=== PATIENT | male | born 1940 | race Caucasian/White ===

== ENCOUNTER → 2023-10-06 13:10 | Outpatient (REF) | payer MEDICARE, BC, SELFPAY | LOC: RAD 13:10 | PROVIDERS: ATTENDING PHYSICIAN Radiology Radiation Oncology; FAMILY PHYSICIAN Internal Medicine | DX: C34.90 Malignant neoplasm of unspecified part of unspecified bronchus or lung (principal) | CPT/HCPCS: 71250 ==

== ENCOUNTER → 2024-01-19 10:40 | Outpatient (REF) | payer MEDICARE, BC, SELFPAY | LOC: RAD 10:40 | PROVIDERS: ATTENDING PHYSICIAN Surgery Vascular Surgery; FAMILY PHYSICIAN Internal Medicine; REFERRING PHYSICIAN Radiology Radiation Oncology | DX: I71.43 Infrarenal abdominal aortic aneurysm, without rupture (principal); I71.40 Abdominal aortic aneurysm, without rupture, unspecified; C34.90 Malignant neoplasm of unspecified part of unspecified bronchus or lung | CPT/HCPCS: 71250; 74174; Q9967 ==

== ENCOUNTER → 2024-02-06 09:44 | Outpatient (REF) | payer MEDICARE, BC, SELFPAY | LOC: RAD 09:44 | PROVIDERS: ATTENDING PHYSICIAN Surgery Vascular Surgery; FAMILY PHYSICIAN Internal Medicine | DX: I71.40 Abdominal aortic aneurysm, without rupture, unspecified (principal) | CPT/HCPCS: 76770 ==

== ENCOUNTER → 2024-03-01 13:51 | Outpatient (REF) | payer MEDICARE, BC, SELFPAY | LOC: RCS 13:51 | PROVIDERS: ATTENDING PHYSICIAN Internal Medicine Critical Care Medicine; FAMILY PHYSICIAN Internal Medicine | DX: I27.20 Pulmonary hypertension, unspecified (principal) | CPT/HCPCS: 93306; Q9950 ==

== ENCOUNTER → 2024-03-30 07:17 | Outpatient (REF) | payer MEDICARE, BC, SELFPAY | LOC: DHCBC/DCA 07:17 | PROVIDERS: ATTENDING PHYSICIAN Student in an Organized Health Care Education/Training Program | DX: Z94.1 Heart transplant status (principal) | CPT/HCPCS: 78452; 93017; A9500; J2785 ==

== ENCOUNTER 2024-04-12 17:02 | Inpatient (IN) | payer MEDICARE, BC, SELFPAY ==
[2024-04-12] VITALS (8 sets, daily range): BP systolic 112–147; BP diastolic 83–99; BMI 22.0; BMI 21.8
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
[2024-04-12 13:35] LABS: % Basophils 0.5 % (0-2); % Eosinophils 0.7 % (0-6); % Immature Granulocytes 0.5 % (0-0.5); % Lymphocytes 14.8 % (20.5-51.1); % Monocytes 12.2 % (1.7-9.3); % Neutrophils 71.3 % (42.2-75.2); Absolute Eosinophils 0.1 10^3/uL (0-0.7); Absolute Lymphocytes 1.2 10^3/uL (1.2-3.4); Absolute Neutrophils 5.9 10^3/uL (1.4-6.5); Hematocrit 57.2 % (39.0-52.0); Hemoglobin 18.3 g/dL (13.0-18.0); Mean Corpuscular Hgb 27.6 pg (27.0-31.0); Mean Corpuscular Volume 86.3 fL (80.0-94.0); Nucleated Red Blood Cells % 0 % (-); Platelet Count 129 10^3/uL (130-400); Red Blood Cell Count 6.63 10^6/uL (4.70-6.10); Red Cell Dist. Width 16.2 % (11.5-14.5); White Blood Cell Count 8.3 10^3/uL (4.8-10.8)
[2024-04-12 13:38] LABS: ALT (SGPT) 11 U/L (0-50); AST (SGOT) 22 U/L (17-59); Albumin 4.5 g/dl (3.5-5.0); Alkaline Phosphatase 89 U/L (38-126); Blood Urea Nitrogen 71 mg/dl (9-20); Calcium 9.5 mg/dl (8.4-10.2); Carbon Dioxide 25 mmol/L (22-30); Chloride 103 mmol/L (98-107); Estimated Creatinine Clearance 32 ml/min; Glucose 227 mg/dl (70-99); Potassium 4.8 mmol/L (3.5-5.1); Sodium 144 mmol/L (135-145); Total Bilirubin 0.9 mg/dl (0.2-1.3); Total Protein 7.5 g/dl (6.3-8.2); eGFR 39.75
[2024-04-12] MEDS: TYLENOL 650 MG PO (13:53)
[2024-04-12 14:04] LABS: Troponin I < 0.012 ng/ml
[2024-04-12 14:06] LABS: Magnesium 2.2 mg/dl (1.6-2.3)
[2024-04-12 14:17] LABS: NT-proBNP 599 pg/ml
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
[2024-04-12 17:52] LABS: Glucose - Point of Care 98 mg/dl (70-99)
[2024-04-12] MEDS: SOLU-MEDROL PF 40 MG IV (18:38)
[2024-04-12 19:53] LABS: Glucose - Point of Care 179 mg/dl (70-99)
[2024-04-12] MEDS: ELIQUIS 5 MG PO (20:03)
[2024-04-12] MEDS: LOPID 600 MG PO (20:03)
[2024-04-12] MEDS: CELLCEPT 750 MG PO (20:05)
[2024-04-12] MEDS: LANTUS 0.36 UNITS SC (20:06)
[2024-04-12] MEDS: NEURONTIN 600 MG PO (21:52)
[2024-04-12] MEDS: TYLENOL 1000 MG PO (21:52)
[2024-04-12] MEDS: CRESTOR 20 MG PO (21:52)
[2024-04-12] MEDS: LOPRESSOR 100 MG PO (21:53)
[2024-04-12] MEDS: VASOTEC 20 MG PO (22:13)
[2024-04-12] MEDS: PROGRAF 1 MG PO (22:14)
--- NOTE | 2024-04-13 01:23 | PTCARENOTE ---
Received in bed upon change of shift. [address] at 6 liters. No signs of distress. Vitals stable. Call moura with in reach. AAox3.
[2024-04-13 04:13] VITALS: BP 156/96
[2024-04-13] MEDS: SYNTHROID 175 MCG PO (05:44)
[2024-04-13 06:00] VITALS: BMI 21.6
--- NOTE | 2024-04-13 06:34 | PTCARENOTE ---
Patient refused to have any chair or bed alarms. Pt AOx3. Educated patient on hospital protocol and fall risk education. Pt continues to insist that alarm should be removed despite education.
[2024-04-13 07:21] VITALS: BP 149/95
[2024-04-13 07:30] LABS: Glucose - Point of Care 183 mg/dl (70-99)
[2024-04-13 07:32] LABS: Hematocrit 62.1 % (39.0-52.0); Hemoglobin 19.8 g/dL (13.0-18.0); Mean Corp Hgb Conc. 31.9 g/dL (33.0-37.0); Mean Corpuscular Hgb 28.2 pg (27.0-31.0); Mean Corpuscular Volume 88.6 fL (80.0-94.0); Mean Platelet Volume 12.3 fL (7.4-10.4); Platelet Count 122 10^3/uL (130-400); Red Blood Cell Count 7.01 10^6/uL (4.70-6.10); Red Cell Dist. Width 16.3 % (11.5-14.5); White Blood Cell Count 7.3 10^3/uL (4.8-10.8)
[2024-04-13] MEDS: PROGRAF 1.5 MG PO (07:53)
[2024-04-13] MEDS: NEURONTIN 600 MG PO (07:54)
[2024-04-13] MEDS: FARXIGA 10 MG PO (07:54)
[2024-04-13] MEDS: VASOTEC 20 MG PO ×2 (07:54→20:19)
[2024-04-13] MEDS: TYLENOL 1000 MG PO ×3 (07:55→21:20)
[2024-04-13] MEDS: OSCAL CAL 500 500 MG PO (07:56)
[2024-04-13] MEDS: LOPRESSOR 100 MG PO ×2 (07:56→20:19)
[2024-04-13] MEDS: MAG-TAB SR 84 MG PO (07:56)
[2024-04-13] MEDS: THERAGRAN 1 TABLET PO (07:57)
[2024-04-13] MEDS: LOPID 600 MG PO ×2 (07:57→20:19)
[2024-04-13] MEDS: ELIQUIS 5 MG PO ×2 (07:57→20:20)
[2024-04-13] MEDS: LANTUS 0.36 UNITS SC ×2 (07:57→20:20)
[2024-04-13] MEDS: SOLU-MEDROL PF 40 MG IV (07:58)
[2024-04-13] MEDS: NOVOLOG FLEXPEN-LOW RESISTANCE 1 UNITS SC (08:00)
[2024-04-13 08:06] LABS: Blood Urea Nitrogen 75 mg/dl (9-20); Calcium 9.9 mg/dl (8.4-10.2); Carbon Dioxide 22 mmol/L (22-30); Chloride 103 mmol/L (98-107); Estimated Creatinine Clearance 31 ml/min; Glucose 216 mg/dl (70-99); Potassium 5.6 mmol/L (3.5-5.1); Sodium 143 mmol/L (135-145); eGFR 39.75
[2024-04-13] MEDS: SYMBICORT 80/4.5 MCG INHALER 2 PUFF INH ×2 (08:18→19:20)
[2024-04-13] MEDS: SPIRIVA RESPIMAT 2.5 MCG 2 PUFF INH (08:18)
[2024-04-13] MEDS: CELLCEPT 750 MG PO ×2 (08:23→20:19)
[2024-04-13 08:41] LABS: Glycohemoglobin (HgbA1c) 6.9 % (4.0-5.6)
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
[2024-04-13] MEDS: LOKELMA 10 GRAM PO (10:52)
[2024-04-13 11:13] VITALS: BP 126/86
[2024-04-13 11:59] LABS: Glucose - Point of Care 284 mg/dl (70-99)
[2024-04-13] MEDS: NOVOLOG FLEXPEN-LOW RESISTANCE 3 UNITS SC (12:12)
--- NOTE | 2024-04-13 13:55 | PTOTSP ---
Speech Language Pathology
Pt seen for clinical bedside swallow evaluation. Pt and denied any previous or current dysphagia symptoms. P.O. trials of puree, regular solids, and thin liquids provided. Adequate mastication, bolus formation, and A-P transit noted with no
oral residue. No overt signs of aspiration.
Recommend:
(1) Regular solids/thin liquids
(2) General aspiration precautions
(3) Meds as tolerated
(4) STONECUTTER APPRENTICE HAND to sign off. Please reconsult as indicated
[2024-04-13 15:17] VITALS: BP 124/74
--- NOTE | 2024-04-13 15:57 | CM ---
Patient lives with spouse in a one story home with 4 steps to enter, patient is independent with adl's and ambulation, patient has home oxygen at 3 liters from [employer]. shelter case manager will follow with patient progress with physical
therapy and assist with discharge planning needs for patient.
Plan; To follow with patient progress and assist with discharge planning.
[2024-04-13] MEDS: NEURONTIN 300 MG PO ×2 (16:16→21:20)
[2024-04-13 16:56] LABS: Glucose - Point of Care 376 mg/dl (70-99)
[2024-04-13] MEDS: NOVOLOG FLEXPEN-LOW RESISTANCE 5 UNITS SC (17:19)
[2024-04-13 19:52] VITALS: BP 119/79
[2024-04-13 20:01] LABS: Glucose - Point of Care 397 mg/dl (70-99)
[2024-04-13] MEDS: PROGRAF 1 MG PO (21:20)
[2024-04-13] MEDS: CRESTOR 20 MG PO (21:20)
[2024-04-13 23:00] VITALS: BP 105/70
[2024-04-14 03:28] VITALS: BP 104/67
[2024-04-14 05:51] VITALS: BMI 21.5
[2024-04-14 06:00] VITALS: BMI 21.5
[2024-04-14] MEDS: SYNTHROID 175 MCG PO (06:09)
[2024-04-14 07:00] VITALS: BP 118/78
[2024-04-14 07:57] LABS: Hematocrit 56.5 % (39.0-52.0); Mean Corp Hgb Conc. 31.9 g/dL (33.0-37.0); Mean Corpuscular Hgb 28.4 pg (27.0-31.0); Mean Corpuscular Volume 89.1 fL (80.0-94.0); Mean Platelet Volume 11.8 fL (7.4-10.4); Platelet Count 136 10^3/uL (130-400); Red Blood Cell Count 6.34 10^6/uL (4.70-6.10); Red Cell Dist. Width 15.1 % (11.5-14.5); White Blood Cell Count 11.2 10^3/uL (4.8-10.8)
[2024-04-14] MEDS: SPIRIVA RESPIMAT 2.5 MCG 2 PUFF INH (07:57)
[2024-04-14] MEDS: SYMBICORT 80/4.5 MCG INHALER 2 PUFF INH ×2 (07:57→19:25)
[2024-04-14 08:00] LABS: Glucose - Point of Care 97 mg/dl (70-99)
[2024-04-14] MEDS: NOVOLOG FLEXPEN-LOW RESISTANCE SC (08:28)
[2024-04-14 08:30] LABS: Blood Urea Nitrogen 83 mg/dl (9-20); Carbon Dioxide 29 mmol/L (22-30); Chloride 104 mmol/L (98-107); Estimated Creatinine Clearance 33 ml/min; Glucose 78 mg/dl (70-99); Potassium 5.4 mmol/L (3.5-5.1); Sodium 144 mmol/L (135-145); eGFR 42.75
[2024-04-14] MEDS: LANTUS 0.36 UNITS SC ×2 (08:31→21:30)
[2024-04-14] MEDS: ELIQUIS 5 MG PO ×2 (08:32→21:25)
[2024-04-14] MEDS: LOPID 600 MG PO ×2 (08:32→21:27)
[2024-04-14] MEDS: VASOTEC 20 MG PO ×2 (08:32→21:32)
[2024-04-14] MEDS: OSCAL CAL 500 500 MG PO (08:34)
[2024-04-14] MEDS: FARXIGA 10 MG PO (08:34)
[2024-04-14] MEDS: TYLENOL 1000 MG PO ×3 (08:35→21:33)
[2024-04-14] MEDS: NEURONTIN 300 MG PO ×3 (08:35→21:32)
[2024-04-14] MEDS: MAG-TAB SR 84 MG PO (08:36)
[2024-04-14] MEDS: CELLCEPT 750 MG PO ×2 (08:36→21:25)
[2024-04-14] MEDS: LOPRESSOR 100 MG PO ×2 (08:38→21:31)
[2024-04-14] MEDS: PROGRAF 1.5 MG PO (08:38)
[2024-04-14] MEDS: THERAGRAN 1 TABLET PO (08:39)
[2024-04-14] MEDS: SOLU-MEDROL PF 40 MG IV (08:39)
--- NOTE | 2024-04-14 09:39 | W.PN.HOSP.TC ---
Today's Communication/Plan
-
c/w steroid
c/w Nebs
Lokelma
Request for a private room, as pt is a transplant pt on immunosuppressive treatment.
Assessment / Plan
Assessment / Plan
Physical exam:
GEN: No acute distress, conversant, pleasant
HEENT: anicteric, extraocular movements intact, clear oropharynx without exudates
CV: normal S1/S2
RESP: Limited, Rhonchi, mild wheezes.
GI: soft, non-distended, not tender to palpation.
EXT: warm, well perfused, no edema bilaterally
NEURO: AAOx3, non-focal
Psych: no agitation, pleasant.
Assessment and plan:
# Acute superior endplate fracture of L1 with underlying moderate loss of vertebral body height, mild retropulsion of the posterior superior endplate. Multilevel lumbar discogenic degenerative disease/diffuse bone demineralization.
he is feeling better.
Continue with pain control. No worsening pain, no neurologic deficits on exam. c/w Tylenol [id number] and monitor. ordered PT/OT. No local tenderness on examination. No swelling on the back.
#Acute on chronic hypoxic respiratory failure. History of lung cancer.
Underlying COPD, exacerbation
Last echo showed increasing PASP in last few months.
His oxygen requirement is increasing, will c/w midflow.
Likely precipitated by inability to take deep breath from back pain. Mild wheezes heard on examination. c/w steroid.
Continue with nebulizer treatment. I d/w space physicist Dr. Ramirez, pt has advanced lung disease, c/w o2 and titrate as possible. Also consider comfort care if no improvement.
# Leukocytosis, reactive
No fevers
# Reactive polycythemia
Due to Advanced lung disease.
# Chronic kidney disease stage IIIb. Monitor renal function, avoid nephrotoxic agents.
# Status post heart transplant. Continue immunosuppressive therapy. Check tacrolimus level. No fevers reported
# History of coronary artery disease.
# Hypothyroidism. No changes intended
# Diabetes type 2. Continue home medication in addition to insulin sliding scale.
# Hyperkalemia, c/w Lokelma
Total time spent to see the patient, examine the patient on the floor, review data and lab results, discuss treatment plan with patient, pulmonary doctor, nursing staff around 55 minutes
Anticipated Discharge: 24 - 48 hours
Subjective/Interval History
-
Date of Service: April 14, 2024
No chest pain
No sob
Objective Data
-
Labs:
Laboratory Results
04/14/24
07:36
WBC 11.2 H
Hgb 18.0
Hct 56.5 H
Plt Count 136
Sodium 144
Potassium 5.4 H
Chloride 104
Carbon Dioxide 29
BUN 83 H
Creatinine 1.6 H
Glucose 78
Calcium 10.0
Vital Signs:
Vital Signs
Temp Pulse Resp BP Pulse Ox
97.8 F 76 22 118/78 94
04/14/24 07:00 04/14/24 08:32 04/14/24 07:00 04/14/24 08:32 04/14/24 07:00
I&O
04/13/24 04/14/24 04/15/24
06:59 06:59 06:59
Intake Total 720 / 720
Output Total 300 / 300 1550 / 1550
Balance -300 / -300 -830 / -830
[2024-04-14 11:13] VITALS: BP 95/63
[2024-04-14 11:14] LABS: Glucose - Point of Care 177 mg/dl (70-99)
[2024-04-14] MEDS: LOKELMA 10 GRAM PO ×2 (11:44→23:30)
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
[2024-04-14] MEDS: NOVOLOG FLEXPEN-LOW RESISTANCE 1 UNITS SC (12:22)
--- NOTE | 2024-04-14 14:15 | CM ---
Addendum entered by Gracy Benavides 04/14/24 14:56:
sort manager received a consult for hospice, watch case polisher met with patient and family at bedside and reviewed hospice options and patient has selected [facility], referral sent to [facility].
Referral sent to [facility].
Original Note:
Chart reviewed and patient is currently requiring 8 liters of oxygen patient has home oxygen at 3-4 liters, per chart patient with kyphosis and fracture of L1, patient may benefit from PT/OT.
Plan; To follow with patient progress. Per physician note private room has been requested.
[2024-04-14 15:17] VITALS: BP 141/89
--- NOTE | 2024-04-14 15:43 | HOSPNOTE ---
Spoke with family and patient about hospice and the philosophy. The patient needs some time to think about things and is not sure he wants to go home with hospice services. He is thinking he may still want to continue with cardiology visits and
testing. The family will call me tomorrow with an answer but leaning towards going home with VN.
[2024-04-14 17:32] LABS: Glucose - Point of Care 243 mg/dl (70-99)
[2024-04-14] MEDS: NOVOLOG FLEXPEN-LOW RESISTANCE 2 UNITS SC (17:44)
--- NOTE | 2024-04-14 18:07 | TRANSFER ---
Patient received into room 426 in wheelchair. Oriented x3, pleasant. Family at bedside. Oriented to new room and plan of care, pt with no acute complaints, resting comfortably on 8L midflow O2. Call moura within reach.
[2024-04-14 19:30] VITALS: BP 142/89
[2024-04-14 21:11] LABS: Glucose - Point of Care 222 mg/dl (70-99)
[2024-04-14] MEDS: PROGRAF 1 MG PO (21:33)
[2024-04-14] MEDS: CRESTOR 20 MG PO (21:35)
[2024-04-14 23:29] VITALS: BP 102/67
[2024-04-15 03:31] VITALS: BP 119/80
[2024-04-15] MEDS: SYNTHROID 175 MCG PO (05:49)
[2024-04-15 05:58] VITALS: BMI 21.3
[2024-04-15 07:25] VITALS: BP 144/93
[2024-04-15 07:49] LABS: Glucose - Point of Care 67 mg/dl (70-99)
[2024-04-15] MEDS: SPIRIVA RESPIMAT 2.5 MCG 2 PUFF INH (08:07)
[2024-04-15] MEDS: SYMBICORT 80/4.5 MCG INHALER 2 PUFF INH ×2 (08:07→20:23)
[2024-04-15] MEDS: NOVOLOG FLEXPEN-LOW RESISTANCE SC ×2 (08:08→11:46)
[2024-04-15 08:13] LABS: Glucose - Point of Care 82 mg/dl (70-99)
[2024-04-15] MEDS: LANTUS SC (08:16)
[2024-04-15] MEDS: CELLCEPT 750 MG PO ×2 (08:25→20:34)
[2024-04-15] MEDS: PROGRAF 1.5 MG PO (08:25)
[2024-04-15] MEDS: LOPRESSOR 100 MG PO ×2 (08:26→20:34)
[2024-04-15] MEDS: NEURONTIN 300 MG PO ×3 (08:26→21:58)
[2024-04-15] MEDS: OSCAL CAL 500 500 MG PO (08:26)
[2024-04-15] MEDS: FARXIGA 10 MG PO (08:26)
[2024-04-15] MEDS: LOPID 600 MG PO ×2 (08:27→20:34)
[2024-04-15] MEDS: MAG-TAB SR 84 MG PO (08:27)
[2024-04-15] MEDS: THERAGRAN 1 TABLET PO (08:27)
[2024-04-15] MEDS: LOKELMA 10 GRAM PO (08:27)
[2024-04-15] MEDS: VASOTEC 20 MG PO (08:27)
[2024-04-15] MEDS: TYLENOL 1000 MG PO ×3 (08:27→21:58)
[2024-04-15] MEDS: ELIQUIS 5 MG PO ×2 (08:27→20:33)
[2024-04-15] MEDS: SOLU-MEDROL PF 40 MG IV (08:27)
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
[2024-04-15 09:04] LABS: Blood Urea Nitrogen 75 mg/dl (9-20); Calcium 9.7 mg/dl (8.4-10.2); Carbon Dioxide 27 mmol/L (22-30); Chloride 103 mmol/L (98-107); Estimated Creatinine Clearance 35 ml/min; Glucose 46 mg/dl (70-99); Potassium 4.5 mmol/L (3.5-5.1); Sodium 144 mmol/L (135-145); eGFR 46.19
[2024-04-15] MEDS: LANTUS 0.15 UNITS SC (09:39)
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
[2024-04-15 10:07] LABS: Glucose - Point of Care 209 mg/dl (70-99)
--- NOTE | 2024-04-15 11:01 | HOSPNOTE ---
Spoke with spouse and patient and family are now in agreement with hospice and the philosophy. Patient will be driven home by spouse. The spouse states there is an oxygen tank already in the patient's room for transport tomorrow. Equipment will be
ordered and delivered. CM and Attending updated with plan.
[2024-04-15 11:30] VITALS: BP 122/78
--- NOTE | 2024-04-15 11:36 | CM ---
CM reviewed chart, discussed with [facility], plan to return home tomorrow with Hospice services, to transport. IMM reviewed with patient, signed, placed in chart, patient provided with copy. CM will continue to follow for all
discharge planning needs.
Plan; home with and Hospice, tomorrow 04/16/24.
[2024-04-15 11:43] LABS: Glucose - Point of Care 100 mg/dl (70-99)
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
[2024-04-15 15:36] VITALS: BP 124/79
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
[2024-04-15 16:34] LABS: Glucose - Point of Care 165 mg/dl (70-99)
[2024-04-15] MEDS: NOVOLOG FLEXPEN-LOW RESISTANCE 1 UNITS SC (18:08)
[2024-04-15 19:53] VITALS: BP 126/82
[2024-04-15] MEDS: PROGRAF 1 MG PO (21:57)
[2024-04-15] MEDS: LANTUS 0.25 UNITS SC (21:57)
[2024-04-15] MEDS: CRESTOR 20 MG PO (21:58)
[2024-04-15 22:01] LABS: Glucose - Point of Care 294 mg/dl (70-99)
[2024-04-15 23:30] VITALS: BP 144/97
[2024-04-16 00:47] VITALS: BP 144/97
[2024-04-16 04:17] VITALS: BP 133/93
[2024-04-16] MEDS: SYNTHROID 175 MCG PO (05:29)
[2024-04-16 06:00] VITALS: BMI 21.3
[2024-04-16 06:45] LABS: Glucose - Point of Care 46 mg/dl (70-99)
[2024-04-16 07:25] VITALS: BP 139/92
[2024-04-16 07:38] LABS: Glucose - Point of Care 96 mg/dl (70-99)
[2024-04-16] MEDS: SYMBICORT 80/4.5 MCG INHALER 2 PUFF INH (07:50)
[2024-04-16] MEDS: SPIRIVA RESPIMAT 2.5 MCG 2 PUFF INH (07:50)
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
[2024-04-16] MEDS: NOVOLOG FLEXPEN-LOW RESISTANCE SC ×2 (09:51→13:03)
[2024-04-16] MEDS: CELLCEPT 750 MG PO (09:52)
[2024-04-16] MEDS: NEURONTIN 300 MG PO (09:53)
[2024-04-16] MEDS: PROGRAF 1.5 MG PO (09:53)
[2024-04-16] MEDS: OSCAL CAL 500 500 MG PO (09:53)
[2024-04-16] MEDS: LOPRESSOR 100 MG PO (09:54)
[2024-04-16] MEDS: FARXIGA 10 MG PO (09:54)
[2024-04-16] MEDS: MAG-TAB SR 84 MG PO (09:54)
[2024-04-16] MEDS: THERAGRAN 1 TABLET PO (09:55)
[2024-04-16] MEDS: ELIQUIS 5 MG PO (09:55)
[2024-04-16] MEDS: LOPID 600 MG PO (09:55)
[2024-04-16] MEDS: SOLU-MEDROL PF 40 MG IV (09:55)
[2024-04-16] MEDS: TYLENOL 1000 MG PO (09:56)
[2024-04-16] MEDS: LANTUS 0.25 UNITS SC (10:02)
--- NOTE | 2024-04-16 10:55 | CM ---
Addendum entered by Tammy Juan 04/16/24 15:43:
Respiratory to see patient, faxed updated information to [facility]. Clinicals faxed to Palliative Care ([phone]). Patient and family seen bedside, explained [facility] will communicate with patient/family about delivering
new O2.
Addendum entered by Tammy Juan 04/16/24 14:35:
Received update from Hospice, Hospitalist, patient now wishing to return home with VN and Palliative Care, would not like Hospice services. [facility], [facility]. Updated clinicals/script sent to [facility] as patient now requiring 8L O2, awaiting to hear if patient needs new O2 testing.
Plan; no longer home with hospice, home with [facility], PAL care, new O2 needs.
Original Note:
CM reviewed chart, met with patient bedside. Patient plan for discharge home today with Hospice. Patient reports awaiting for oxygen delivery, then will provide transport home. CM will continue to follow for all discharge planning needs.
Plan; home with Hospice.
[2024-04-16 11:32] LABS: Glucose - Point of Care 86 mg/dl (70-99)
[2024-04-16 11:46] VITALS: BP 97/65
--- NOTE | 2024-04-16 13:17 | HOSPNOTE ---
Spoke at length with family and now they are not wishing for hospice services. I spoke about coming back and forth to the hospital but the patient wants to go to the doctor in regards to his AAA. I have a call into case management about palliative
care and SN being set up. Will await a phone call.
--- NOTE | 2024-04-16 14:19 | W.PN.UPDATE ---
Update Note
Progress Note Update
Discharge planning
Patient seen earlier and he reported that his was waiting for hospice agency to deliver oxygen to his home and then be discharged to home. He reported the he was comfortable with his decision regarding hospice and he was going to follow-up
with their doctor only.
I received a call from hospice nurse Peace that the patient changed his mind and did not want hospice but wanted to do palliative care. Oxygen had been delivered from hospice agency to his home.
I went to see the patient. He was sitting in chair and fully oriented. Patient reported that he wanted palliative care and not hospice. He felt that he was misinformed about hospice ( felt he was forced into it with some angry words). He wanted
to continue his medications and outpatient follow-ups with his doctors. He said he had talked to his daughter also and all in agreement about palliative care. I informed the patient that we would always work with him to provide the safest and best
care available within out abilities.
I Will work with end worker Tammy to coordinate with palliative care. Consult for palliative was placed. Will do home health services. The goal is to discharge patient home with home care services and palliative care. Patient seems not in
distress and able to ambulate, going to the bathroom even without oxygen with no symptoms. He should continue to use his oxygen and follow-up with his primary doctor and pulmonary doctor.
He remains on midflow O2. No driving especially now he is on higher oxygen.
This plan was discussed with egg caser and pulmonary doctor production machine shop supervisor also.
I updated nursing staff
Appreciate social service help.
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
--- NOTE | 2024-04-16 15:05 | VNURNOTE ---
Home Health Liaison met with patient, spouse and daughter at bedside to discuss [facility] nurse/therapy, visits, schedule and homebound status. Patient is agreeable and understands that visits at home will be 2-3 x per week to assess and teach medical
management. Family confirms he had an 02 concentrator delivered to house and he has portable 02. Advised daughter to bring portable 02 tank to hospital so patient can use to transport home. [facility] brochure provided with contact information. Patient
is aware that [facility] will contact them for start of care in 1-2 days after discharge from . [facility] supervisor word processing Jaxson notified about admission. [facility] referral completed in [facility].
--- NOTE | 2024-04-16 15:24 | RESPNOTE ---
patients resting room air saturation is 90% on 8L. resting room air is 85%.
[2024-04-16 15:40] VITALS: BP 135/93
== END 2024-04-16 16:15 | disposition home health service (06) | DRG 542 ==
LOC: 4 WEST ACU 17:02
PROVIDERS: Nurse Practitioner Family; ADMITTING PHYSICIAN Internal Medicine; EMERGENCY PHYSICIAN Emergency Medicine; FAMILY PHYSICIAN Internal Medicine; OTHER PHYSICIAN Internal Medicine
DX: M80.08XA Age-related osteoporosis with current pathological fracture, vertebra(e), initial encounter for fracture (principal); J96.21 Acute and chronic respiratory failure with hypoxia; I25.811 Atherosclerosis of native coronary artery of transplanted heart without angina pectoris; I13.0 Hypertensive heart and chronic kidney disease with heart failure and stage 1 through stage 4 chronic kidney disease, or unspecified chronic kidney disease; D84.821 Immunodeficiency due to drugs; I42.9 Cardiomyopathy, unspecified; N17.9 Acute kidney failure, unspecified; M54.9 Dorsalgia, unspecified; D69.6 Thrombocytopenia, unspecified; D75.1 Secondary polycythemia; E87.5 Hyperkalemia; E03.9 Hypothyroidism, unspecified; J43.9 Emphysema, unspecified; N18.32 Chronic kidney disease, stage 3b; I71.43 Infrarenal abdominal aortic aneurysm, without rupture; I71.40 Abdominal aortic aneurysm, without rupture, unspecified; E11.22 Type 2 diabetes mellitus with diabetic chronic kidney disease; E78.00 Pure hypercholesterolemia, unspecified; E11.65 Type 2 diabetes mellitus with hyperglycemia; V49.9XXA Car occupant (driver) (passenger) injured in unspecified traffic accident, initial encounter; Y93.9 Activity, unspecified; Y92.414 Local residential or business street as the place of occurrence of the external cause; Z86.711 Personal history of pulmonary embolism; Z99.81 Dependence on supplemental oxygen; Z79.01 Long term (current) use of anticoagulants; Z85.118 Personal history of other malignant neoplasm of bronchus and lung; Z79.60 Long term (current) use of unspecified immunomodulators and immunosuppressants; Z87.891 Personal history of nicotine dependence; Z82.49 Family history of ischemic heart disease and other diseases of the circulatory system; Z82.3 Family history of stroke; Z91.030 Bee allergy status; Z91.041 Radiographic dye allergy status; Z79.890 Hormone replacement therapy; Z79.51 Long term (current) use of inhaled steroids; Z79.621 Long term (current) use of calcineurin inhibitor; Z79.624 Long term (current) use of inhibitors of nucleotide synthesis; Z86.16 Personal history of COVID-19; Z87.442 Personal history of urinary calculi; Z87.01 Personal history of pneumonia (recurrent)
CPT/HCPCS: 71046; 72110; 80048; 80053; 80197; 82962; 83036; 83735; 83880; 84484; 85025; 85027; 92610; 93005; 94640; 99285

== ENCOUNTER 2024-07-11 02:05 | Emergency (ER) | payer MEDICARE, BC, SELFPAY ==
[2024-07-11] VITALS (7 sets, daily range): BP systolic 97–142; BP diastolic 67–95; BMI 20.7
--- NOTE | 2024-07-11 02:26 | EDRN ---
Pt says he is on palliative care at this time and wears 8 lpm O2 via nasal cannula at all times. Pt has a humidifier at home - TT to RT to set up humidified O2 for pt.
[2024-07-11 02:47] LABS: % Basophils 0.3 % (0-2); % Eosinophils 0.2 % (0-6); % Immature Granulocytes 0.4 % (0-0.5); % Lymphocytes 11.4 % (20.5-51.1); % Monocytes 6.3 % (1.7-9.3); % Neutrophils 81.4 % (42.2-75.2); Absolute Lymphocytes 1.2 10^3/uL (1.2-3.4); Absolute Monocytes 0.7 10^3/uL (0.1-0.6); Absolute Neutrophils 8.7 10^3/uL (1.4-6.5); Hematocrit 49.6 % (39.0-52.0); Hemoglobin 15.5 g/dL (13.0-18.0); Mean Corp Hgb Conc. 31.3 g/dL (33.0-37.0); Mean Corpuscular Hgb 28.7 pg (27.0-31.0); Mean Corpuscular Volume 91.7 fL (80.0-94.0); Nucleated Red Blood Cells % 0 % (-); Platelet Count 151 10^3/uL (130-400); Red Blood Cell Count 5.41 10^6/uL (4.70-6.10); Red Cell Dist. Width 14.5 % (11.5-14.5); White Blood Cell Count 10.7 10^3/uL (4.8-10.8)
[2024-07-11 03:01] LABS: ALT (SGPT) < 10 U/L (0-50); AST (SGOT) 18 U/L (17-59); Alkaline Phosphatase 96 U/L (38-126); Blood Urea Nitrogen 53 mg/dl (9-20); Calcium 9.3 mg/dl (8.4-10.2); Carbon Dioxide 28 mmol/L (22-30); Chloride 102 mmol/L (98-107); Estimated Creatinine Clearance 34 ml/min; Glucose 208 mg/dl (70-99); Lipase 176 U/L (23-300); Potassium 5.3 mmol/L (3.5-5.1); Sodium 142 mmol/L (135-145); Total Bilirubin 0.6 mg/dl (0.2-1.3); Total Protein 7.1 g/dl (6.3-8.2); eGFR 46.19
--- NOTE | 2024-07-11 03:53 | ED.GENMED ---
History of Present Illness
<ALBER Davalos - Last Filed: 07/11/24 05:37>
General
Chief Complaint: Abdominal Pain
Source: patient and spouse
Exam Limitations: none
Time Seen by Provider: 07/11/24 03:20
History of Present Illness
History of Present Illness:
This is a 83-year-old male with PMH of lung cancer, atrial fibrillation, COPD, HTN, hyperlipidemia, diabetes presents the emergency department with c/o abdominal pain. Pt reports sudden onset of diffuse abdominal pain starting at 9pm. Pt took
Tylenol at home and is unable to determine if it provided any relief. He describes a diffuse aching pain with pressure that was 8/10 at its worst and has now subsided to 2/10. He describes radiation of pain to bilateral flanks when the abdominal
pain was severe. Admits to mild dysuria and dark urine. Denies fever/chills, cough, chest pain, palpitations, vomiting, change in bowel habits.
Past History
<ALBER Davalos - Last Filed: 07/11/24 05:37>
Past History
ED Past Medical History: Arrthythmia, Cancer, CHF, HTN, Hypercholesterolemia, IDDM and Other (Heart transplant)
ED Past Surgical History: Other (Heart transplant)
Social History
Tobacco: Non-smoker
Alcohol: None
Drug: None
Personal:
Living: with family
Employment: Retired
Family History
Family History: Other ( sick with similar symptoms)
Phy Exam
<ALBER Davalos - Last Filed: 07/11/24 05:37>
Physical Exam
Physical Exam:
Skin: [place], soft, well-hydrated
Head: Atraumatic, normocephalic
Chest and Lungs: muscle and respiratory effort symmetric without use of accessory muscles; vesicular breath sounds without adventitious sounds; even, quiet breathing
Heart: No lifts or heaves visible; regular rate and rhythm
PV: radial, dorsalis pedis and posterior tibial pulses all intact bilaterally; no tenderness to palpation of LE
Abd: soft, rounded, non-distended abdomen; aorta midline with no visible pulsation; normoactive bowel sounds; no tenderness on palpation; no CVA tenderness
Course
<Kerri Funk, [facility] - Last Filed: 07/11/24 05:37>
Orders/Labs/Results
Orders:
Orders
07/11/24 02:17
Complete Blood Count/With Diff Urgent
Comprehensive Metabolic Panel Urgent
Lipase Urgent
07/11/24 04:34
CT Abd/pelvis Angio W/wo Iv Urgent
Comment:
Reason For Exam: acute upper abd pain, hx AAA s/p repair
0.9% Sodium Chloride 1000 ml [Nss] 1,000 ml IV BOLUS
Diphenhydramine [Benadryl] 50 mg IV NOW STA
Hydrocortisone Sod Succinate [Solu-Cortef] 200 mg IV NOW STA
07/11/24 06:48
Urinalysis Reflex To Culture Urgent
Date Specimen was Collected: 07/11/24
Time Specimen was Collected: 06:45
Urine Microscopic Reflex Cult Urgent
07/11/24 07:10
Lactic Acid Urgent
Abnormal Lab Results
07/11/24 07/11/24
02:17 06:48
MCHC 31.3 L g/dL
(33.0-37.0)
MPV 12.0 H fL
(7.4-10.4)
Absolute Neuts (auto) 8.7 H 10^3/uL
(1.4-6.5)
Absolute Monos (auto) 0.7 H 10^3/uL
(0.1-0.6)
Neutrophils % 81.4 H %
(42.2-75.2)
Lymphocytes % 11.4 L %
(20.5-51.1)
Potassium 5.3 H mmol/L
(3.5-5.1)
BUN 53 H mg/dl
(9-20)
Creatinine 1.5 H mg/dL
(0.7-1.3)
Glucose 208 H mg/dl
(70-99)
Urine Glucose 3+ A
(Negative)
Urine Albumin (Reflex) 1+ A
(Neg - Trace)
07/11/24 02:17
07/11/24 02:17
Vital Signs
Initial and Last Documented VS:
Initial Vital Signs
Temp Pulse Resp BP Pulse Ox
97.5 F 86 19 142/91 91
07/11/24 02:15 07/11/24 02:15 07/11/24 02:15 07/11/24 02:15 07/11/24 02:15
Last Documented Vital Signs
Temp Pulse Resp BP Pulse Ox
97.5 F 85 16 131/90 95
07/11/24 02:15 07/11/24 08:00 07/11/24 08:00 07/11/24 07:00 07/11/24 08:00
<Minal Yo, DO - Last Filed: 07/11/24 08:09>
Orders/Labs/Results
Orders:
Orders
07/11/24 02:17
Complete Blood Count/With Diff Urgent
Comprehensive Metabolic Panel Urgent
Lipase Urgent
07/11/24 04:34
CT Abd/pelvis Angio W/wo Iv Urgent
Comment:
Reason For Exam: acute upper abd pain, hx AAA s/p repair
0.9% Sodium Chloride 1000 ml [Nss] 1,000 ml IV BOLUS
Diphenhydramine [Benadryl] 50 mg IV NOW STA
Hydrocortisone Sod Succinate [Solu-Cortef] 200 mg IV NOW STA
07/11/24 06:48
Urinalysis Reflex To Culture Urgent
Date Specimen was Collected: 07/11/24
Time Specimen was Collected: 06:45
Urine Microscopic Reflex Cult Urgent
07/11/24 07:10
Lactic Acid Urgent
Abnormal Lab Results
07/11/24 07/11/24
02:17 06:48
MCHC 31.3 L g/dL
(33.0-37.0)
MPV 12.0 H fL
(7.4-10.4)
Absolute Neuts (auto) 8.7 H 10^3/uL
(1.4-6.5)
Absolute Monos (auto) 0.7 H 10^3/uL
(0.1-0.6)
Neutrophils % 81.4 H %
(42.2-75.2)
Lymphocytes % 11.4 L %
(20.5-51.1)
Potassium 5.3 H mmol/L
(3.5-5.1)
BUN 53 H mg/dl
(9-20)
Creatinine 1.5 H mg/dL
(0.7-1.3)
Glucose 208 H mg/dl
(70-99)
Urine Glucose 3+ A
(Negative)
Urine Albumin (Reflex) 1+ A
(Neg - Trace)
07/11/24 02:17
07/11/24 02:17
Vital Signs
Initial and Last Documented VS:
Initial Vital Signs
Temp Pulse Resp BP Pulse Ox
97.5 F 86 19 142/91 91
07/11/24 02:15 07/11/24 02:15 07/11/24 02:15 07/11/24 02:15 07/11/24 02:15
Last Documented Vital Signs
Temp Pulse Resp BP Pulse Ox
97.5 F 85 16 131/90 95
07/11/24 02:15 07/11/24 08:00 07/11/24 08:00 07/11/24 07:00 07/11/24 08:00
<ALBER Davalos - Last Filed: 07/11/24 05:37>
MDM/Problems Addressed
MDM/Problems Addressed:
This is a 83 y/o male with abdominal pain that came on suddenly and was 8/10 severity but has since subsided to a 2/10. Pt has an extensive PMH including heart transplant and AAA that was surgically repaired. Will obtain UA and CT.
<ALBER Davalos - Last Filed: 07/11/24 05:37>
*Critical Care Note
Total Time (30-74mins, 75-104mins- exclusive of procedures): Not Applicable
<Mnial Yo DO - Last Filed: 07/11/24 08:09>
*Radiology
Radiology exam reviewed: radiology read reviewed
*Pulse Oximetry
Patient hypoxic: no
ED Attending Note
<ABLER Davalos - Last Filed: 07/11/24 05:37>
-
Portions of this chart may have been created with voice recognition software.� Occasional wrong word or��sound alike� substitutions may have occurred due to the inherent limitations of voice recognition software.
<Minal Yo DO - Last Filed: 07/11/24 08:09>
ED Attending Note
Patient seen and examined by attending physician: Yes
I performed the substantive portion of visit, reviewed & personally made and approve the management plan that is documented in note by myself or MAYURI.: Yes
ED Attending Note:
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
He also has history of endovascular AAA repair as well as history of incidental gallstones.
Resides at home on palliative care. Follows with vascular surgery but admits that he has not been able to follow-up with surveillance AAA imaging due to significant O2 requirement and generalized debility.
Tonight he developed mid to upper abdominal ache that began around 9 PM, has been persistent with intermittent waves of moderate pain. He did take Tylenol without relief however since arrival to the ED abdominal pain seems markedly improved.
He denies back pain nor chest pain, no cough no increased shortness of breath. He has not had a fever nor chills. He did note that his urine was somewhat darker in color tonight as well as mild dysuria.
Prior to tonight he has been feeling fairly well and at his baseline.
GENERAL: 83-year-old gentleman appears his stated age, appears somewhat chronically debilitated, nasal cannula oxygen with humidifier in place. He is bright and alert, pleasant, appears in no acute distress.
EYE: anicteric
NECK: Supple, nontender, no meningismus, no significant adenopathy.
ENT: oral mucosa is moist. Lips are mildly dry. No rhinorrhea.
CARDIAC: Regular rate and rhythm. no murmur.
LUNGS: Mild resting tachypnea, mildly decreased breath sounds throughout.
ABDOMEN: Soft, nondistended, without focal tenderness, no r/g, no cvat. normoactive BS.
NEUROLOGICAL: Alert and oriented x3, no focal neuro deficits.
SKIN: Warm and dry, normal color, skin intact. No rash.
MUSCULOSKELETAL: No C/C/E. peripheral pulses are full and equal b/l. No palpable tenderness.
PSYCH: Normal and appropriate interaction.
Concern for acute gastroenteritis, acute gastritis, acute biliary colic, cholecystitis, pancreatitis, small bowel obstruction, concern for abdominal aortic aneurysm endovascular leak, UTI, pyelonephritis.
Currently comfortable and pain-free.
Labs are overall reassuring with normal white blood cell count, normal H&H.
Chemistries show chronic kidney disease with creatinine of 1.5, stable and unchanged from previous. Moderately elevated BUN of 53 is actually improved from previous. Potassium of 5.3, mildly elevated but similar elevations noted previously.
LFTs within normal limits. Blood sugar elevated at 208 but no evidence of acidosis.
Will initiate IV fluids, will check CT angio abdomen and pelvis.
Will check urinalysis.
07:00
Patient remains comfortable.
CAT scan shows infrarenal AAA measuring 6.1 x 5.9 cm unchanged from previous CTA. Status post iliac aortic endograft placement.
There is note of extensive mesenteric inflammation about multiple loops of small bowel reflecting enteritis�infectious versus inflammatory versus ischemic.
A few top normal caliber loops of small bowel suggestive of developing obstruction versus ileus.
It is reassuring that patient is pain-free and comfortable. Small bowel obstruction unlikely an ischemic bowel is unlikely but will check lactic acid for completeness sake.
I suspect enteritis either foodborne versus viral. Reassuring that he has had no diarrhea, no hematochezia, no fever and white blood cell count is normal.
There is also note of age-indeterminate L1 vertebral body compression fracture causing mild canal stenosis. This is new from previous CT January 2024. Patient denies back pain or recent falls. There is no radicular signs or symptoms.
08:00
Patient is tolerating clear liquids well without return of abdominal pain. No nausea nor vomiting. No diarrhea.
Abdomen is soft without appreciable tenderness.
Urinalysis is unremarkable.
Lactic acid is normal.
I suspect viral enteritis/gastroenteritis. Will discharge to home with recommendations to limit his diet to clear liquids this morning, slowly advance to bland soft foods later today as tolerated.
If diarrhea ensues, may take [id number] Imodium as needed.
Prompt follow-up with PCP for recheck.
Return precautions discussed.
Discharge Plan
Departure
Patient Disposition: Home (Routine Discharge)
Date of Disposition: 07/11/24
Time of Disposition: 08:06
Patient with high blood pressure during this ER visit?: No
Condition: Good
Discharge Problem:
Acute gastroenteritis
Instructions: Viral gastroenteritis in adults, Clear Liquid Diet
Prescriptions:
No Action
levothyroxine 175 mcg Tablet
175 mcg PO DAILY
gabapentin 600 mg Tablet
600 mg PO TID
mycophenolate mofetil 250 mg Capsule
750 mg PO BID
enalapril maleate 20 mg Tablet
20 mg PO BID
therapeutic multivitamin Tablet
1 tab PO DAILY
gemfibrozil 600 mg Tablet
600 mg PO BID
tacrolimus 0.5 mg Capsule
1 mg PO HS
tacrolimus 0.5 mg Capsule
1.5 mg PO DAILY
rosuvastatin 20 mg Tablet
20 mg PO HS
dapagliflozin propanediol [Farxiga] 10 mg Tablet
10 mg PO DAILY
metoprolol tartrate 100 mg tablet
100 mg PO BID
Eliquis 5 mg Tablet
5 mg PO BID
Trelegy Ellipta 100-62.5-25 mcg Blister With Device
1 inh INHALATION R DAILY
magnesium oxide 400 mg magnesium Tablet
600 mg PO DAILY
calcium carbonate [Oyster Shell 600] 600 mg calcium (1,500 mg) Tablet
600 mg PO DAILY
insulin glargine [Basaglar KwikPen U-100 Insulin] 100 unit/mL (3 mL) Insulin Pen
35 unit SC BID
Referrals:
Juan Jose Spear MD [Family Provider] - Call in 1-3 days for appt
Interventions
Interventions:
*Risk Screen - Suicide Last Done: 07/11/24 02:07
*General Assessment Last Done: 07/11/24 02:07
*Neglect/Abuse Screening Last Done: 07/11/24 02:07
ED- Fall Risk Assessment Last Done: 07/11/24 02:28
*ED COVID-19 Vaccine History Last Done: 07/11/24 02:07
BM-[id number] Assessment Last Done: 07/11/24 02:36
Discharge Date and Time
Print Language: [place]
[2024-07-11] MEDS: NSS 1000 IV (04:49)
[2024-07-11] MEDS: BENADRYL 50 MG IV (04:50)
[2024-07-11] MEDS: SOLU-CORTEF 200 MG IV (04:50)
[2024-07-11 07:40] LABS: Lactic Acid 1.1 mmol/L (0.7-2.0)
[2024-07-11 07:50] LABS: Urine Albumin 1+ (Neg - Trace); Urine Bilirubin Negative (Negative); Urine Character Clear (Clear); Urine Color Yellow; Urine Glucose 3+ (Negative); Urine Ketone Negative (Negative); Urine Leukocyte Negative (Negative); Urine Nitrite Negative (Negative); Urine Occult Blood Negative (Negative); Urine Urobilinogen Negative (Neg - 1+)
[2024-07-11 08:07] LABS: Urine Urothelial Cell 0-2 /LPF (FEW)
[2024-07-11 08:09] LABS: Urine Granular Cast 0-2 /LPF (0); Urine Hyaline Cast 0-2 /LPF (0-2); Urine Red Blood Cell 0-2 /HPF (0-2)
== END 2024-07-11 08:37 | disposition home or self-care (01) ==
LOC: EMR 02:05
PROVIDERS: EMERGENCY PHYSICIAN Emergency Medicine; FAMILY PHYSICIAN Internal Medicine
DX: K52.9 Noninfective gastroenteritis and colitis, unspecified (principal); E03.9 Hypothyroidism, unspecified; J44.9 Chronic obstructive pulmonary disease, unspecified; I48.91 Unspecified atrial fibrillation; E11.22 Type 2 diabetes mellitus with diabetic chronic kidney disease; I13.0 Hypertensive heart and chronic kidney disease with heart failure and stage 1 through stage 4 chronic kidney disease, or unspecified chronic kidney disease; I50.9 Heart failure, unspecified; N18.9 Chronic kidney disease, unspecified; E78.00 Pure hypercholesterolemia, unspecified; Z79.01 Long term (current) use of anticoagulants; Z79.4 Long term (current) use of insulin; Z99.81 Dependence on supplemental oxygen; Z94.1 Heart transplant status
CPT/HCPCS: 96374; 96375; 96361; 99284; 74174; 80053; 81003; 81015; 83605; 83690; 85025; Q9967

== ENCOUNTER 2024-07-13 12:58 | Inpatient (IN) | payer MEDICARE, BC, SELFPAY ==
[2024-07-13] VITALS (44 sets, daily range): BP systolic 74–207; BP diastolic 54–170; BMI 21.2
[2024-07-13] MEDS: MAXIPIME 2000 MG IV (10:26)
--- NOTE | 2024-07-13 10:29 | ED.GENMED ---
History of Present Illness
General
Chief Complaint: Breathing Problem
Source: patient and family
Time Seen by Provider: 07/13/24 09:56
History of Present Illness
History of Present Illness:
83-year-old male presents with change in mental status this morning. Ongoing abdominal pain. No shortness of breath fever or other complaints. Patient hypotensive prehospital. Was seen 2 days ago for abdominal pain. Workup at that time was
stable. Some inflammatory changes in the bowel. Normal lactic acid at that time.
Past History
Past History
ED Past Medical History: Arrthythmia, Cancer, CHF, HTN, Hypercholesterolemia, IDDM and Other (Heart transplant)
ED Past Surgical History: Other (Heart transplant)
Social History
Tobacco: Non-smoker
Alcohol: None
Drug: None
Personal:
Living: with family
Employment: Retired
Family History
Family History: Other ( sick with similar symptoms)
Review of Systems
Review of Systems
All Other Systems: Not applicable
Constitutional: Denies fever
Respiratory: Denies trouble breathing
Cardiac: Denies chest pain or syncope
ABD/GI: Reports abdominal pain; Denies bloody stools or black stools
Phy Exam
Physical Exam
Physical Exam:
GENERAL: Alert and oriented in no apparent distress. Hypotensive
EYE: Orbits normal.
NECK: Supple, no significant adenopathy.
ENT: Pharynx without erythema
CARDIAC: Tachycardic and regular no murmur
LUNGS: No severe respiratory distress however hypoxic on 8 L. Distant breath sounds diffusely. Dry rales in the bases
ABDOMEN: No distention. Bowel sounds present. Mild tenderness diffusely. Nonlocalizing. No rebound or guarding. No mass or hernia
NEUROLOGICAL: Alert and oriented , grossly non-focal
SKIN: Warm and dry, no rash or lesion, no discoloration, skin intact.
MUSCULOSKELETAL: No edema,no deformity.Good color
PSYCH: Normal and appropriate interaction.
Scores
Heart Failure Risk
Heart Failure Risk Score: Not Applicable
Sepsis
Sepsis Screening
Sepsis Assessment: Septic Shock
Sepsis Screening: Lactate >/=4mmol/L and Hypotension
Sepsis Screen
Sepsis Screen: Septic Shock
Date: 07/15/24
Time: 09:53
Course
Orders/Labs/Results
Orders:
Orders
07/13/24 09:54
Cr Chest Portable [CR Chest Portable - 1 View] Urgent
Comment:
Reason For Exam: SOB, hypoxic
Reason Study Needs to be Portable: Patient Unstable
07/13/24 09:56
Urinalysis Reflex To Culture Urgent
Date Specimen was Collected: 07/14/24
Time Specimen was Collected: 02:11
O2 Therapy [RESP] Stat
Titrate/Wean O2 to maintain O2 sat greater than (%): 88
07/13/24 09:57
Electrocardiogram (*1) Stat
Reason for Study: Abdominal Pain
07/13/24 10:04
Basic Metabolic Panel Urgent
Complete Blood Count/With Diff Urgent
Lactic Acid Urgent
Lipase Urgent
Blood Culture Q30M
YAMILE Source: Blood/Venous
Specimen Description:
Blood Culture Q30M
YAMILE Source: Blood/Venous
Specimen Description:
07/13/24 10:17
Cefepime HCl [Maxipime] 2,000 mg IV NOW STA
07/13/24 10:41
0.9% Sodium Chloride 1000 ml [Nss] 1,000 ml IV BOLUS
MetroNIDAZOLE 500 MG/100 ML [Flagyl 500 mg] 100 ml IV NOW
07/13/24 10:43
NORepinephrine 4 MG/250 ML [Levophed] 4 mg in 250 ml IV NOW
Initial dose in mcg/min, then titrate:: 2
Titrate to keep:: MAP > 65 mmHg
Titrate by mcg/min:: 1-2 mcg/min
Frequency of titrations (minutes):: 5
Maximum dose in ICU in mcg/min:: 30
Maximum dose in IMU in mcg/min:: 8
Maximum dose in IVU in mcg/min:: 4
Begin to taper infusion when:: Remained at goal for 4hrs
Taper by mcg/min:: 1-2 mcg/min
Frequency of taper (minutes) if patient maintains goal:: 30
Taper to off?: Yes
If infusion off & no longer maintaining goal:: Contact Provider
07/13/24 10:48
ABG [Arterial Blood Gas] Urgent
%Oxygen/Room Air: 8l
07/13/24 10:51
NT-proBNP Routine
Troponin I Routine
07/13/24 11:08
Echo 2D MMode Color/Doppler Urgent
Reason for Study: Shortness of breath
07/13/24 11:42
Add On- LAB Urgent
Tests Added?: Procalcitonin
07/13/24 11:50
CT Abd/pelvis Angio W/wo Iv Stat
Comment:
Reason For Exam: Sepsis/evaluate for ischemic bowel
Potassium Urgent
Procalcitonin Urgent
07/13/24 12:05
Diphenhydramine [Benadryl] 50 mg IV NOW STA
Hydrocortisone Sod Succinate [Solu-Cortef] 200 mg IV NOW STA
07/13/24 12:25
Hydrocortisone Sod Succinate [Solu-Cortef] 100 mg .ROUTE .STK-MED ONE
07/13/24 12:44
Admit/Transfer Patient As Directed
Co-Sign Provider:
Level of Care: Inpatient admission
Assign to:: ICU
Physician / Group: jag
Diagnosis: septic shock
Reason for Hospitalization: septic shock
Expected length of stay greater than two midnights?: Yes
ELOS- Estimated Length of Stay in days: 2
I certify the patient meets the requirements for IP care: Yes
Code Status As Directed
Resuscitation Status: Full Code
PRN Pain Medication Management As Directed
May give lesser potent ordered pain med per pt: Yes
preference::
Protocol:: Medication orders for pain may be administered in a
manner that supports deferring to patient preference
when the pt is:
- Requesting an ordered lesser potent pain medication.
Least to most potent pain medications are defined
as: acetaminophen < NSAID < tramadol < opioids
(morphine, oxycodone, hydromorphone).
- Requesting a lesser dose of the same medication IF
ORDERED.
- Requesting a less intrusive route of administration
if both routes are prescribed by the provider (PO <
IV).
07/13/24 Dinner
NPO
Allow oral meds: Yes
Allow clear liquids: Sips of Clears
07/13/24 15:54
Lactate Level [Lactic Acid] Urgent
07/13/24 17:20
0.9% Sodium Chloride 1000 ml [Nss] 1,000 ml IV 100 mls/hr
Heparin 74608 Units/250 ml 25,000 units in 250 ml IV PER PROTOCOL
Weight to be used for heparin protocol in kilograms (kg):: 65
Protocol:: DVT/PE
PTT Goal Range to be used:: PTT 73 to 111 seconds
Order type:: Initial
INITIAL Infusion Dose (UNITS/KG/hr) & then follow protocol:: 18 units/kg/hr
Infusion Dose in UNITS/hr & then follow protocol (UNITS/hr):: 1,200
INFUSION RATE in mL/hr & then follow protocol (mL/hr):: 12
For DVT/PE algorithm, re-bolus for low PTT?: No
PTT less than or equal to 64 seconds:: No Re-bolus. Increase by 300 units/hr (+ 3mL/hr)
PTT 64.1 to 72.9 seconds:: No Re-bolus. Increase by 100 units/hr (+ 1mL/hr)
PTT 73 to 111 seconds:: Target Range. No change in rate.
PTT 111.1 to 130.9 seconds:: Decrease rate by 100 units/hr (- 1 mL/hr)
PTT 131 to 199.9 seconds:: HOLD for 1 hr. Then decrease by 200 units/hr (- 2mL/hr)
PTT greater than or equal to 200 seconds:: HOLD for 2 hrs & Notify Provider. Then decrease by 300 units/hr
(- 3mL/hr)
Lab follow-up:: Each change, PTT q6h until 2 consecutive are therapeutic. Then
PTT daily.
07/13/24 17:20
GASTROINTESTINAL CONSULT Routine
Consulting Provider: Kamran Slater
Was physician already notified: Yes
VTE Contraindication Routine
VTE Mechanical Device Contraindication: Medical Contraindication
Pharmocologic Contraindication: Medical Contraindication
Heparin Protocol- PTT Orders As Directed
PTT per Heparin protocol: -Obtain CBC and baseline PTT - if not already collected.
-Obtain PTT 6 hours from start of infusion. Then, every 6 hours until 2 consecutive
PTT's are therapeutic. Then, PTT Daily.
-With each rate change, obtain PTT every 6 hours until 2 consecutive PTT's are
therapeutic. Then, PTT Daily.
Activity As Directed
Activity Level: As Tolerated
Notify MD As Directed
Notify physician if: PTT is greater than or equal to 200.
Vital Signs As Directed
Frequency: Per unit guidelines
07/13/24 17:30
Gabapentin [Neurontin] 600 mg PO TID
07/13/24 17:40
Complete Blood Count/No Diff Urgent
Comment: Obtain baseline before beginning heparin infusion if not already collected
Lactate Level [Lactic Acid] Q6H
07/13/24 18:00
Piperacillin/Tazo 3.375 Gram [Zosyn] 3.375 gram in 50 ml IV Q6H
07/13/24 20:00
Gemfibrozil [Lopid] 600 mg PO BID
Mycophenolate [Cellcept] 750 mg PO BID
07/13/24 22:00
Rosuvastatin Calcium [Crestor] 20 mg PO HS
Tacrolimus [Prograf] 1 mg PO HS
07/14/24 04:50
Complete Blood Count/With Diff IN AM
07/14/24 06:00
Levothyroxine [Synthroid] 175 mcg PO DAILY@0600
07/14/24 08:00
Tacrolimus [Prograf] 1.5 mg PO DAILY
07/17/24 06:00
Complete Blood Count/No Diff Q2D
Comment: Notify MD if platelet count is <130,000 or decreases by 50% from baseline
07/19/24 06:00
Complete Blood Count/No Diff Q2D
Comment: Notify MD if platelet count is <130,000 or decreases by 50% from baseline
07/21/24 06:00
Complete Blood Count/No Diff Q2D
Comment: Notify MD if platelet count is <130,000 or decreases by 50% from baseline
07/23/24 06:00
Complete Blood Count/No Diff Q2D
Comment: Notify MD if platelet count is <130,000 or decreases by 50% from baseline
07/25/24 06:00
Complete Blood Count/No Diff Q2D
Comment: Notify MD if platelet count is <130,000 or decreases by 50% from baseline
07/27/24 06:00
Complete Blood Count/No Diff Q2D
Comment: Notify MD if platelet count is <130,000 or decreases by 50% from baseline
07/29/24 06:00
Complete Blood Count/No Diff Q2D
Comment: Notify MD if platelet count is <130,000 or decreases by 50% from baseline
Abnormal Lab Results
07/13/24 07/13/24 07/13/24
10:04 10:48 11:50
WBC 15.8 H 10^3/uL
(4.8-10.8)
MCHC 31.5 L g/dL
(33.0-37.0)
RDW 14.6 H %
(11.5-14.5)
MPV 12.6 H fL
(7.4-10.4)
Abs Immat Gran (auto) 0.1 H 10^3/uL
(0-0.05)
Absolute Neuts (auto) 12.1 H 10^3/uL
(1.4-6.5)
Absolute Monos (auto) 1.8 H 10^3/uL
(0.1-0.6)
Neutrophils % 76.4 H %
(42.2-75.2)
Lymphocytes % 11.3 L %
(20.5-51.1)
Monocytes % 11.6 H %
(1.7-9.3)
pH 7.34 L
(7.35-7.45)
pO2 59 L* mmHg
(83-108)
ABG O2 Sat (Measured) 90.6 L %
(94-98)
Carbon Dioxide 19 L mmol/L
(22-30)
BUN 49 H mg/dl
(9-20)
Glucose 245 H mg/dl
(70-99)
Lactic Acid 4.5 H* mmol/L
(0.7-2.0)
Procalcitonin 0.71 H ng/ml
(0.0-0.25)
07/13/24 10:04
07/13/24 11:50
Vital Signs
Initial and Last Documented VS:
Initial Vital Signs
Temp Pulse Resp BP Pulse Ox
97.1 F 123 22 97/67 84
07/13/24 09:55 07/13/24 09:55 07/13/24 09:55 07/13/24 09:55 07/13/24 09:55
Last Documented Vital Signs
Temp Pulse Resp BP Pulse Ox
97.5 F 128 17 94/59 92
07/15/24 07:54 07/15/24 08:30 07/15/24 08:30 07/15/24 08:30 07/15/24 08:31
MDM/Problems Addressed
Differential Diagnosis Includes:
Complicated medical decision making. Elevated lactic acid, hypotensive, tachycardic, ongoing abdominal symptoms. Consider bowel ischemia, pneumonitis, CHF component. Workup in progress. Careful fluids. Antibiotics. Discussed with GI,
hospitalist, vascular surgery. Will reprep for CT scan. Has been rechecked multiple multiple times. Family updated. Has remained relatively stable so far. Blood pressure improved some. Heart rate improved. Pulse ox improved. Appears
surprisingly well given his vital signs.
*Radiology
Radiology exam reviewed: preliminary read by ED provider (Possible pneumonitis versus CHF) and radiology read reviewed (Pneumonitis versus CHF)
*Pulse Oximetry
Patient hypoxic: yes
*EKG
Interpreted by ED Provider?: Yes
Interpretation: abnormal
Comparison EKG: changes noted
Heart Rate: 116
Rate: tachycardiac
Rhythm: sinus
[place]: normal axis
Interval: normal interval
QRS Pattern: normal QRS
Ischemia: no ischemia
*Precision Lens Technician Interpretation
Rate: tachycardiac
Interpretation: abnormal
Heart Rate: 115
Rhythm: sinus
*Critical Care Note
Total Time (30-74mins, 75-104mins- exclusive of procedures): 45
Data Reviewed
Review of Other/Old Records Reveals: Labs, Records and Testing
Update Note
Update Note:
1028.... Family updated. Critically ill. Etiology at this time is somewhat uncertain. Pneumonitis versus CHF on x-ray. Remains hypotensive. Careful fluids. Workup in progress. Also contacted cardiology for their input. Antibiotics for
pneumonitis.
ED Attending Note
-
Portions of this chart may have been created with voice recognition software.� Occasional wrong word or��sound alike� substitutions may have occurred due to the inherent limitations of voice recognition software.
Discharge Plan
Departure
Patient Disposition: Admit
Date of Disposition: 07/13/24
Time of Disposition: 12:06
Presentation/result/management discussed w/ accepting MD/DO: Cardiology/GI/vascular
Discharge Problem:
Septic shock, Likely secondary to GI source, Possible ischemic bowel, Possible CHF, Renal insufficiency, Known AAA, Known heart transplant
Interventions
Interventions:
*General Assessment Last Done: 07/13/24 09:57
*Neglect/Abuse Screening Last Done: 07/13/24 09:57
ED- Fall Risk Assessment Last Done: 07/13/24 10:18
*Nursing Disposition Last Done: 07/13/24 17:09
ED- Cardiac Assessment Last Done: 07/13/24 10:18
ED- Pulmonary Assessment Last Done: 07/13/24 10:18
Discharge Date and Time
Discharge Date/Time: 07/13/24 17:09
[2024-07-13 10:34] LABS: % Basophils 0.3 % (0-2); % Immature Granulocytes 0.4 % (0-0.5); % Lymphocytes 11.3 % (20.5-51.1); % Monocytes 11.6 % (1.7-9.3); % Neutrophils 76.4 % (42.2-75.2); Absolute Immature Granulocytes 0.1 10^3/uL (0-0.05); Absolute Lymphocytes 1.8 10^3/uL (1.2-3.4); Absolute Monocytes 1.8 10^3/uL (0.1-0.6); Absolute Neutrophils 12.1 10^3/uL (1.4-6.5); Hematocrit 50.4 % (39.0-52.0); Hemoglobin 15.9 g/dL (13.0-18.0); Mean Corp Hgb Conc. 31.5 g/dL (33.0-37.0); Mean Corpuscular Hgb 28.9 pg (27.0-31.0); Mean Corpuscular Volume 91.5 fL (80.0-94.0); Mean Platelet Volume 12.6 fL (7.4-10.4); Nucleated Red Blood Cells % 0 % (-); Platelet Count 191 10^3/uL (130-400); Red Blood Cell Count 5.51 10^6/uL (4.70-6.10); Red Cell Dist. Width 14.6 % (11.5-14.5); White Blood Cell Count 15.8 10^3/uL (4.8-10.8)
[2024-07-13 10:40] LABS: Lactic Acid 4.5 mmol/L (0.7-2.0)
[2024-07-13] MEDS: FLAGYL 500 MG 100 IV (10:53)
[2024-07-13] MEDS: NSS 1000 IV ×2 (10:54→17:44)
[2024-07-13 10:55] LABS: B.E. -4.4 mmol/L; O2 Saturation % 90.6 % (94-98); PCO2 39 mmHg (35-48); pH 7.34 (7.35-7.45)
[2024-07-13 10:59] LABS: PO2 59 mmHg (83-108)
--- NOTE | 2024-07-13 11:10 | CON.CAR ---
Consultation
Consultation Request
Date/Time Consultation Requested: 07/13/2024 10:30
Date/Time Consultation Performed: 07/13/2024 10:50
Requesting Provider: Dr. Chino
Performing Provider: RADHA Lebron for Dr. Helm
Reason for Consultation: Hypotension, hypoxia
Medical History
-
Chief Complaint: Fever
History of Present Illness:
Lloyd Shearer is an 83-year-old male (known to Dr. 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
surveillance, COPD, RLL SCC status post XRT, hypertension, type 2 diabetes mellitus, chronic kidney disease, prior PE on lifetime anticoagulation, and dyslipidemia, who presented to the emergency department yesterday with complaints of abdominal
pain. He endorsed associated shortness of breath. He arrived via EMS. He was seen in the emergency department 07/11/2024 with a chief complaint of abdominal pain. He reported it was diffuse. It did improve with acetaminophen. He had a CT scan
that showed his AAA was stable. Imaging consistent with severe acute enteritis/ileus likely of infectious/inflammatory etiology. His urinalysis was unremarkable. His lactic acid was within normal limits. He was discharged home. He feels like
his abdominal discomfort is worse. It is tender to palpation. His last bowel movement was Friday. He has been having intermittent nausea without vomiting. He has been taking all of his medications as directed and denies missed doses including
tacrolimus and apixaban. On exam, he is tachycardic, hypotensive, and hypoxic. His daughter is at the bedside. She is aware that he is critically ill.
Past Medical History
Past Medical History: Cancer (SCC lung s/p XRT), CHF (S/P transplant 2001), COPD, HTN, NIDDM, Renal Failure (CKD) and Other (Severe pulmonary hypertension, prior PE on lifetime anticoagulation, AAA status post EVAR)
Past Surgical History: Cardiac (Heart transplant [2001])
Social History
Tobacco: Former Smoker
Alcohol: None
Drug: None
Personal:
Living: With Family
Employment: Retired
Family History
Family History: Reviewed & Not Pertinent
Allergies / Home Medications
Allergy/AdvReac Type Severity Reaction Status Date / Time
bee venom protein (honey bee) Allergy hives and Verified 07/11/24 02:14
throat
tightness
Iodinated Contrast Media Allergy Hives Verified 07/11/24 02:14
�Medication �Instructions �Recorded �Confirmed �Type
dapagliflozin propanediol 10 mg 10 mg PO DAILY Diabetes 12/25/21 07/11/24 History
tablet (Farxiga)
enalapril maleate 20 mg tablet 20 mg PO BID Blood pressure 12/25/21 07/11/24 History
gabapentin 600 mg tablet 600 mg PO TID Pain 12/25/21 07/11/24 History
gemfibrozil 600 mg tablet 600 mg PO BID High cholesterol 12/25/21 07/11/24 History
levothyroxine 175 mcg tablet 175 mcg PO DAILY Thyroid 12/25/21 07/11/24 History
mycophenolate mofetil 250 mg 750 mg PO BID Transplant 12/25/21 07/11/24 History
capsule
rosuvastatin 20 mg tablet 20 mg PO HS High cholesterol 12/25/21 07/11/24 History
tacrolimus 0.5 mg capsule, 1 mg PO HS Transplant 12/25/21 07/11/24 History
immediate-release
tacrolimus 0.5 mg capsule, 1.5 mg PO DAILY Transplant 12/25/21 07/11/24 History
immediate-release
therapeutic multivitamin 1 tab PO DAILY Supplement 12/25/21 07/11/24 History
metoprolol tartrate 100 mg tablet 100 mg PO BID Blood Pressure 09/19/22 07/11/24 History
apixaban 5 mg tablet (Eliquis) 5 mg PO BID Blood Clot 04/12/24 07/11/24 History
Prevention/Tx
fluticasone fur. 100 mcg-umeclid 1 inh inhalation R DAILY 04/12/24 07/11/24 History
62.5 mcg-vilant 25 mcg Lung/Breathing Issues
inhalat.powder (Trelegy Ellipta)
magnesium oxide 600 mg PO DAILY Supplement 04/12/24 07/11/24 History
calcium carbonate 600 mg PO DAILY 07/11/24 07/11/24 History
insulin glargine 100 unit/mL (3 35 unit SC BID 07/11/24 07/11/24 History
mL) subcutaneous pen (Basaglar
KwikPen U-100 Insulin)
Review of Systems
-
History Source: Patient
All other systems: Negative unless noted
Constitutional: Fatigue
EENT: No Symptoms
Respiratory: Trouble Breathing
Cardiac: No Symptoms
Abdomen/GI: Abdominal Pain and Nausea
: No Symptoms
Musculoskeletal: No Symptoms
Skin: No Symptoms
Neurological: Weakness
Endocrine: No Symptoms
Hematologic/Lymphatic: No Symptoms
Physical Exam
Vital Signs
Temp Pulse Resp BP Pulse Ox
97.1 F 119 18 86/61 86
07/13/24 09:55 07/13/24 10:15 07/13/24 10:15 07/13/24 10:15 07/13/24 10:18
Lab Results
07/13/24 10:04
Troponin I Cancelled 07/13/24 10:04
[id number]-[id number] Pept Cancelled 07/13/24 10:04
Physical Exam
General: Well Developed and Respiratory Distress (mild)
HEENT: Normocephalic, Anicteric and Moist Mucous Membranes
Respiratory: Crackles and Non Labored Respirations
Cardiac: S1/S2 and Regular Rhythm; Negative Peripheral Edema
Breast: Deferred by me
GI: Non Distended and Tender
Rectal: Deferred by Provider
Genito-urinary: No Costovertebral Tender
Musculoskeletal: No Cyanosis
Skin: Warm and Dry
Neuro: AO x 3
Hematologic/Lymphatic: No Lymphadenopathy
Psych: Calm
Impression / Plan
-
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
type 2 diabetes mellitus, chronic kidney disease, prior PE on lifetime anticoagulation, and dyslipidemia c/o abdominal pain.
Primary sales operations manager: Dr. Helm
Sepsis in an immunocompromise host
-Hypotension, tachycardia, leukocytosis and lactic acidosis
-Repeat lactate in 4 hours, procalcitonin added to labs
-Cultures are pending
-CXR appears to be pneumonitis
-His normal troponin is reassuring against cardiogenic shock
Abdominal pain
-CT 07/11/2024 with severe acute enteritis/ileus
-Consider GI consult
Chronic hypoxemic respiratory failure, in the setting of COPD, on 8 L nasal cannula at baseline
End-stage ischemic cardiomyopathy status post LVAD then OHT ([facility], 2001)
-Potassium reordered, unable to result by lab due to hemolysis
-Update echocardiogram
-Continue antirejection medications
Pulmonary hypertension, severe
-WHO group 3?
-Last PASP 72 mmHg, update TTE
-RV dilated with normal function
AAA s/p EVAR complicated by endoleak
-CT 07/11/2024 showed no acute changes with suspected persistent type II endoleak
Hypotension, in the setting of sepsis, hold all agents for now - his tachycardia is a result of sepsis
CKD, follow, may worsen with hypotension
COPD, severe, follows with Dr. Cm in the outpatient setting
Prior PEs, on lifelong anticoagulation
Type 2 diabetes mellitus, per primary
Squamous cell carcinoma stage IIIa, right lower lobe, s/p XRT, PET avid, following with Drs. Craig & Consuelo
[2024-07-13 11:28] LABS: NT-proBNP 3250 pg/ml; Troponin I < 0.012 ng/ml
[2024-07-13 11:37] LABS: Blood Urea Nitrogen 49 mg/dl (9-20); Calcium 8.9 mg/dl (8.4-10.2); Carbon Dioxide 19 mmol/L (22-30); Chloride 101 mmol/L (98-107); Estimated Creatinine Clearance 40 ml/min; Glucose 245 mg/dl (70-99); Lipase 179 U/L (23-300); Sodium 138 mmol/L (135-145); eGFR 54.85
[2024-07-13 12:21] LABS: Potassium 4.7 mmol/L (3.5-5.1)
[2024-07-13] MEDS: BENADRYL 50 MG IV (12:30)
[2024-07-13] MEDS: SOLU-CORTEF 200 MG IV (12:30)
[2024-07-13 12:38] LABS: Procalcitonin 0.71 ng/ml (0.0-0.25)
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
--- NOTE | 2024-07-13 12:52 | HPS.HSE ---
Family Physician
-
Family Physician: Milan Spear
Chief Complaint
-
abdominal pain
History of Present Illness
83-year-old male past medical history of ischemic cardiomyopathy status post heart transplant in 2001, CAD, pulmonary embolism on Eliquis, severe pulm hypertension, abdominal aortic aneurysm status post EVAR complicated by endoleak, squamous cell
lung cancer stage III, COPD, hypothyroidism, type 2 diabetes, presented to the emergency room for diffuse abdominal pain starting 2 days ago and some vomiting today. Came to the emergency room and had CAT scan of the abdomen pelvis showing
enteritis/ileitis and discharge.
No diarrhea. No fevers or chills. No chest pain shortness of breath is worse than usual. No cough. No lower extremity edema.
Denies smoking alcohol use.
Medical History
Past Medical History
Past Medical History: Reports Other (ischemic cardiomyopathy status post heart transplant in 2001, CAD, pulmonary embolism on Eliquis, severe pulm hypertension, abdominal aortic aneurysm status post EVAR complicated by endoleak, squamous cell lung
cancer stage III, COPD, hypothyroidism, type 2 diabetes)
Past Surgical History: Reports Other ((Heart transplant))
Social History
Tobacco: Non-smoker
Alcohol: None
Drug: None
Family History
Family History: Not pertinent
Allergies / Home Medications
Allergies reflects when Allergies were last updated in [employer].
Home Medications with original date entered in [employer]
Allergy/Medication List:
Allergies
Allergy/AdvReac Type Severity Reaction Status Date / Time
bee venom protein (honey bee) Allergy hives and Verified 07/11/24 02:14
throat
tightness
Iodinated Contrast Media Allergy Hives Verified 07/11/24 02:14
Home Medications
dapagliflozin propanediol 10 mg tablet (Farxiga) 10 mg PO DAILY Diabetes 12/25/21
enalapril maleate 20 mg tablet 20 mg PO BID Blood pressure 12/25/21
gabapentin 600 mg tablet 600 mg PO TID Pain 12/25/21
gemfibrozil 600 mg tablet 600 mg PO BID High cholesterol 12/25/21
levothyroxine 175 mcg tablet 175 mcg PO DAILY Thyroid 12/25/21
mycophenolate mofetil 250 mg capsule 750 mg PO BID Transplant 12/25/21
rosuvastatin 20 mg tablet 20 mg PO HS High cholesterol 12/25/21
tacrolimus 0.5 mg capsule, immediate-release 1 mg PO HS Transplant 12/25/21
tacrolimus 0.5 mg capsule, immediate-release 1.5 mg PO DAILY Transplant 12/25/21
therapeutic multivitamin 1 tab PO DAILY Supplement 12/25/21
metoprolol tartrate 100 mg tablet 100 mg PO BID Blood Pressure 09/19/22
apixaban 5 mg tablet (Eliquis) 5 mg PO BID Blood Clot Prevention/Tx 04/12/24
fluticasone fur. 100 mcg-umeclid 62.5 mcg-vilant 25 mcg inhalat.powder (Trelegy Ellipta) 1 inh inhalation R DAILY Lung/Breathing Issues 04/12/24
magnesium oxide 600 mg PO DAILY Supplement 04/12/24
calcium carbonate 600 mg PO DAILY 07/11/24
insulin glargine 100 unit/mL (3 mL) subcutaneous pen (Basaglar KwikPen U-100 Insulin) 36 unit SC BID 07/11/24
Review of Systems
-
History Source: Patient
A 12 point ROS was completed and negative except as noted: Yes
Constitutional: Reports No Symptoms
EENT: Reports No Symptoms
Respiratory: Reports No Symptoms
Cardiac: Reports No Symptoms
Abdomen/GI: Reports See HPI
: Reports No Symptoms
Musculoskeletal: Reports No Symptoms
Skin: Reports No Symptoms
Neurological: Reports No Symptoms
Endocrine: Reports No Symptoms
Hematologic/Lymphatic: Reports No Symptoms
Psych: Reports No Symptoms
Physical Exam
Vital Signs
Vital Signs
Temp Pulse Resp BP Pulse Ox
97.1 F 115 16 94/64 85
07/13/24 09:55 07/13/24 11:15 07/13/24 11:15 07/13/24 11:15 07/13/24 11:15
Physical Exam
General: Well Developed, Well Nourished and No Apparent Distress
HEENT: NormoCephalic, Moist mucous membranes and Atraumatic
Respiratory: Clear
Cardiac: S1/S2 and Regular Rhythm; No Murmur or Rub
GI: Soft, Non Distended, Normal Bowel Sounds and Tender (diffusely ); No Organomegaly
Rectal: Deferred by Provider
Musculoskeletal: No Clubbing, No Cyanosis and No Edema
Skin: No Rash
Neuro: Nonfocal/grossly intact
Laboratory Results
-
07/13/24 10:04
07/13/24 11:50
Laboratory Results
pH 7.34 (7.35-7.45) L 07/13/24 10:48
pCO2 39 mmHg (35-48) 07/13/24 10:48
pO2 59 mmHg (83-108) L* 07/13/24 10:48
HCO3 21.0 mmol/L (21-28) 07/13/24 10:48
Lactic Acid 4.5 mmol/L (0.7-2.0) H* 07/13/24 10:04
Total Bilirubin Cancelled 07/13/24 10:04
AST Cancelled 07/13/24 10:04
ALT Cancelled 07/13/24 10:04
Alkaline Phosphatase Cancelled 07/13/24 10:04
Troponin I < 0.012 ng/ml 07/13/24 10:51
Lipase 179 U/L (23-300) 07/13/24 10:04
Data Reviewed
-
Lab Data: Labs Reviewed by me
Old Records: Reviewed
Impression/Plan
-
IMPRESSION:
PLAN:
# Sepsis (leukocytosis, tachycardia, hypotension) secondary to acute enteritis/ileitis infectious versus ischemic bowel + Pneuminitis
-CT scan from 2 days ago shows excluded infrarenal fusiform aneurysm sac up to 6.3 x 6.3 cm, suspected persistent type II endoleak without acute changes, severe acute enteritis/ileitis
-Lactic acid 4.5
-N.p.o.
-Blood cultures
-Received 1 L of IV fluids, currently off of Levophed
-IV fluids
-Zosyn
-CT abdomen pelvis angio with and without contrast pending
-X-ray showing mild CHF and pneumonitis
-GI consulted
Abdominal aortic aneurysm status post EVAR complicated by endoleak
-CT scan from 07/11 shows no acute changes with suspected persistent type II endoleak
-Repeat CAT scan pending
-Patient follows with Dr. Victoria
Chronic hypoxemic respiratory failure on 8 L oxygen baseline secondary to COPD
Chronic COPD
-Continue Trelegy
End-stage cardiomyopathy status post LVAD then heart transplant 2001 at [facility]
-Echo pending
-Not clinically in heart failure
-Cardiology consulted
-Continue mycophenolate, tacrolimus
-Hold enalapril
-Hold metoprolol
Severe pulmonary hypertension
History of prior pulmonary embolism on Eliquis
-Switch Eliquis to heparin drip in anticipation of possible procedures during hospitalization
Squamous cell lung cancer stage III of right lower lobe status post radiation,
Hypothyroidism
Type 2 diabetes
-Hold dapagliflozin
-Reduce Lantus from 36 units twice daily to 18 units twice daily
-Insulin sliding scale
Neuropathy
-Continue gabapentin
Hyperlipidemia
-Continue gemfibrozil, statin
Full code
DVT prophylaxis�heparin drip
N.p.o.
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
[2024-07-13 16:16] LABS: Lactic Acid 2.5 mmol/L (0.7-2.0)
--- NOTE | 2024-07-13 16:18 | CON.VAS ---
Addendum entered and electronically signed by Rahul Victoria III, MD 07/13/24 17:41:
This patient was seen and examined with RADHA Ortez. I agree with the history and physical exam as well as the assessment and plan. I have the following additions:
Patient well-known to me
Endovascular aortic aneurysm repair in 2021. Known type II from lumbar branch
Heart transplant, COPD, lung cancer
Patient is on chronic anticoagulation
Acute onset abdominal pain 07/10/2024 at 9 PM
No precipitating factors
He presented to the ED here at on the and was subsequently discharged
Persistent abd pain
Diffuse
Several episodes of vomiting (brown/bilious)
Last BM Friday (normally goes every day regularly)
On exam he is chronically ill appearing
Tachycardic
On 10 L via NC with O2 sats in the low/mid 80s
Family at bedside
Abd diffusely tender but no peritoneal signs. Aneurysm is not tender
I personally reviewed the CTAs from 07/11 and today
Celiac and SMA both widely patent
There is no type Ia or Ib endoleak from the EVAR. Small posterior endoleak likely from type II/lumbar
On centerline reconstruction the excluded sac measures 61 mm in max diameter (image attached). In January 2024 (attached) the aneurysm measured similar diameter.
I do not believe his presentation is related to mesenteric ischemia based on the CT results x 2 showing widely patent celiac and SMA. He is on chronic anticoagulation and therefore a thrombotic vascular etiology for abdominal pain would seem much
less likely. The excluded AAA is stable in size compared to the last scan in January 2024 and the type II endoleak posteriorly is small/stable. No new endoleaks are present.
Would continue to workup other etiologies for abdominal pain as vascular causes seem less likely with the diagnostic workup performed thus far. Consider general surgery consult.
I discussed my impression in detail with patient and family in the ED.
Call with questions/concerns.
Signed:
Rahul Victoria III, MD
[facility]
[phone] (cell)
Original Note:
Consultation
Consultation Request
Performing Provider: Julien
Reason for Consultation: Rule out mesenteric ischemia
Medical History
-
Chief Complaint: Abdominal pain
History of Present Illness:
83-year-old male with past medical history ischemic cardiomyopathy status post heart transplant in 2001, CAD, PE on Eliquis, severe pulmonary hypertension, AAA status post EVAR with endoleak, squamous cell lung cancer stage III, COPD,
hypothyroidism, diabetes type 2. Presents to the ER today with severe abdominal pain since Friday. Patient denies event causing this pain. Reports it started suddenly and has been constant since. Patient was seen in the ER 2 days ago for this
same pain. Patient states when he left the ER he still had the pain but felt moderately better. Returns for pain ongoing. Abdominal pain being worked up by GI and cardiology. Vascular consult to rule out mesenteric ischemia.
Patient seen at bedside this afternoon with Dr. Victoria, family at bedside as well.
Patient appears relatively comfortable. He is on 10 L nasal cannula with pulse ox low 80s. Patient states he is on 8 L nasal cannula at home. He is tachycardic in the 111-119. Slightly hypotensive. Patient states he had 2 bouts of vomiting
bilious fluid.
CTA reviewed at bedside with family and patient.
Impression: Vasculature: Aortobiiliac stent graft redemonstrated. Excluded infrarenal fusiform aneurysm sac measures up to 6.3 cm, stable. Redemonstration of probable type II endoleak with contrast enhancement present within the posterior margin of
the aneurysm sac on arterial and delayed phase sequences, similar to prior. No abdominal aortic dissection. Stable fusiform aneurysmal dilatation of the right common iliac artery measuring up to 2.6 cm. Mild to moderate atherosclerotic changes.
Past Medical History
Past Medical History: Other (See above)
Past Surgical History: Other (Heart transplant 2001)
Social History
Personal:
Living: With Family
Family History
Family History: Reviewed & Not Pertinent
Allergies / Home Medications
Allergy/AdvReac Type Severity Reaction Status Date / Time
bee venom protein (honey bee) Allergy hives and Verified 07/11/24 02:14
throat
tightness
Iodinated Contrast Media Allergy Hives Verified 07/11/24 02:14
�Medication �Instructions �Recorded �Confirmed �Type
dapagliflozin propanediol 10 mg 10 mg PO DAILY Diabetes 12/25/21 07/13/24 History
tablet (Farxiga)
enalapril maleate 20 mg tablet 20 mg PO BID Blood pressure 12/25/21 07/13/24 History
gabapentin 600 mg tablet 600 mg PO TID Pain 12/25/21 07/13/24 History
gemfibrozil 600 mg tablet 600 mg PO BID High cholesterol 12/25/21 07/13/24 History
levothyroxine 175 mcg tablet 175 mcg PO DAILY Thyroid 12/25/21 07/13/24 History
mycophenolate mofetil 250 mg 750 mg PO BID Transplant 12/25/21 07/13/24 History
capsule
rosuvastatin 20 mg tablet 20 mg PO HS High cholesterol 12/25/21 07/13/24 History
tacrolimus 0.5 mg capsule, 1 mg PO HS Transplant 12/25/21 07/13/24 History
immediate-release
tacrolimus 0.5 mg capsule, 1.5 mg PO DAILY Transplant 12/25/21 07/13/24 History
immediate-release
therapeutic multivitamin 1 tab PO DAILY Supplement 12/25/21 07/13/24 History
metoprolol tartrate 100 mg tablet 100 mg PO BID Blood Pressure 09/19/22 07/13/24 History
apixaban 5 mg tablet (Eliquis) 5 mg PO BID Blood Clot 04/12/24 07/13/24 History
Prevention/Tx
fluticasone fur. 100 mcg-umeclid 1 inh inhalation R DAILY 04/12/24 07/13/24 History
62.5 mcg-vilant 25 mcg Lung/Breathing Issues
inhalat.powder (Trelegy Ellipta)
magnesium oxide 600 mg PO DAILY Supplement 04/12/24 07/13/24 History
calcium carbonate 600 mg PO DAILY 07/11/24 07/13/24 History
insulin glargine 100 unit/mL (3 36 unit SC BID 07/11/24 07/13/24 History
mL) subcutaneous pen (Basaglar
KwikPen U-100 Insulin)
Review of Systems
-
History Source: Patient and Family
All other systems: Negative unless noted
Constitutional: Reports Weight Loss
EENT: Reports No Symptoms
Respiratory: Reports Trouble Breathing
Cardiac: Reports No Symptoms
Vascular: Denies Leg Pain / Claudication
Abdomen/GI: Reports Abdominal Pain and Vomiting
Musculoskeletal: Reports No Symptoms
Skin: Reports No Symptoms
Neurological: Reports No Symptoms
Physical Exam
Vital Signs
Temp Pulse Resp BP Pulse Ox
98.0 F 115 24 80/62 89
07/13/24 14:30 07/13/24 15:00 07/13/24 15:00 07/13/24 13:46 07/13/24 15:00
Lab Results
07/13/24 10:04
07/13/24 11:50
Troponin I < 0.012 ng/ml 07/13/24 10:51
Suv-P-Efbqopoesvw Pept 3250 pg/ml 07/13/24 10:51
Physical Exam
General: Other (Shortness of breath at patient's baseline)
HEENT: Normocephalic and Atraumatic
Respiratory: Other (ROBLES, shortness of breath)
Cardiac: Negative JVD
GI: Soft, Non Distended and Tender (Right lower quadrant)
Musculoskeletal: No Clubbing and No Cyanosis
Skin: Warm
Neuro: Awake, Alert and Oriented
Psych: Calm
Assessment / Plan
-
83-year-old male here with severe abdominal pain that began on Friday and has persisted.
No evidence of mesenteric ischemia by CTA, no obvious vascular etiology for abdominal pain
Discussed with vascular attending
Data Reviewed
-
CT Scan: Discussed with Patient
[2024-07-13 17:32] LABS: Glucose - Point of Care 241 mg/dl (70-99)
[2024-07-13] MEDS: ZOSYN 50 IV ×2 (17:56→23:48)
[2024-07-13] MEDS: HEPARIN 25000 UNITS/250 ML IV (18:00)
[2024-07-13 18:01] LABS: Lactic Acid 1.8 mmol/L (0.7-2.0)
[2024-07-13] MEDS: NEURONTIN 600 MG PO ×2 (18:19→21:10)
[2024-07-13 18:20] LABS: APTT 37.9 Sec (23.4-35.0)
[2024-07-13] MEDS: NOVOLOG FLEXPEN-LOW RESISTANCE 2 UNITS SC (18:22)
[2024-07-13] MEDS: VANCOCIN 530 MG IV (18:25)
[2024-07-13 18:39] LABS: Hemoglobin 14.1 g/dL (13.0-18.0); Mean Corpuscular Hgb 28.9 pg (27.0-31.0); Mean Corpuscular Volume 90.2 fL (80.0-94.0); Mean Platelet Volume 12.5 fL (7.4-10.4); Platelet Count 158 10^3/uL (130-400); Red Blood Cell Count 4.88 10^6/uL (4.70-6.10); Red Cell Dist. Width 14.6 % (11.5-14.5); White Blood Cell Count 12.3 10^3/uL (4.8-10.8)
--- NOTE | 2024-07-13 18:45 | PHA.VAN.IN ---
Assessment
- Assessment
Renal Function: Appears similar to baseline
Concomitant Antimicrobials: piperacillin/tazobactam
AUC Dosing Plan
- Dosing Variables
Dosing Weight (kg): 65
Dosing CrCl (ml/min): 40
Vd coefficient (L/kg): 0.7
- Empiric Dosing
Initial / Loading Dose: vanc 1500mg
Maintenance Regimen: vanc 750mg Q24H
Estimated AUC (mcg*h/mL): 447
Estimated Peak (mcg*h/mL): 27.7
Estimated Trough (mcg/ml): 11.7
Estimated Half Life (H): 18.4
- Monitoring
No levels ordered at this time: consider levels in next few days
Pharmacokinetics Vancomycin I
- -
Patient Age: 83
Patient Sex: Male
Vancomycin Day #: 1
Indication: Gi / Intra-Abdominal
Requesting Provider: Dr. Myrick
Pertinent Antimicrobial Allergies:
no pertinent antimicrobial allergies
Height / Weight:
Height 5 ft 9 in
Actual Weight 65 kg
Pertinent Past Medical History: heart transplant in 2001 on chronic immunosuppression, CKDIIIb
- Vital Signs / Lab Results
Temp Pulse Resp BP Pulse Ox
98.0 F 114 18 95/69 89
07/13/24 14:30 07/13/24 18:15 07/13/24 18:15 07/13/24 18:15 07/13/24 18:15
Lab Results - Hematology
07/13/24 07/13/24
10:04 17:40
WBC 15.8 H 12.3 H
Lab Results - Chemistry
07/13/24
10:04
BUN 49 H
Creatinine 1.3
Estimated Creat Clear 40
Albumin Cancelled
07/13/24 07/13/24 07/13/24
10:04 15:54 17:40
Lactic Acid 4.5 H* 2.5 H 1.8
--- NOTE | 2024-07-13 19:07 | PTCARENOTE ---
RN updated patient, pt , and pt daughter on medication administration, plan of care, and call moura use for assistance. Pt specific medications and insulin pen requested from pharmacy. Pt understands he is NPO for now. Levo gtt was ultimately
initiated for MAP < 65 per order. Pt also on iv abx, ivf, and heparin gtt per order. Pt denies pain and nausea at time of assessment. He is on 13-14L midflow for spO2 89-90%, severe pulm htn and copd hx. See MAR/flowsheets for further care details.
--- NOTE | 2024-07-13 19:30 | PTCARENOTE ---
Addendum entered by Simin Lemon RN 07/14/24 01:30:
Heparin gtt and Levophed via Left arm #20. Right FA #20 with IVF and ABx infusing. Sites WDL.
Original Note:
Patient received lying in bed awake, alert and oriented x 4. His and daughter are at the bedside. He currently denies pain. No abdominal pain, denies passing flatus. Denies urge to void. S1S2 distant. BBS with UL clear anteriorly. Bilateral
bases with fine crackles. BLE with 2+ pedal edema, positive pulses. Skin color is sallow. He is currently saturating 92% on 13L mid flow. ST on CM with 1st degree AVB. Takes oral meds and fluids without difficulty. Denies CP. Positive ROBLES with
desaturating to 80% with moderate recovery time.
[2024-07-13] MEDS: CELLCEPT 750 MG PO (19:37)
[2024-07-13] MEDS: LOPID 600 MG PO (19:38)
--- NOTE | 2024-07-13 20:00 | PTCARENOTE ---
Levophed gtt off. MAP 91. Will continue to monitor.
[2024-07-13] MEDS: CRESTOR 20 MG PO (21:09)
[2024-07-13] MEDS: LANTUS 0.18 UNITS SC (21:11)
[2024-07-13] MEDS: PROGRAF 1 MG PO (21:11)
[2024-07-13 21:24] LABS: Glucose - Point of Care 222 mg/dl (70-99)
[2024-07-13] MEDS: NOVOLOG FLEXPEN-LOW RESISTANCE 1 UNITS SC (23:47)
[2024-07-13 23:56] LABS: Glucose - Point of Care 184 mg/dl (70-99)
[2024-07-14] VITALS (59 sets, daily range): BP systolic 70–157; BP diastolic 51–94; BMI 21.6
--- NOTE | 2024-07-14 | PTCARENOTE ---
Patient appears to be sleeping when undisturbed. His respirations are nonlabored at rest, eyes closed and lying still. Rouses with some effort. Very groggy. Denies pain. PTT drawn. BS 184. Afebrile. BP stable.
--- NOTE | 2024-07-14 00:40 | PTCARENOTE ---
Patient awake. Removing gambling monitor, sat monitor, trying to climb OOB. He does not know where he is. He does not recall the name of his or daughter. Oriented to self. He does not know why he is in the hospital. Poor ST memory retention with
repetitive questions. He knows who is president. He does not know the year, month or day. Smile is equal, no tongue deviation. Bilateral pupils 2mm and sluggish. Equal hand grasps and pedal pushes. Clementina ICU OVERHEAD LINE WORKER notified. Patient reoriented as
needed. Emotional support and encouragement provided. Appears concerned.
--- NOTE | 2024-07-14 01:00 | PTCARENOTE ---
Patient states that he has to void. Assisted to stand at the bedside. He is very weak and shaky standing. His is only able to void approx 10-20cc. Bladder scan performed and revealed 561cc of urine. Bladder palpable. Attempted straight cath with 15
FR catheter and it would not advance past prostate. Coudet catheter requested from nursing oil field pipeline supervisor. PTT 182. Heparin gtt off for one hour.
--- NOTE | 2024-07-14 02:00 | PTCARENOTE ---
Patient was straight cath'd after 3 attempts--15Fr straight cath would not advance. 18FR coudet catheter again would not advance. Inserted 12 FR zabala catheter and was able to retrieve stream. 575cc medhat urine obtained. UA with C&S sent. Patient
now remembers 's name and he knows where he is. However, he is not holding his oxygen sats on 13L midflow. Sats are 85-86%. Increased midflow to 15L. Notified respiratory. Clementina BEST updated.
[2024-07-14 02:26] LABS: Urine Albumin 1+ (Neg - Trace); Urine Bilirubin 1+ (Negative); Urine Character Clear (Clear); Urine Color Yellow; Urine Glucose 3+ (Negative); Urine Ketone Trace (Negative); Urine Leukocyte Negative (Negative); Urine Nitrite Negative (Negative); Urine Occult Blood 3+ (Negative); Urine Urobilinogen Negative (Neg - 1+)
[2024-07-14 02:36] LABS: Urine Amorphous Seen; Urine Bacteria Many (Negative); Urine Mucus Many; Urine Red Blood Cell >100 /HPF (0-2); Urine Squamous Cell >30 /LPF (Few)
[2024-07-14] MEDS: NSS 1000 IV (04:50)
[2024-07-14 05:21] LABS: % Basophils 0.1 % (0-2); % Eosinophils 0.1 % (0-6); % Immature Granulocytes 0.2 % (0-0.5); % Lymphocytes 16.5 % (20.5-51.1); % Monocytes 14.8 % (1.7-9.3); % Neutrophils 68.3 % (42.2-75.2); Absolute Lymphocytes 1.6 10^3/uL (1.2-3.4); Absolute Monocytes 1.4 10^3/uL (0.1-0.6); Absolute Neutrophils 6.5 10^3/uL (1.4-6.5); Hematocrit 33.9 % (39.0-52.0); Hemoglobin 10.6 g/dL (13.0-18.0); Mean Corp Hgb Conc. 31.3 g/dL (33.0-37.0); Mean Corpuscular Hgb 28.6 pg (27.0-31.0); Mean Corpuscular Volume 91.6 fL (80.0-94.0); Mean Platelet Volume 12.7 fL (7.4-10.4); Nucleated Red Blood Cells % 0 % (-); Platelet Count 120 10^3/uL (130-400); Red Cell Dist. Width 14.6 % (11.5-14.5); White Blood Cell Count 9.6 10^3/uL (4.8-10.8)
[2024-07-14] MEDS: VANCOCIN 150 IV (05:39)
[2024-07-14] MEDS: ZOSYN 50 IV ×3 (05:39→17:29)
[2024-07-14] MEDS: SYNTHROID 175 MCG PO (05:39)
[2024-07-14] MEDS: NOVOLOG FLEXPEN-LOW RESISTANCE SC ×3 (06:31→18:19)
--- NOTE | 2024-07-14 06:32 | PTCARENOTE ---
Essentially no change in patient's physical assessment. Levophed resumed due to low SBP. Titrated according to BP. Patient dozing intermittently.
[2024-07-14 06:41] LABS: Glucose - Point of Care 130 mg/dl (70-99)
--- NOTE | 2024-07-14 07:00 | PTCARENOTE ---
Report given verbally to RN assuming careLayne. Questions answered.
--- NOTE | 2024-07-14 07:00 | PTCARENOTE ---
Incontinent of large amount of soft brown stool. Complete cares rendered, linens changed. Report given verbally to CADY Tillman. Questions answered.
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
--- NOTE | 2024-07-14 08:09 | W.PN.CD ---
Today's Communication / Plan
-
Follow up BCx/UCx data.
Check C. Diff.
Check tacrolimus/mycophenolate levels.
Continue ABX/pressors/supportive measures.
GI involved. Role for endoscopy/colonoscopy vs. empiric treatment of CMV enteritis/colitis?
Impression / Plan
-
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
mellitus, chronic kidney disease, prior PE on lifetime anticoagulation, and dyslipidemia admitted with enteritis/ileitis with septic shock.
#Sepsis/septic shock in an immunocompromised host
-Hypotension, tachycardia, leukocytosis (SIRS criteria) with lactic acidosis (evidence of end organ damage/hypoperfusion) requiring chemical hemodynamic support.
-Source appears to be UTI/GI (+UA, ileus/enteritis on CTA).
-CXR suggests some pneumonitis.
-DDx includes C. diff, and CMV (given large BM, acute presentation, immunocompromise). Difficult to discern pulmonary component given his underlying primary pulmonary disease.
-His normal troponin/hyperdynamic LV is reassuring against cardiogenic shock or acute rejection.
-Lactate has normalized.
-Continue ABX, hemodynamic supportive measures.
#Abdominal pain
-Acute.
-CTA 07/11/2024 with severe acute enteritis/ileus, progressed on repeat CTA 07/13/2024.
-Check C. diff toxin.
-GI involved. Role for endoscopy/colonoscopy with biopsy? If there is concern for CMV enteritis/colitis, we will either need tissue proof or treat empirically (gancyclovir).
-Role for ID?
#Chronic hypoxemic respiratory failure
-Chronic, end stage COPD, on 8 L nasal cannula at baseline.
-CXR shows pneumonitis.
-Maintain current bronchodilators.
#End-stage ischemic cardiomyopathy
-Hx of LVAD, followed by OHT ([facility], 2002).
-Echocardiogram shows hyperdynamic LV function.
-Check tacrolimus/mycophenolate levels.
#Pulmonary hypertension, severe
-Chronic.
-WHO group 3 (?) vs. 4 given known VTE vs. 5 (multifactorial).
-Stable on TTE.
-RV dilated with mildly reduced function.
#AAA
-Chronic, s/p EVAR complicated by endoleak.
-CT 07/11/2024 showed no acute changes with suspected persistent type II endoleak, re-confirmed on CTA 07/13/2024.
-Vascular surgery has been involved. No evidence of vascular source of abdominal pain (no mesenteric/bowel ischemia).
#Prior VTE
-Chronic, stable.
-Possible source of pulmonary hypertension (at least contributory)
-Requires lifelong anticoagulation. Apixaban on hold. Heparin gtt started.
#CKD, follow, may worsen with hypotension
#Type 2 diabetes mellitus, per primary
#Squamous cell carcinoma stage IIIa, right lower lobe, s/p XRT, PET avid, following with Drs. Craig & Consuelo
Critical Care Time = 60 minutes.
Primary flasher adjuster: Dr. Helm
Subjective/Interval History:
Norepinephrine on/off due to persistent hypotension.
Stress dose hydrocortisone given.
Apixaban held and heparin started.
Piperacillin/tazobactam and vancomycin started.
Incontinent of large amount of stool this morning.
Urinary retention overnight. Victoria catheter placed.
Weight up 2.9 kg from admission (63.5 kg --> 66.4 kg).
HR hovering between 90-115.
SaO2 = 90% at 13 LNC.
BCx/UCx pending.
Procalcitonin = 0.71.
Lactate 2.5 --> 1.8
DATA:
CXR, 07/13/2024:
IMPRESSION:
Suspect mild CHF and pneumonitis.
Small left pleural effusion with associated atelectasis or pneumonia.
CTA Abdomen/Pelvis, 07/13/2024:
IMPRESSION:
1. Grossly stable diffuse enteritis/ileus. No cristy obstruction. No overt CT evidence for bowel ischemia.
2. Probable reactive cecal colitis, progressed. The appendix is seen arising from the medial aspect of this inflamed portion of cecum, without overt evidence for acute appendicitis.
3. Small volume abdominopelvic ascites, slightly improved.
4. Small bilateral pleural effusions, stable on the left and slightly improved on the right, with associated bilateral lower lobe pleural-based consolidation which may reflect a combination of rounded atelectasis and pneumonia.
TTE, 07/13/2024:
CONCLUSIONS
Normal LV size with hyperdynamic function.
Left ventricular ejection fraction is 70-75% by visual estimation.
Enlarged RV with mildly reduced function.
Moderate LA dilation. Mild RA dilation.
No significant valvular abnormalities.
Severely elevated PASP 75-80 mmHg
Compared to the prior study of 03/01/2024, LV function is more hyperdynamic on
the present study and there are otherwise no significant changes.
Physical Exam
Vital Signs/Labs
Vital Signs
Temp Pulse Resp BP Pulse Ox
36.5 C 106 11 118/81 90
07/14/24 07:33 07/14/24 06:30 07/14/24 06:30 07/14/24 06:30 07/14/24 06:30
07/12/24 07/13/24 07/14/24
11:59 11:59 11:59
Actual Weight 65 kg 66.4 kg
APTT Cancelled 07/14/24 00:15
07/13/24 07/13/24
10:04 10:51
Qpb-A-Dnbfpaklrxh Pept Cancelled 3250
LAB Results
07/13/24 07/13/24
10:04 10:51
Troponin I Cancelled < 0.012
Physical Exam
Constitutional: No acute distress and Comfortable
EENT: Anicteric and Moist mucous membranes
Cardiovascular: Rhythm & rate is regular, Pedal edema is absent, JVD pressure is normal, S1S2 is normal and Murmur/rub/gallop absent
Respiratory: Respiratory effort normal, Wheeze Present (End expiratory in the bilateral lower bases, L > R.) and Other (Decreased throughout.)
GI: Soft, Flat and Abdomen is tender
Neuro/Psych: AO x 3
Data Reviewed
-
Date of Service: July 14, 2024
Medical Decision Making: Reviewed Test Results, Tests Ordered, Independent Historian Assessment and Test Interpretation
EKG: Tracing Personally Visualized and interpreted and Report Reviewed by me
Echo: Report Reviewed by me
X-Ray/CT/US/MRI/NUC/PET: Image Personally Visualized and interpreted and Report Reviewed by me
Labs: Labs Reviewed by me
Old Records: Reviewed
[2024-07-14] MEDS: SPIRIVA RESPIMAT 2.5 MCG 2 PUFF INH (08:15)
[2024-07-14] MEDS: SYMBICORT 80/4.5 MCG INHALER 2 PUFF INH ×2 (08:15→19:42)
[2024-07-14] MEDS: PROGRAF 3 MG PO (08:19)
[2024-07-14] MEDS: CELLCEPT 750 MG PO ×2 (08:19→19:20)
[2024-07-14] MEDS: LOPID 600 MG PO ×2 (08:20→19:20)
[2024-07-14 08:38] LABS: Hemoglobin 13.8 g/dL (13.0-18.0); Mean Corp Hgb Conc. 32.1 g/dL (33.0-37.0); Mean Corpuscular Hgb 28.9 pg (27.0-31.0); Mean Corpuscular Volume 90.1 fL (80.0-94.0); Mean Platelet Volume 12.2 fL (7.4-10.4); Platelet Count 139 10^3/uL (130-400); Red Blood Cell Count 4.77 10^6/uL (4.70-6.10); Red Cell Dist. Width 14.8 % (11.5-14.5); White Blood Cell Count 11.8 10^3/uL (4.8-10.8)
[2024-07-14 08:42] LABS: APTT 94.7 Sec (23.4-35.0)
[2024-07-14] MEDS: NEURONTIN PO (09:08)
[2024-07-14 09:12] LABS: ALT (SGPT) < 10 U/L (0-50); AST (SGOT) 21 U/L (17-59); Albumin 2.7 g/dl (3.5-5.0); Alkaline Phosphatase 72 U/L (38-126); Blood Urea Nitrogen 54 mg/dl (9-20); Calcium 8.1 mg/dl (8.4-10.2); Carbon Dioxide 20 mmol/L (22-30); Chloride 105 mmol/L (98-107); Estimated Creatinine Clearance 36 ml/min; Glucose 157 mg/dl (70-99); Potassium 4.2 mmol/L (3.5-5.1); Sodium 137 mmol/L (135-145); Total Protein 5.4 g/dl (6.3-8.2); eGFR 46.19
[2024-07-14] MEDS: LANTUS 0.18 UNITS SC ×2 (09:25→22:25)
--- NOTE | 2024-07-14 10:15 | PHA.VAN.FU ---
Vancomycin Assessment / Plan
- Assessment
Renal Function: SCR Increasing
WBC's are: Trending Up
In the past 24 hrs, patient has been: Afebrile
Concomitant Antimicrobials: piperacillin/tazobactam
- Dosing Plan
Continue: vancomycin 750 mg q24h
- Monitoring Plan
No level(s) ordered at this time: consider level in next few days
- Follow Up
Pharmacy will continue to follow.
Vancomycin Follow UP
- -
Patient Age: 83
Patient Sex: Male
Vancomycin Day #: 2
Indication: Gi / Intra-Abdominal
Requesting Provider: Dr. Myrick
Pertinent Antimicrobial Allergies:
no pertinent antimicrobial allergies
Height / Weight:
Height 5 ft 9 in
Actual Weight 66.4 kg
Pertinent Past Medical History: heart transplant in 2001 on chronic immunosuppression, CKDIIIb
- Vital Signs / Lab Results
Temp Pulse Resp BP Pulse Ox
97.7 F 107 13 121/81 88
07/14/24 07:33 07/14/24 10:00 07/14/24 10:00 07/14/24 10:00 07/14/24 10:00
Lab Results - Hematology
07/13/24 07/13/24 07/14/24
10:04 17:40 04:50
WBC 15.8 H 12.3 H 9.6
07/14/24
08:15
WBC 11.8 H
Lab Results - Chemistry
07/13/24 07/14/24 07/14/24
10:04 04:50 08:15
BUN 49 H Cancelled 54 H
Creatinine 1.3 Cancelled 1.5 H
Estimated Creat Clear 40 Cancelled 36
Albumin Cancelled Cancelled 2.7 L
07/13/24 07/13/24 07/13/24
10:04 15:54 17:40
Lactic Acid 4.5 H* 2.5 H 1.8
07/13/24
23:20
Lactic Acid Cancelled
Lab Results - Urine
07/14/24
02:16
Urine Nitrite (Reflex) Negative
Leukocyte Esterase Rfl Negative
Ur Squamous Epith Cells >30
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
--- NOTE | 2024-07-14 10:18 | W.PN.HOSP.TC ---
Addendum entered and electronically signed by Loreta Guillaume MD 07/14/24 19:28:
I saw and evaluated the patient independently. I reviewed the resident�s note and agree with findings and plan as documented by Dr. Garcia.
GENERAL: chronically ill appearing male in no apparent distress
HEENT: NC/AT--12L O2 NC
HEART: regular rate and rhythm, +S1, +S2
LUNGS : clear to auscultation bilaterally
ABDOM: soft, tender diffusely without guarding or rebound, nondistended, + bowel sounds
EXT: no cyanosis, clubbing, or edema
NEUROLOGIC: grossly intact
Septic Shock with pressor requirements-- also with acute on chronic hypoxemic respiratory failure (8L O2 baseline at home)--likely secondary to infection, intra-abdominal vs. urinary vs. respiratory---s/p 1L IVF, likely less than sepsis dosing due
to history of heart transplant/CHF/AKIon CKD-- On maintenance IVF 100cc/hr--cont vanco/zosyn--await cultures--consult ID since immunosuppressed- COVID negative. Blood Cultures pending, UA +, Reflex culture pending
Enteritis/Ileus/Cecal Colitis- CT findings suggestive of Enteritis/Ileus w/ Cecal Colitis, no appendicitis. No evidence for bowel ischemia apprec GI-- no plans for endoscopy/colonoscopy given current clinical condition. If develops diarrhea can
consider stool studies--advance diet [er GI
H/o Heart Failure, s/p Heart transplant 2001 (on chronic immunosuppression)- c/w tacrolimus & cellcept (pending serum drug levels)
Pulmonary Hypertension - recent echo 07/13/24 showing PASP 75-80 mmHg.
AAA s/p EVAR w/ endoleak - CT 07/13/24 showing stable endoleak, patent SMA and celiac a. Vascular following.
COPD - on chronic O2 supplementation at home 8L NC. Currently requiring mid flow. Oxygen support and weaning per customer engagement representative team.
Right Lower Lobe Squamous Cell Carcinoma
Essential Hypertension - holding metoprolol and enalapril. cardiology following.
Hypercholesterolemia - c/w gemfibrozil
IDDM - c/w Glargine 18U BID (half home dose due to NPO) & novolog Q6 w/ meals
CKD Stage III - creatinine at baseline. Will continue to monitor.
History of PE - holding Eliquis. On Heparin ggt.
DVT Ppx - Heparin ggt
Code Status - DNR
patient current with palliative care--will consult
Total Critical Care Time 36 minutes. I was immediately available to the patient and staff. I personally examined, reviewed labs, diagnostic images/reports, interpretations, treatment plans, discussed patient care with other providers and family
or caregivers (if patient is unable to make decisions), entered orders as appropriate and documented the medical record.
Original Note:
Today's Communication/Plan
-
Pressure and respiration support per customer engagement representative teams. ID
Assessment / Plan
Assessment / Plan
83 year old male
#Septic Shock, secondary to infection, intra-abdominal vs. urinary vs. respiratory
[Hypotensive requiring pressure support w/ levophed, tachycardic, tachypneic, leukocytosis, lactic acidosis w/ probably source of infection]
- s/p 1L IVF, likely less than sepsis dosing due to history of heart transplant. On maintenance IVF 100cc/hr
- Received one dose of IV Cefepime/Flagyl in ED. Cotinue on Zosyn/Vanco
- COVID negative. Blood Cultures pending, UA +, Reflex culture pending
- Still requiring levo, wean pressors per customer engagement representative
- ID following.
#Enteritis/Ileus
#Cecal Colitis
- CT findings suggestive of Enteritis/Ileus w/ Cecal Colitis, no appendicitis. No evidence for bowel ischemia.
- GI consulted, no plans for endoscopy/colonoscopy given current clinical condition. If develops diarrhea can consider stool studies.
- NPO for now, can progress to CLD as tolerated.
#H/o Heart Failure, s/p Heart transplant 2001 (on chronic immunosuppression)
- c/w tacrolimus & cellcept (pending serum drug levels)
#Pulmonary Hypertension - recent echo 07/13/24 showing PASP 75-80 mmHg.
#AAA s/p EVAR w/ endoleak - CT 07/13/24 showing stable endoleak, patent SMA and celiac a. Vascular following.
#COPD - on chronic O2 supplementation at home 8L NC. Currently requiring mid flow. Oxygen support and weaning per customer engagement representative team.
#Right Lower Lobe Squamous Cell Carcinoma
#Essential Hypertension - holding metoprolol and enalapril. cardiology following.
#Hypercholesterolemia - c/w gemfibrozil
#IDDM - c/w Glargine 18U BID (half home dose due to NPO) & novolog Q6 w/ meals.
#CKD Stage III - creatinine at baseline. Will continue to monitor.
#History of PE - holding Eliquis. On Heparin ggt.
Diet - NPO
DVT Ppx - Heparin ggt
Code Status - DNR
Anticipated Discharge: > 48 hours
Subjective/Interval History
-
Feeling OK this morning, with improvement in abdominal pain, though it is still present. No new fevers or chills overnight. Patient now requiring 12L Oxygen and unable to wean past 2mcg levo.
Objective Data
-
Labs:
Laboratory Results
07/14/24 07/14/24 07/14/24
00:02 00:15 04:50
WBC 9.6
Hgb 10.6 L D
Hct 33.9 L
Plt Count 120 L D
APTT 182.0 H* Cancelled
Sodium Cancelled
Potassium Cancelled
Chloride Cancelled
Carbon Dioxide Cancelled
BUN Cancelled
Creatinine Cancelled
Glucose Cancelled
Calcium Cancelled
Total Bilirubin Cancelled
AST Cancelled
ALT Cancelled
Alkaline Phosphatase Cancelled
07/14/24
08:15
WBC 11.8 H
Hgb 13.8 D
Hct 43.0
Plt Count 139
APTT 94.7 H
Sodium 137
Potassium 4.2
Chloride 105
Carbon Dioxide 20 L
BUN 54 H
Creatinine 1.5 H
Glucose 157 H
Calcium 8.1 L
Total Bilirubin 1.0
AST 21
ALT < 10
Alkaline Phosphatase 72
Vital Signs:
Vital Signs
Temp Pulse Resp BP Pulse Ox
97.7 F 107 13 121/81 88
07/14/24 07:33 07/14/24 10:00 07/14/24 10:00 07/14/24 10:00 07/14/24 10:00
I&O
07/13/24 07/14/24 07/15/24
06:59 06:59 06:59
Intake Total 2433.8 / 2551.3 235.0 / 235.0
Output Total 595 / 595
Balance 1838.8 / 1956.3 235.0 / 235.0
Review of Systems
-
History Source: Patient
All other systems: Reviewed and negative
Constitutional: Reports No Symptoms
EENT: Reports No Symptoms Reported
Respiratory: Reports No Symptoms
Cardiac: Reports No Symptoms
Abdomen/GI: Reports Abdominal Pain; Denies Nausea, Vomiting or Diarrhea
Breast: Reports N/A
Genitourinary: Reports No Symptoms
Musculoskeletal: Reports No Symptoms
Skin: Reports No Symptoms
Neuro: Reports No Symptoms
Physical Exam
-
General: Well Developed, Well Nourished, No Apparent Distress, Comfortable and Appears Chronically Ill
HEENT: Normocephalic, Atraumatic, Moist Mucous Membranes, Anicteric, Tinsman Conjunctivae and PERRLA
Respiratory: Non Labored Respirations and Decreased Breath Sounds; Negative Wheezes, Rales or Rhonchi
Cardiac: S1/S2, Irregular Rhythm and Tachycardic; Negative Murmur
Breast: N/A
GI: Nondistended and Tender (Tenderness to light and deep palpation in the epigastric and Right hemiabdomen. No rebound or tenderness in the L hemiabdomen. ); Negative Normal Bowel Sounds
Genito-urinary: Other (Straight cath; medhat colored urine)
Musculoskeletal: No Clubbing, No Cyanosis and No Edema
Skin: IV Access / Catheter Site
Neuro: AO x 3 and Nonfocal/Grossly Intact
[2024-07-14 10:43] LABS: Glycohemoglobin (HgbA1c) 7.3 % (4.0-5.6)
[2024-07-14 11:17] LABS: COVID-19 Antigen Negative (Negative)
[2024-07-14 11:57] LABS: Glucose - Point of Care 126 mg/dl (70-99)
[2024-07-14] MEDS: VIBRAMYCIN 100 MG PO ×2 (12:40→19:20)
--- NOTE | 2024-07-14 12:51 | W.CON.PAL ---
Addendum entered and electronically signed by Cierra Alejo MD 07/14/24 13:34:
Family arrived and code status was reviewed again. ICU attending Dr. Cm, Hospitalist resident Dr. Garcia, and myself present.
Patient and family in agreement with code status change to DNR.
Original Note:
Consultation
-
Date/Time Consultation Requested: 07/14/24
Date/Time Consultation Performed: 07/14/24
Requesting Provider: Dr. Derrell Garcia
Performing Provider: Dr. Alejo
Reason for Consult: Goals of Care Discussion
Primary Diagnosis: COPD/Emphysema
Consult Requested By: Patient's Physician
Reason for Admission
Illness Course/HPI
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 also hx of heart transplant 2001, severe pHTN, Lung cancer s/p radiation. over the last week has been having abdominal pain
symptoms. presented to er 07/13 with worsening pain. currently being treated for sepsis/presumed infectious enteritis. His respiratory status is also worsened - upto 14L during visit - although denies dyspnea at present. Covid swab done this morning,
pending.
Functional Status
At patient's baseline he lives with his , independent of ADls and IADls. uses 8L oxygen continuously
Goals of Care Discussion
-
Individuals Present for Discussion & Relationship to Patient:
Patient
Patient able to participate in discussion at time of visit: Yes
Patient's Information Preferences: Defer to Family
Patient Goals
Patient has previously completed his LW. Appoint his Stefany as medical POA followed by daughter Rosa.
previously stated goals - full code, would not want prolonged life support if unable to be removed, would want hospitalization. would not want hospice at this time.
Discussed goals today given worsening respiratory status and high risk of requiring intubation this hospitalization. Discussed the risks of intubation, CPR, likliehood of meaningful recovery. he would not want fci intubation/ventilation however
was unwilling to change code status as was not present for discussion. will be coming in later today. recommended that they discuss this given the severity of his condition, and consider change to DNR . he will discuss with later
today and inform. he is biggest fear is that if he agrees to DNR is that he will stop getting medical treatment, and I assured him that was not the case. he is not interested in hospice as he is not ready to stop his treatments at this time.
Pain & Symptom Assessment
Patient Symptoms
Patient Symptoms: Pain (stomach ) and Nausea/Vomiting
Objective Data
-
Objective Data:
Vital Signs
Temp Pulse Resp BP Pulse Ox
97.7 F 107 13 121/81 90
07/14/24 11:14 07/14/24 10:00 07/14/24 10:00 07/14/24 10:00 07/14/24 11:31
Laboratory Results
07/14/24 08:15
07/14/24 08:15
APTT 94.7 Sec (23.4-35.0) H 07/14/24 08:15
Hemoglobin A1c 7.3 % (4.0-5.6) H 07/14/24 08:15
Total Protein 5.4 g/dl (6.3-8.2) L 07/14/24 08:15
Albumin 2.7 g/dl (3.5-5.0) L 07/14/24 08:15
Urine Color Yellow 07/14/24 02:16
Urine Clarity Clear (Clear) 07/14/24 02:16
Urine pH 5.0 (5.0-9.0) 07/14/24 02:16
Ur Specific Dennard 1.020 (<1.030) 07/14/24 02:16
Urine Ketones Trace (Negative) A 07/14/24 02:16
Urine Bilirubin 1+ (Negative) A 07/14/24 02:16
Palliative Performance Scale
Palliative Performance Scale:
PPS Level Ambulation Activity & Evidence of Disease Self Care Intake Conscious Level
100% Full Normal Activity & Work; Full Intake Full
No Evidence of Disease
90% Full Normal Activity & Work; Full Normal Full
Some Evidence of Disease
80% Full Normal Activity with Effort Full Normal or Full
Some Evidence of Disease Reduced
70% Reduced Unable Normal Job/Work Full Normal or Full
Significant Disease Reduced
60% Reduced Unable Hobby/Housework Occasional Normal or Full or Confusion
Significant Disease Assistance Reduced
50% Mainly Sit/Lie Unable to do Any Work Considerable Normal or Full or Confusion
Extensive Disease Assistance Req'd Reduced
40% Mainly in Bed Unable to do Most Activity Mainly Assistance Normal or Full or Drowsy;
Extensive Disease Reduced +/- Confusion
30% Totally Bed Unable to do Any Activity Total Care Normal or Full or Drowsy;
Bound Extensive Disease Reduced +/- Confusion
20% Totally Bed Bound Unable to do Any Activity Total Care Minimal to Full or Drowsy;
Extensive Disease Sips +/- Confusion
10% Totally Bed Bound Unable to do Any Activity Total Care Mouth Care Drowsy or Coma;
Extensive Disease Only +/- Confusion
0%
PPS Score Level:
Palliative Performance Score Response
Palliative Performance Score Response: 50%
Physical Exam
-
General: Comfortable
Neuro: Awake and Alert
Psych: Calm
Assessment / Plan
-
Assessment/Plan:
Discussed code status, remains full code at this time. patient to review with
total floor time 60 min
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
[2024-07-14] MEDS: NSS IV (13:32)
[2024-07-14] MEDS: NEURONTIN 300 MG PO ×2 (16:12→22:25)
--- NOTE | 2024-07-14 17:07 | CM ---
Patient seen earlier today with physicians. Patient stated that he has [facility] and Palliative care at home along with a trilogy machine and lives with his . Patient stated that it is a first floor set up. Patient PCP is Dr. Swenson and he uses the
[facility] in [place]. Patient has a trilogy at home and [facility] for home O2. CM will continue to follow for discharge planning needs.
Plan; TBD pending assessments and palliative care
[2024-07-14] MEDS: HEPARIN 25000 UNITS/250 ML IV (17:35)
[2024-07-14 18:07] LABS: APTT 81.8 Sec (23.4-35.0)
--- NOTE | 2024-07-14 18:13 | PTCARENOTE ---
Received pt on 13L Midflow, desating, needing to be increased to 15 L. Pt continued to desat to 84-86%. AT noon pt needing High Flow, initially 60L 90%, sat improved to 95%, weaned to HF 50L 80%. Pt sinus tach on the monitor 110-120's. RR 16-20. Pt
drowsy, easily arousable and alert and oriented when awake. Reports abdominal pain continues, tolerable. Denies nausea. NPO. Able to take sips and meds. Levophed weaned off by 1300. No urine output throughout the day. Bladder scanned for 317ml.
ordered a Victoria, 12F placed. Pt and family discussed CODE status w/ Dr Cm, after much discuss, DNR status decided. Will continue to monitor closely.
[2024-07-14 18:16] LABS: Glucose - Point of Care 90 mg/dl (70-99)
[2024-07-14] MEDS: CRESTOR 20 MG PO (22:25)
[2024-07-14 22:37] LABS: Glucose - Point of Care 90 mg/dl (70-99)
[2024-07-15] VITALS (68 sets, daily range): BP systolic 82–178; BP diastolic 40–156; BMI 21.8
[2024-07-15] MEDS: NOVOLOG FLEXPEN-LOW RESISTANCE SC ×5 (00:08→23:50)
[2024-07-15] MEDS: ZOSYN 50 IV ×5 (00:12→23:48)
--- NOTE | 2024-07-15 04:42 | PTCARENOTE ---
07/14/24 - received pt from [facility], family at bedside, assessments completed. pt remains on heparin gtt with levo off, zabala patent for tea colored urine. no c/o of pain or discomfort, patient alert and able to make needs known.
--- NOTE | 2024-07-15 04:43 | PTCARENOTE ---
07/15/24 - MAP < 60, restarted levo at 2. patient remains sleeping comfortably offering no c/o pain or discomfort, PO meds taken without issue, zabala output decreased, 10-15 ml hr, ELECTROLYSIS OPERATOR aware, no IVF running other than levo/heparin.
[2024-07-15 04:52] LABS: APTT 63.4 Sec (23.4-35.0)
[2024-07-15 05:04] LABS: ALT (SGPT) < 10 U/L (0-50); AST (SGOT) 23 U/L (17-59); Albumin 2.7 g/dl (3.5-5.0); Alkaline Phosphatase 85 U/L (38-126); Blood Urea Nitrogen 54 mg/dl (9-20); Calcium 7.7 mg/dl (8.4-10.2); Carbon Dioxide 20 mmol/L (22-30); Chloride 107 mmol/L (98-107); Estimated Creatinine Clearance 33 ml/min; Glucose 63 mg/dl (70-99); Potassium 4.3 mmol/L (3.5-5.1); Sodium 138 mmol/L (135-145); Total Bilirubin 1.2 mg/dl (0.2-1.3); Total Protein 5.4 g/dl (6.3-8.2); eGFR 42.75
[2024-07-15] MEDS: DEXTROSE 50% SYRINGE 12.5 GRAMS IV ×4 (05:39→15:11)
[2024-07-15] MEDS: SYNTHROID 175 MCG PO (05:40)
[2024-07-15 05:52] LABS: Glucose - Point of Care 58 mg/dl (70-99)
--- NOTE | 2024-07-15 06:16 | PTCARENOTE ---
07/15- heparin gtt titrated up by 300, new labs ordered, pt also had bg of 58, gave 12.5 ml iv dextrose, recheck at 15 min new result 114, will recheck at 8am and 10am
[2024-07-15 06:17] LABS: Glucose - Point of Care 114 mg/dl (70-99)
--- NOTE | 2024-07-15 06:48 | W.PN.HOSP.TC ---
Addendum entered and electronically signed by Loreta Guillaume MD 07/15/24 15:26:
I saw and evaluated the patient independently. I reviewed the resident�s note and agree with findings and plan as documented by Dr. Garcia.
GENERAL: chronically ill appearing male in no apparent distress
HEENT: NC/AT--HI BHARATHI O2
HEART: regular rate and rhythm, +S1, +S2
LUNGS : clear to auscultation bilaterally
ABDOM: soft, tender diffusely without guarding or rebound, nondistended, + bowel sounds
EXT: no cyanosis, clubbing, or edema
NEUROLOGIC: grossly intact
Septic Shock with pressor requirements-- also with acute on chronic hypoxemic respiratory failure (8L O2 baseline at home)--likely secondary to infection, intra-abdominal vs. urinary vs. respiratory---s/p 1L IVF, likely less than sepsis dosing due
to history of heart transplant/CHF/BHUMI on CKD--off IVF--cont vanco/zosyn--cultures negative to date--apprec ID since immunosuppressed- COVID negative
Enteritis/Ileus/Cecal Colitis- CT findings suggestive of Enteritis/Ileus w/ Cecal Colitis, no appendicitis. No evidence for bowel ischemia apprec GI-- no plans for endoscopy/colonoscopy given current clinical condition. If develops diarrhea can
consider stool studies--advance diet per GI
H/o Heart Failure, s/p Heart transplant 2001 (on chronic immunosuppression)- c/w tacrolimus & cellcept
Pulmonary Hypertension - recent echo 07/13/24 showing PASP 75-80 mmHg.
AAA s/p EVAR w/ endoleak - CT 07/13/24 showing stable endoleak, patent SMA and celiac a. Vascular following.
COPD - on chronic O2 supplementation at home 8L NC. Currently requiring mid flow. Oxygen support and weaning per gasoline pump installer team.
Right Lower Lobe Squamous Cell Carcinoma
Essential Hypertension - holding metoprolol and enalapril. cardiology following.
Hypercholesterolemia - c/w gemfibrozil
IDDM - c/w Glargine 18U BID (half home dose due to NPO) & novolog AC
CKD Stage III - creatinine at baseline. Will continue to monitor.
History of PE -restart Eliquis--stop heparin drip
DVT Ppx - Heparin ggt
Code Status - DNR
patient current with palliative care--apprec input
Total Critical Care Time 31 minutes. I was immediately available to the patient and staff. I personally examined, reviewed labs, diagnostic images/reports, interpretations, treatment plans, discussed patient care with other providers and family
or caregivers (if patient is unable to make decisions), entered orders as appropriate and documented the medical record.
Original Note:
Today's Communication/Plan
-
Wean O2 per gasoline pump installer team. C/w IV abx. Adjust insulin for hypoglycemia.
Assessment / Plan
Assessment / Plan
83 year old male
#Septic Shock, secondary to infection, intra-abdominal vs. urinary vs. respiratory
[Hypotensive requiring pressure support w/ levophed, tachycardic, tachypneic, leukocytosis, lactic acidosis w/ probably source of infection]
- s/p 1L IVF, likely less than sepsis dosing due to history of heart transplant. Holding IVF in the setting of worsening hypoxia and CXR showing sm bl pleural effusions.
- Received one dose of IV Cefepime/Flagyl in ED. Cotinue on Zosyn/Vanco
- COVID negative. Blood Cultures NGx48 hours, UA +, urine culture pending
- Still requiring levo, wean pressors per gasoline pump installer
- ID following.
#Enteritis/Ileus
#Cecal Colitis
- CT findings suggestive of Enteritis/Ileus w/ Cecal Colitis, no appendicitis. No evidence for bowel ischemia.
- GI consulted, no plans for endoscopy/colonoscopy given current clinical condition. If develops diarrhea can consider stool studies.
- still NPO, has not progressed to CLD.
#H/o Heart Failure, s/p Heart transplant 2001 (on chronic immunosuppression)
- There was a discrepancy in dosing; cleared up misunderstanding with the patient who takes 'THREE and TWO' of the 0.5mg tablets, equalling his home doses of 1.5mg and 1mg, respectively.
- c/w tacrolimus & cellcept (pending serum drug levels)
#Pulmonary Hypertension - recent echo 07/13/24 showing PASP 75-80 mmHg.
#AAA s/p EVAR w/ endoleak - CT 07/13/24 showing stable endoleak, patent SMA and celiac a. Vascular following.
#COPD - on chronic O2 supplementation at home 8L NC. Currently requiring mid flow. Oxygen support and weaning per gasoline pump installer team.
#Right Lower Lobe Squamous Cell Carcinoma
#Essential Hypertension - holding metoprolol and enalapril. cardiology following.
#Hypercholesterolemia - c/w gemfibrozil
#IDDM - may decrease basal insulin pending pharmacy discussion, given hypoglycemia and NPO status.
#CKD Stage III - creatinine at baseline. Will continue to monitor.
#History of PE - holding Eliquis. On Heparin ggt.
Diet - NPO
DVT Ppx - Heparin ggt
Code Status - DNR
Anticipated Discharge: > 48 hours
Subjective/Interval History
-
Feeling well this morning, no acute complaints. Slept well, no new fevers or chills. Shortness of breath improving. Abdominal pain nearly resolved, no new nausea, vomiting. Overnight he had a drop in blood sugar to the 50s. He required levophed for
pressure support and had decreased urine output.
Objective Data
-
Labs:
Laboratory Results
07/15/24 07/15/24
04:30 11:30
WBC Pending
Hgb Pending
Hct Pending
Plt Count Pending
APTT 63.4 H Pending
Sodium 138
Potassium 4.3
Chloride 107
Carbon Dioxide 20 L
BUN 54 H
Creatinine 1.6 H
Glucose 63 L
Calcium 7.7 L
Total Bilirubin 1.2
AST 23
ALT < 10
Alkaline Phosphatase 85
Vital Signs:
Vital Signs
Temp Pulse Resp BP Pulse Ox
97.7 F 124 17 102/68 93
07/15/24 04:00 07/15/24 04:30 07/15/24 04:30 07/15/24 04:00 07/15/24 05:15
I&O
07/13/24 07/14/24 07/15/24
06:59 06:59 06:59
Intake Total 2433.8 / 2551.3 1058.5 / 1058.5
Output Total 595 / 595 310 / 310
Balance 1838.8 / 1956.3 748.5 / 748.5
Review of Systems
-
History Source: Patient
Constitutional: Denies Fever, Fatigue, Night Sweats or Chills
EENT: Denies Sore Throat or Runny Nose
Respiratory: Reports Trouble Breathing; Denies Cough, Hemoptysis, Wheezing or Pleurisy
Cardiac: Denies Chest Pain, Diaphoresis, Palpitations or Syncope
Abdomen/GI: Reports Abdominal Pain; Denies Nausea, Vomiting, Diarrhea, Constipated or GERD
Breast: Reports N/A
Genitourinary: Reports No Symptoms
Musculoskeletal: Denies Joint Pain, Joint Swelling or Muscle Pain
Skin: Reports No Symptoms
Neuro: Denies Dizzy, Headache or Lightheadedness
Hematologic / Lymphatic: Denies Bleeding
Physical Exam
-
General: Well Developed, No Apparent Distress, Comfortable and Appears Chronically Ill; Negative Pain, Fever or Chills
HEENT: Normocephalic, Atraumatic, Moist Mucous Membranes, Anicteric, [facility] Conjunctivae, PERRLA, Nose Appears Normal, Ears Appear Normal and Oxygen (High flow oxygen)
Respiratory: Crackles, Non Labored Respirations and Decreased Breath Sounds; Negative Wheezes or Rhonchi
Cardiac: Regular Rhythm, S1/S2 and Tachycardic; Negative Murmur
GI: Soft, Nondistended, Normal Bowel Sounds and Tender (minimally tender to light and deep palpation in the R hemiabdomen and epigastric region.)
Genito-urinary: Clear Urine and [place]
Musculoskeletal: No Clubbing, No Cyanosis and No Edema
Skin: IV Access / Catheter Site
Neuro: AO x 3 and Nonfocal/Grossly Intact
[2024-07-15 07:01] LABS: % Basophils 0.2 % (0-2); % Eosinophils 0.2 % (0-6); % Immature Granulocytes 0.5 % (0-0.5); % Lymphocytes 14.2 % (20.5-51.1); % Monocytes 11.8 % (1.7-9.3); % Neutrophils 73.1 % (42.2-75.2); Absolute Immature Granulocytes 0.1 10^3/uL (0-0.05); Absolute Lymphocytes 1.6 10^3/uL (1.2-3.4); Absolute Monocytes 1.3 10^3/uL (0.1-0.6); Absolute Neutrophils 8.1 10^3/uL (1.4-6.5); Hemoglobin 13.2 g/dL (13.0-18.0); Mean Corp Hgb Conc. 32.2 g/dL (33.0-37.0); Mean Corpuscular Hgb 28.8 pg (27.0-31.0); Mean Corpuscular Volume 89.5 fL (80.0-94.0); Mean Platelet Volume 12.8 fL (7.4-10.4); Nucleated Red Blood Cells % 0 % (-); Platelet Count 168 10^3/uL (130-400); Red Blood Cell Count 4.58 10^6/uL (4.70-6.10); Red Cell Dist. Width 14.9 % (11.5-14.5)
[2024-07-15] MEDS: SPIRIVA RESPIMAT 2.5 MCG 2 PUFF INH (07:46)
[2024-07-15] MEDS: SYMBICORT 80/4.5 MCG INHALER 2 PUFF INH ×2 (07:47→20:17)
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
[2024-07-15 08:15] LABS: Glucose - Point of Care 71 mg/dl (70-99)
--- NOTE | 2024-07-15 08:39 | W.PN.ID1 ---
Date of Service
Date of Service: July 15, 2024
Today's Communication
sputum for culture
blood cultures nonrevealing thus far
continue zosyn/doxycycline
Assessment / Plan
Shock Likely Septic - possibly improving
Acute hypoxemic resp failure - baseline O2 requirement 8L
Enteritis/ileus
Heart Transplantation 2001
Immunosuppression
Pulmonary HTN - end stage
CKD
- blood cultures x2 no growth to date
- had sputum sample at the bedside - appears to be a viable sample
- Urine culture no significant growth
- covid ag negative
- can attempt to obtain sputum for culture if producing (none thus far), pulmonary symptoms seem to be at his baseline
- C difficile, stool culture could be sent if diarrhea that is not due to cathartics
- agree with zosyn at this time
- c/w doxycycline
- patient is critically ill with a very high burden of pre-existing disease, medium term prognosis poor
Chief Complaint
-: Other (shock, enteritis)
Subjective / Review of Systems
afebrile
now on high flow O2 50L/min, 70% o2
remains on low dose pressors
code status now DNR
reports abdominal pain further improved
Vital Signs / Physical Exam
Vital Signs
Vital Signs
Temp Pulse Resp BP Pulse Ox
97.5 F 131 20 100/68 92
07/15/24 07:54 07/15/24 08:15 07/15/24 08:15 07/15/24 08:15 07/15/24 08:31
Physical Exam
Constitutional: Acutely Ill and Chronically Ill
Cardiovascular: Regular Rate and S1/S2; Negative Murmur or Rub
Pulmonary: Clear and Symmetric; Negative Wheezes or Rales
Gastrointestinal: Soft, Tender (RUQ and RLQ - mild now with moderate touch), Non Distended and Normal Bowel Sounds
Skin: Warm and Dry; Negative Rash or Jaundice
Objective Data
Lab Data
Lab Results
07/15/24 04:30
07/15/24 04:30
APTT 63.4 Sec (23.4-35.0) H 07/15/24 04:30
Estimated Creat Clear 33 ml/min 07/15/24 04:30
Lactic Acid Cancelled 07/13/24 23:20
Total Bilirubin 1.2 mg/dl (0.2-1.3) 07/15/24 04:30
AST 23 U/L (17-59) 07/15/24 04:30
ALT < 10 U/L (0-50) 07/15/24 04:30
Alkaline Phosphatase 85 U/L (38-126) 07/15/24 04:30
Most recent labs reviewed.
Micro Results:
07/13/24 10:04 Blood Culture - Preliminary
Blood/Venous No Growth in 24 hours- Final report to follow
07/13/24 10:04 Blood Culture - Preliminary
Blood/Venous No Growth in 24 hours- Final report to follow
07/14/24 02:16 Urine Culture - Pending
Urine
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
--- NOTE | 2024-07-15 09:11 | W.PN.CD ---
Today's Communication / Plan
-
continue to optimize resp status as per pulmonary
monitor culutres ( negative BC to date )
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
ECG today
watch for Tacrolimus level which is pending
Impression / Plan
-
Impression/Plan: 83 y/o male with end-stage ischemic cardiomyopathy status post OHT ([facility], 2001), severe pHTN, AAA status post EVAR complicated by endoleak on surveillance, COPD, small cell lung cancer status post XRT, hypertension, type 2 diabetes
mellitus, chronic kidney disease, prior PE on lifetime anticoagulation, and dyslipidemia admitted with enteritis/ileitis with septic shock.
#Sepsis/septic shock in an immunocompromised host
-Hypotension, tachycardia, leukocytosis (SIRS criteria) with lactic acidosis (evidence of end organ damage/hypoperfusion) requiring chemical hemodynamic support.
-Source appears to be UTI/GI (+UA, ileus/enteritis on CTA).
-CXR suggests some pneumonitis.
-DDx includes C. diff, and CMV (given large BM, acute presentation, immunocompromise). Difficult to discern pulmonary component given his underlying primary pulmonary disease.
-His normal troponin/hyperdynamic LV is reassuring against cardiogenic shock or acute rejection.
-Lactate has normalized.
-Continue ABX, hemodynamic supportive measures.
- BC neagtive to date
#Abdominal pain
-Acute.
-CTA 07/11/2024 with severe acute enteritis/ileus, progressed on repeat CTA 07/13/2024.
-Check C. diff toxin.
-GI involved. Role for endoscopy/colonoscopy with biopsy? If there is concern for CMV enteritis/colitis, we will either need tissue proof or treat empirically (gancyclovir).
# Heart transplant ( [facility] 2021)
- normal LVF by echo this admit
- echo 07/13/24
Normal LV size with hyperdynamic function.
Enlarged RV with mildly reduced function.
Moderate LA dilation. Mild RA dilation.
No significant valvular abnormalities.
Severely elevated PASP 75-80 mmHg
- tacrolimus level pending
# tachycardia - appears consistent with sinus tachycardia
#Chronic hypoxemic respiratory failure
-Chronic, end stage COPD, on 8 L nasal cannula at baseline.
- patient on high flow
-CXR shows pneumonitis.
-continued tx as per shank cutter
#End-stage ischemic cardiomyopathy
-Hx of LVAD, followed by OHT ([facility], 2002).
-Echocardiogram shows hyperdynamic LV function.
-Check tacrolimus/mycophenolate levels.
#Pulmonary hypertension, severe
-Chronic.
-WHO group 3 (?) vs. 4 given known VTE vs. 5 (multifactorial).
-Stable on TTE.
-RV dilated with mildly reduced function.
#AAA
-Chronic, s/p EVAR complicated by endoleak.
-CT 07/11/2024 showed no acute changes with suspected persistent type II endoleak, re-confirmed on CTA 07/13/2024.
-Vascular surgery has been involved. No evidence of vascular source of abdominal pain (no mesenteric/bowel ischemia).
#CKD,creatinine 1.6 monitor
#Type 2 diabetes mellitus, per primary
#Squamous cell carcinoma stage IIIa, right lower lobe, s/p XRT, PET avid, following with Drs. Craig & Consuelo
Critical Care Time = 60 minutes.
Primary religion professor: Dr. Helm
Subjective/Interval History:
Norepinephrine on/off due to persistent hypotension.
Stress dose hydrocortisone given.
Apixaban held and heparin started.
Piperacillin/tazobactam and vancomycin started.
Incontinent of large amount of stool this morning.
Urinary retention overnight. Victoria catheter placed.
Weight up 2.9 kg from admission (63.5 kg --> 66.4 kg).
HR hovering between 90-115.
SaO2 = 90% at 13 LNC.
BCx/UCx pending.
Procalcitonin = 0.71.
Lactate 2.5 --> 1.8
DATA:
CXR, 07/13/2024:
IMPRESSION:
Suspect mild CHF and pneumonitis.
Small left pleural effusion with associated atelectasis or pneumonia.
CTA Abdomen/Pelvis, 07/13/2024:
IMPRESSION:
1. Grossly stable diffuse enteritis/ileus. No cristy obstruction. No overt CT evidence for bowel ischemia.
2. Probable reactive cecal colitis, progressed. The appendix is seen arising from the medial aspect of this inflamed portion of cecum, without overt evidence for acute appendicitis.
3. Small volume abdominopelvic ascites, slightly improved.
4. Small bilateral pleural effusions, stable on the left and slightly improved on the right, with associated bilateral lower lobe pleural-based consolidation which may reflect a combination of rounded atelectasis and pneumonia.
TTE, 07/13/2024:
CONCLUSIONS
Normal LV size with hyperdynamic function.
Left ventricular ejection fraction is 70-75% by visual estimation.
Enlarged RV with mildly reduced function.
Moderate LA dilation. Mild RA dilation.
No significant valvular abnormalities.
Severely elevated PASP 75-80 mmHg
Compared to the prior study of 03/01/2024, LV function is more hyperdynamic on
the present study and there are otherwise no significant changes.
Physical Exam
Vital Signs/Labs
Vital Signs
Temp Pulse Resp BP Pulse Ox
97.5 F 128 17 94/59 92
07/15/24 07:54 07/15/24 08:30 07/15/24 08:30 07/15/24 08:30 07/15/24 08:31
07/14/24 07/15/24 07/16/24
06:59 06:59 06:59
Actual Weight 66.4 kg 66.9 kg
07/15/24 04:30
07/15/24 04:30
APTT 63.4 Sec (23.4-35.0) H 07/15/24 04:30
07/13/24 07/13/24
10:04 10:51
Amv-V-Bbbyosohmhj Pept Cancelled 3250
LAB Results
07/13/24 07/13/24
10:04 10:51
Troponin I Cancelled < 0.012
Physical Exam
Constitutional: No acute distress
Cardiovascular: Rhythm & rate is regular (tachycardic)
Respiratory: Wheeze Present (bilat. High flow O2)
GI: Soft and Non tender
Neuro/Psych: Alert
Data Reviewed
-
Date of Service: July 15, 2024
Medical Decision Making: Reviewed Test Results
Echo: Report Reviewed by me
Medical Tests (PFT, Pathology etc): Report Reviewed by me
Labs: Labs Reviewed by me
Critical Care Time (in minutes): 40
[2024-07-15 10:11] LABS: Glucose - Point of Care 60 mg/dl (70-99)
[2024-07-15] MEDS: NEURONTIN 300 MG PO ×3 (10:17→22:56)
[2024-07-15] MEDS: LOPID 600 MG PO ×2 (10:17→20:37)
[2024-07-15] MEDS: CELLCEPT 750 MG PO ×2 (10:17→20:37)
[2024-07-15] MEDS: VIBRAMYCIN 100 MG PO ×2 (10:19→20:37)
[2024-07-15] MEDS: LOPRESSOR 5 MG IV ×2 (10:22→16:28)
--- NOTE | 2024-07-15 10:29 | W.PN.PAL2 ---
Today's Communication
-
Palliative care follow up
patient seen at bedside, daughter present.
Patient reports abdominal pain improved today. still requiring pressors and highflow oxygen
provided support to family
total time 20 mins
Objective Data
-
Objective Data:
Vital Signs
Temp Pulse Resp BP Pulse Ox
97.5 F 135 20 113/73 86
07/15/24 07:54 07/15/24 10:22 07/15/24 10:00 07/15/24 10:22 07/15/24 10:00
Laboratory Results
07/15/24 04:30
07/15/24 04:30
APTT 63.4 Sec (23.4-35.0) H 07/15/24 04:30
Hemoglobin A1c 7.3 % (4.0-5.6) H 07/14/24 08:15
Total Protein 5.4 g/dl (6.3-8.2) L 07/15/24 04:30
Albumin 2.7 g/dl (3.5-5.0) L 07/15/24 04:30
Urine Color Yellow 07/14/24 02:16
Urine Clarity Clear (Clear) 07/14/24 02:16
Urine pH 5.0 (5.0-9.0) 07/14/24 02:16
Ur Specific Victoria 1.020 (<1.030) 07/14/24 02:16
Urine Ketones Trace (Negative) A 07/14/24 02:16
Urine Bilirubin 1+ (Negative) A 07/14/24 02:16
Palliative Performance Scale
Palliative Performance Scale:
PPS Level Ambulation Activity & Evidence of Disease Self Care Intake Conscious Level
100% Full Normal Activity & Work; Full Intake Full
No Evidence of Disease
90% Full Normal Activity & Work; Full Normal Full
Some Evidence of Disease
80% Full Normal Activity with Effort Full Normal or Full
Some Evidence of Disease Reduced
70% Reduced Unable Normal Job/Work Full Normal or Full
Significant Disease Reduced
60% Reduced Unable Hobby/Housework Occasional Normal or Full or Confusion
Significant Disease Assistance Reduced
50% Mainly Sit/Lie Unable to do Any Work Considerable Normal or Full or Confusion
Extensive Disease Assistance Req'd Reduced
40% Mainly in Bed Unable to do Most Activity Mainly Assistance Normal or Full or Drowsy;
Extensive Disease Reduced +/- Confusion
30% Totally Bed Unable to do Any Activity Total Care Normal or Full or Drowsy;
Bound Extensive Disease Reduced +/- Confusion
20% Totally Bed Bound Unable to do Any Activity Total Care Minimal to Full or Drowsy;
Extensive Disease Sips +/- Confusion
10% Totally Bed Bound Unable to do Any Activity Total Care Mouth Care Drowsy or Coma;
Extensive Disease Only +/- Confusion
0%
PPS Score Level:
[2024-07-15 10:43] LABS: Glucose - Point of Care 112 mg/dl (70-99)
[2024-07-15 10:55] LABS: APTT 115.4 Sec (23.4-35.0)
[2024-07-15] MEDS: PROGRAF 1.5 MG PO (12:39)
[2024-07-15 12:46] LABS: Glucose - Point of Care 53 mg/dl (70-99)
--- NOTE | 2024-07-15 13:10 | PTCARENOTE ---
Pt is still requiring 2mcg of levo to maintain MAP > 65. Q4 PRN lopressor IV ordered for HR > 120. Pt remains NPO, consistently hypoglycemic but IVF are not an option at this time per medical team decision. PRN dextrose given per order to correct
hypoglycemia. Pt continues to void via zabala, remains oriented x4, now requiring HFNC 50L at 70%. See MAR/flowsheets for further care details.
[2024-07-15 13:17] LABS: Glucose - Point of Care 99 mg/dl (70-99)
[2024-07-15] MEDS: SOLU-CORTEF 50 MG IV ×3 (14:32→23:50)
--- NOTE | 2024-07-15 14:51 | CM ---
Patient seen at bedside in ICU with physician. Patient now with high flow O2 and pressors, being followed by Palliative care. Patient code status now DNR. CM will continue to follow for discharge planning needs.
Plan; pending treatment plan
[2024-07-15 15:17] LABS: Glucose - Point of Care 67 mg/dl (70-99)
--- NOTE | 2024-07-15 16:10 | PTCARENOTE ---
Patient had episode of desaturation to 79%, placed on 100% HFNC and stabilized at 97% several minutes later. Finish Machine Tender at bedside to assess patient. Pt denies drinking orange juice/coughing/choking at time of desaturation. Earlier RN observed
adequate po intake with both pills and thin liquids. Plan is to make patient npo with sips of clears and meds, cancel clear liquid diet order. Continuing to observe oxygenation status. Respiratory sputum culture obtained and sent to lab.
Later this shift, pt will stop heparin gtt and be able to take po Eliquis per order. See MAR/flowsheets for further care details.
[2024-07-15 18:03] LABS: Glucose - Point of Care 88 mg/dl (70-99)
[2024-07-15] MEDS: ELIQUIS 5 MG PO (18:19)
[2024-07-15] MEDS: LEVOPHED 250 IV (18:27)
[2024-07-15 19:43] LABS: Glucose - Point of Care 78 mg/dl (70-99)
[2024-07-15] MEDS: CRESTOR 20 MG PO (22:57)
[2024-07-15 23:57] LABS: Glucose - Point of Care 71 mg/dl (70-99)
[2024-07-16] VITALS (58 sets, daily range): BP systolic 76–150; BP diastolic 48–129
--- NOTE | 2024-07-16 00:29 | PTCARENOTE ---
Pt received at 19:00, initial assessment as documented. RT weaned HFNC from 50L/100% to 40L/90%. Pt tolerating. Levophed off, MAP goal maintained.
[2024-07-16 03:15] LABS: Glucose - Point of Care 79 mg/dl (70-99)
[2024-07-16 05:27] LABS: Hemoglobin 12.6 g/dL (13.0-18.0); Mean Corp Hgb Conc. 32.3 g/dL (33.0-37.0); Mean Corpuscular Hgb 28.7 pg (27.0-31.0); Mean Corpuscular Volume 88.8 fL (80.0-94.0); Mean Platelet Volume 11.9 fL (7.4-10.4); Platelet Count 125 10^3/uL (130-400); Red Blood Cell Count 4.39 10^6/uL (4.70-6.10); Red Cell Dist. Width 14.7 % (11.5-14.5); White Blood Cell Count 8.8 10^3/uL (4.8-10.8)
[2024-07-16 05:55] LABS: Blood Urea Nitrogen 58 mg/dl (9-20); Carbon Dioxide 18 mmol/L (22-30); Chloride 105 mmol/L (98-107); Estimated Creatinine Clearance 28 ml/min; Glucose 73 mg/dl (70-99); Magnesium 2.3 mg/dl (1.6-2.3); Potassium 4.4 mmol/L (3.5-5.1); Sodium 137 mmol/L (135-145); eGFR 34.79
[2024-07-16] MEDS: NOVOLOG FLEXPEN-LOW RESISTANCE SC (06:25)
--- NOTE | 2024-07-16 07:33 | W.PN.HOSP.TC ---
Addendum entered and electronically signed by Christie Melara MD 07/16/24 13:43:
CC MX for persistent and worsening hypoxia resp failure
CC time 40 min
Addendum entered and electronically signed by Christie Melara MD 07/16/24 13:42:
I saw and evaluated the patient. I reviewed the resident�s note and agree with findings and plan as documented in the resident�s note.
A/P:
#Acute Hypoxic Respiratory Failure - currently on high flow 100% FiO2 and NRB
Weaning per fire tender and respiratory teams. Possible contributory pneumonia, on abx as below.
#Septic Shock, secondary to infection, intra-abdominal vs. urinary vs. respiratory
(Hypotensive requiring pressure support w/ levophed, tachycardic, tachypneic, leukocytosis, lactic acidosis w/ probably source of infection)
- s/p 1L IVF, likely less than sepsis dosing due to history of heart transplant. CXR showing sm bl pleural effusions.
- COVID negative. Blood Cultures NGx48 hours, UA +, urine culture negative.
- Received one dose of IV Cefepime/Flagyl in ED. Cotinue on Zosyn and Doxy
- pressor Levo resumed 07/16 due to persistent hypotension. Start Midodrine 5 mg TID
- ID following.
#Enteritis/Ileus
#Cecal Colitis
- CT findings suggestive of Enteritis/Ileus w/ Cecal Colitis, no appendicitis. No evidence for bowel ischemia.
- GI consulted, no plans for endoscopy/colonoscopy given current clinical condition. If develops diarrhea can consider stool studies.
- still NPO, developed RUQ abd pain when drinking orange juice. Abd XR showing gaseous distention in the small bowel in the LUQ. CT on 07/13 showed calcified stones in gallbladder. May consider US Abd
- LFTs WNL
- Appreciate GI recs.
#Constipation - has not had BM in the last few days. s/p one dose Miralax. Cont Miralax/Ducolax prn. Appreciate GI recs.
#H/o Heart Failure, s/p Heart transplant 2001 (on chronic immunosuppression)
- There was a discrepancy in dosing; cleared up misunderstanding with the patient who takes 'THREE and TWO' of the 0.5mg tablets, equalling his home doses of 1.5mg and 1mg, respectively.
- c/w tacrolimus & cellcept. Continue w. tacrolimus trough, hold tacrolimus for trough >6. Give if between 4-6.
#Pulmonary Hypertension - recent echo 07/13/24 showing PASP 75-80 mmHg. Management per fire tender/cardiology.
#AAA s/p EVAR w/ endoleak - CT 07/13/24 showing stable endoleak, patent SMA and celiac a. Evaluated by vascular, felt to be stable and noncontributory to presentation.
#COPD - on chronic O2 supplementation at home 8L NC.
#Right Lower Lobe Squamous Cell Carcinoma
#Essential Hypertension - holding metoprolol and enalapril. cardiology following.
#Hypercholesterolemia - c/w gemfibrozil
#IDDM - decreased to 12U basal in the setting of Hypoglycemia
#CKD Stage III - creatinine at baseline. Will continue to monitor.
#History of PE - Off heparin ggt, platelet drop. Back on Eliquis.
Diet - NPO
DVT Ppx - Heparin ggt
Code Status - DNR
Anticipated Discharge: > 48 hours
Original Note:
Today's Communication/Plan
-
C/w Abx. Check LFTs, with possible additional imaging to evaluate for abdominal pathology. Appreciate GI recs. Weaning of ventilation per fire tender/respiratory teams.
Assessment / Plan
Assessment / Plan
83 year old male
#Acute Hypoxic Respiratory Failure - currently on high flow 100% FiO2 @40L. Weaning per fire tender and respiratory teams. Possible contributory pneumonia, on abx as below.
#Septic Shock, secondary to infection, intra-abdominal vs. urinary vs. respiratory
[Hypotensive requiring pressure support w/ levophed, tachycardic, tachypneic, leukocytosis, lactic acidosis w/ probably source of infection]
- s/p 1L IVF, likely less than sepsis dosing due to history of heart transplant. CXR showing sm bl pleural effusions.
- COVID negative. Blood Cultures NGx48 hours, UA +, urine culture negative.
- Received one dose of IV Cefepime/Flagyl in ED. Cotinue on Zosyn. Now on Doxy
- Off pressors now.
- ID following.
#Enteritis/Ileus
#Cecal Colitis
- CT findings suggestive of Enteritis/Ileus w/ Cecal Colitis, no appendicitis. No evidence for bowel ischemia.
- GI consulted, no plans for endoscopy/colonoscopy given current clinical condition. If develops diarrhea can consider stool studies.
- still NPO, developed RUQ abd pain when drinking orange juice. Abd XR showing gaseous distention in the small bowel in the LUQ. CT on 07/13 showed calcified stones in gallbladder. May consider US Abd, will order LFTs. Appreciate GI recs.
#Constipation - has not had BM in the last few days. Ordered one dose Miralax now. Has Miralax/Ducolax prn but has not received yet. Appreciate GI recs.
#H/o Heart Failure, s/p Heart transplant 2001 (on chronic immunosuppression)
- There was a discrepancy in dosing; cleared up misunderstanding with the patient who takes 'THREE and TWO' of the 0.5mg tablets, equalling his home doses of 1.5mg and 1mg, respectively.
- c/w tacrolimus & cellcept. Continue w. tacrolimus trough, hold tacrolimus for trough >6. Give if between 4-6.
#Pulmonary Hypertension - recent echo 07/13/24 showing PASP 75-80 mmHg. Management per fire tender/cardiology.
#AAA s/p EVAR w/ endoleak - CT 07/13/24 showing stable endoleak, patent SMA and celiac a. Evaluated by vascular, felt to be stable and noncontributory to presentation.
#COPD - on chronic O2 supplementation at home 8L NC.
#Right Lower Lobe Squamous Cell Carcinoma
#Essential Hypertension - holding metoprolol and enalapril. cardiology following.
#Hypercholesterolemia - c/w gemfibrozil
#IDDM - decreased to 12U basal in the setting of Hypoglycemia
#CKD Stage III - creatinine at baseline. Will continue to monitor.
#History of PE - Off heparin ggt, platelet drop. Back on Eliquis.
Diet - NPO
DVT Ppx - Heparin ggt
Code Status - DNR
Anticipated Discharge: > 48 hours
Subjective/Interval History
-
Feeling well this morning. Was weaned off Levophed overnight. Attempted to drink orange juice but developed RUQ abdominal pain. Presently he only has pain on movement. He has no new fevers, chills, nausea, vomiting, diarrhea.
Objective Data
-
Labs:
Laboratory Results
07/16/24
04:56
WBC 8.8
Hgb 12.6 L
Hct 39.0
Plt Count 125 L D
Sodium 137
Potassium 4.4
Chloride 105
Carbon Dioxide 18 L
BUN 58 H
Creatinine 1.9 H
Glucose 73
Calcium 8.0 L
Vital Signs:
Vital Signs
Temp Pulse Resp BP Pulse Ox
97.9 F 110 16 105/68 92
07/15/24 19:39 07/16/24 03:45 07/16/24 03:45 07/16/24 03:00 07/16/24 04:00
I&O
07/15/24 07/16/24 07/17/24
06:59 06:59 06:59
Intake Total 1058.5 / 1079.0 426.0 / 426.0
Output Total 310 / 360 495 / 495
Balance 748.5 / 719.0 -69.0 / -69.0
Review of Systems
-
History Source: Patient
Constitutional: Denies Fever, Night Sweats or Chills
EENT: Denies Sore Throat or Runny Nose
Respiratory: Reports Cough and Trouble Breathing; Denies Hemoptysis or Wheezing
Cardiac: Denies Chest Pain, Palpitations or Orthopnea
Abdomen/GI: Reports Abdominal Pain and Constipated; Denies Nausea, Vomiting or Diarrhea
Breast: Reports N/A
Genitourinary: Denies Dysuria or Flank Pain
Musculoskeletal: Denies Joint Pain, Joint Swelling or Muscle Pain
Skin: Denies Itching or Rash
Neuro: Denies Dizzy, Headache or Numbness
Hematologic / Lymphatic: Denies Bleeding
Physical Exam
-
General: Well Developed, No Apparent Distress, Comfortable and Appears Chronically Ill
HEENT: Normocephalic, Atraumatic, Moist Mucous Membranes, [place] Conjunctivae, PERRLA, Nose Appears Normal, Ears Appear Normal and Other (High flow)
Respiratory: Crackles (minimal crackles in the RLL, clear on the Left); Negative Wheezes or Rhonchi
Cardiac: Regular Rhythm, S1/S2 and Tachycardic; Negative Murmur
Breast: N/A
GI: Soft, Nontender and Nondistended; Negative Normal Bowel Sounds
Genito-urinary: Clear Urine and [place]
Musculoskeletal: No Clubbing, No Cyanosis and No Edema
Skin: Warm, Dry and IV Access / Catheter Site
Neuro: AO x 3 and Nonfocal/Grossly Intact
[2024-07-16] MEDS: SPIRIVA RESPIMAT 2.5 MCG 2 PUFF INH (07:35)
[2024-07-16] MEDS: SYMBICORT 80/4.5 MCG INHALER 2 PUFF INH (07:35)
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
--- NOTE | 2024-07-16 08:25 | W.PN.CD ---
Today's Communication / Plan
-
Continue infectious workup and treatment per primary team and infectious diseases
LVEF normal this admission
Cardiology will sign off at this time. Please call back if there is concerned about tacrolimus level when it results.
Impression / Plan
-
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
mellitus, chronic kidney disease, prior PE on lifetime anticoagulation, and dyslipidemia admitted with enteritis/ileitis with septic shock.
#Sepsis/septic shock in an immunocompromised host
-Hypotension, tachycardia, leukocytosis (SIRS criteria) with lactic acidosis (evidence of end organ damage/hypoperfusion) requiring chemical hemodynamic support.
-Source appears to be UTI/GI (+UA, ileus/enteritis on CTA).
-CXR suggests some pneumonitis.
-DDx includes C. diff, and CMV (given large BM, acute presentation, immunocompromise). Difficult to discern pulmonary component given his underlying primary pulmonary disease.
-His normal troponin/hyperdynamic LV is reassuring against cardiogenic shock or acute rejection.
-Lactate has normalized.
-Continue ABX, hemodynamic supportive measures.
- BC neagtive to date
#Abdominal pain
-Acute.
-CTA 07/11/2024 with severe acute enteritis/ileus, progressed on repeat CTA 07/13/2024.
-Check C. diff toxin.
-GI involved. Role for endoscopy/colonoscopy with biopsy? If there is concern for CMV enteritis/colitis, we will either need tissue proof or treat empirically (gancyclovir).
# Heart transplant ( [facility] 2001)
- normal LVF by echo this admit
- tacrolimus level pending
# tachycardia - appears consistent with sinus tachycardia
#Chronic hypoxemic respiratory failure
-Chronic, end stage COPD, on 8 L nasal cannula at baseline.
- patient on high flow
-CXR shows pneumonitis.
-continued tx as per business agent
#End-stage ischemic cardiomyopathy
-Hx of LVAD, followed by OHT ([facility], 2002).
-Echocardiogram shows hyperdynamic LV function.
-Check tacrolimus/mycophenolate levels.
#Pulmonary hypertension, severe
-Chronic.
-WHO group 3 (?) vs. 4 given known VTE vs. 5 (multifactorial).
-Stable on TTE.
-RV dilated with mildly reduced function.
#AAA
-Chronic, s/p EVAR complicated by endoleak.
-CT 07/11/2024 showed no acute changes with suspected persistent type II endoleak, re-confirmed on CTA 07/13/2024.
-Vascular surgery has been involved. No evidence of vascular source of abdominal pain (no mesenteric/bowel ischemia).
#CKD,creatinine 1.6 monitor
#Type 2 diabetes mellitus, per primary
#Squamous cell carcinoma stage IIIa, right lower lobe, s/p XRT, PET avid, following with Drs. Craig & Consuelo
Primary inpatient pharmacist: Dr. Helm
Subjective/Interval History:
Patient feels improved today
DATA:
CXR, 07/13/2024:
IMPRESSION:
Suspect mild CHF and pneumonitis.
Small left pleural effusion with associated atelectasis or pneumonia.
CTA Abdomen/Pelvis, 07/13/2024:
IMPRESSION:
1. Grossly stable diffuse enteritis/ileus. No cristy obstruction. No overt CT evidence for bowel ischemia.
2. Probable reactive cecal colitis, progressed. The appendix is seen arising from the medial aspect of this inflamed portion of cecum, without overt evidence for acute appendicitis.
3. Small volume abdominopelvic ascites, slightly improved.
4. Small bilateral pleural effusions, stable on the left and slightly improved on the right, with associated bilateral lower lobe pleural-based consolidation which may reflect a combination of rounded atelectasis and pneumonia.
TTE, 07/13/2024:
CONCLUSIONS
Normal LV size with hyperdynamic function.
Left ventricular ejection fraction is 70-75% by visual estimation.
Enlarged RV with mildly reduced function.
Moderate LA dilation. Mild RA dilation.
No significant valvular abnormalities.
Severely elevated PASP 75-80 mmHg
Compared to the prior study of 03/01/2024, LV function is more hyperdynamic on
the present study and there are otherwise no significant changes.
Physical Exam
Vital Signs/Labs
Vital Signs
Temp Pulse Resp BP Pulse Ox
97.8 F 115 20 105/68 91
07/16/24 08:01 07/16/24 07:36 07/16/24 07:36 07/16/24 03:00 07/16/24 07:36
07/15/24 07/16/24 07/17/24
06:59 06:59 06:59
Actual Weight 66.9 kg
07/16/24 04:56
07/16/24 04:56
APTT Cancelled 07/15/24 17:30
Magnesium 2.3 mg/dl (1.6-2.3) 07/16/24 04:56
07/13/24 07/13/24
10:04 10:51
Eoa-P-Kkqqzhpllzz Pept Cancelled 3250
LAB Results
07/13/24 07/13/24
10:04 10:51
Troponin I Cancelled < 0.012
Physical Exam
Constitutional: No acute distress and Comfortable
Cardiovascular: Rhythm & rate is regular, Pedal edema is absent, S1S2 is normal and Murmur/rub/gallop absent
Respiratory: Respiratory effort normal
Data Reviewed
-
Date of Service: July 16, 2024
Medical Decision Making: Reviewed Test Results, Independent Historian Assessment, Test Interpretation and Review of Case with other Provider
EKG: Tracing Personally Visualized and interpreted
Echo: Report Reviewed by me
Labs: Labs Reviewed by me
[2024-07-16 08:38] LABS: ALT (SGPT) < 10 U/L (0-50); AST (SGOT) 18 U/L (17-59); Albumin 2.5 g/dl (3.5-5.0); Alkaline Phosphatase 89 U/L (38-126); Direct Bilirubin 0.7 mg/dl (0.0-0.4); Total Protein 5.1 g/dl (6.3-8.2)
[2024-07-16] MEDS: MIRALAX 17 GRAMS PO (09:06)
[2024-07-16] MEDS: ZOSYN 50 IV ×4 (09:06→23:04)
[2024-07-16] MEDS: CELLCEPT 750 MG PO ×2 (09:07→19:50)
[2024-07-16] MEDS: PROGRAF 1.5 MG PO (09:08)
[2024-07-16] MEDS: NEURONTIN 300 MG PO ×3 (09:08→22:52)
[2024-07-16] MEDS: SYNTHROID 175 MCG PO (09:09)
[2024-07-16] MEDS: LOPID 600 MG PO ×2 (09:09→19:51)
[2024-07-16] MEDS: SOLU-CORTEF 50 MG IV ×4 (09:09→23:06)
[2024-07-16] MEDS: ELIQUIS 5 MG PO ×2 (09:09→19:51)
[2024-07-16] MEDS: VIBRAMYCIN 100 MG PO ×2 (09:09→19:51)
--- NOTE | 2024-07-16 10:00 | W.PN.ID1 ---
Date of Service
Date of Service: July 16, 2024
Today's Communication
- c/w zosyn
- c/w doxycycline
Assessment / Plan
Shock Likely Septic - possibly improving
Acute hypoxemic resp failure - baseline O2 requirement 8L
Enteritis/ileus
Heart Transplantation 2001
Immunosuppression
Pulmonary HTN - end stage
Possible pneumonia
BHUMI on CKD
- blood cultures x2 no growth to date
- sputum sample likely contaminated
- c/w zosyn
- c/w doxycycline
- patient is critically ill with a very high burden of pre-existing disease, medium term prognosis poor
Chief Complaint
-: Other (shock, enteritis; immunosuppression)
Subjective / Review of Systems
afebrile
bp stable pressors weaned off last night
HFNC weaned from 50L/100% to 40L/100% - when transferred to chair desaturated and high flow mask added to high flow NC
Vital Signs / Physical Exam
Vital Signs
Vital Signs
Temp Pulse Resp BP Pulse Ox
97.8 F 115 20 105/68 91
07/16/24 08:01 07/16/24 07:36 07/16/24 07:36 07/16/24 03:00 07/16/24 07:36
Physical Exam
Constitutional: No Acute Distress and Chronically Ill
Cardiovascular: Regular Rate and S1/S2; Negative Murmur or Rub
Pulmonary: Clear and Symmetric; Negative Wheezes or Rales
Gastrointestinal: Soft, Non Tender, Non Distended and Normal Bowel Sounds
Skin: Warm and Dry; Negative Rash or Jaundice
Psychological: Calm
Objective Data
Lab Data
Lab Results
07/16/24 04:56
07/16/24 04:56
APTT Cancelled 07/15/24 17:30
Estimated Creat Clear 28 ml/min 07/16/24 04:56
Lactic Acid Cancelled 07/13/24 23:20
Total Bilirubin 1.0 mg/dl (0.2-1.3) 07/16/24 04:56
AST 18 U/L (17-59) 07/16/24 04:56
ALT < 10 U/L (0-50) 07/16/24 04:56
Alkaline Phosphatase 89 U/L (38-126) 07/16/24 04:56
Most recent labs reviewed.
AXR no dilatation
Micro Results:
07/15/24 15:37 Respiratory Culture - Pending
Sputum Gram Stain - Preliminary
07/14/24 02:16 Urine Culture - Final
Urine No Significant Growth
07/13/24 10:04 Blood Culture - Preliminary
Blood/Venous No Growth in 48 hours- Final report to follow
07/13/24 10:04 Blood Culture - Preliminary
Blood/Venous No Growth in 48 hours- Final report to follow
[2024-07-16] MEDS: ProAmatine 5 MG PO ×3 (10:49→17:08)
[2024-07-16 10:59] LABS: Glucose - Point of Care 109 mg/dl (70-99)
[2024-07-16 12:13] LABS: Glucose - Point of Care 170 mg/dl (70-99)
[2024-07-16] MEDS: NOVOLOG FLEXPEN-LOW RESISTANCE 1 UNITS SC (13:23)
--- NOTE | 2024-07-16 13:39 | W.PN.PAL2 ---
Today's Communication
-
Patient unable to converse today due to hypoxia. limited visit. was observed seated in chair, informed that whenever he tried to eat his meal, his oxygen numbers would drop. currently holding NRB over high flow oxygen. appears comfortable
otherwise. HR 129. Unfortunatley if not showing signs of improvement with respiratory status over next few days, then will need to revisit hospice care discussion.
PC will continue to follow. Code status DNR>
Objective Data
-
Objective Data:
Vital Signs
Temp Pulse Resp BP Pulse Ox
97.8 F 131 20 105/79 94
07/16/24 11:50 07/16/24 13:24 07/16/24 07:36 07/16/24 13:24 07/16/24 12:18
Laboratory Results
07/16/24 04:56
07/16/24 04:56
APTT Cancelled 07/15/24 17:30
Hemoglobin A1c 7.3 % (4.0-5.6) H 07/14/24 08:15
Total Protein 5.1 g/dl (6.3-8.2) L 07/16/24 04:56
Albumin 2.5 g/dl (3.5-5.0) L 07/16/24 04:56
Urine Color Yellow 07/14/24 02:16
Urine Clarity Clear (Clear) 07/14/24 02:16
Urine pH 5.0 (5.0-9.0) 07/14/24 02:16
Ur Specific [place] 1.020 (<1.030) 07/14/24 02:16
Urine Ketones Trace (Negative) A 07/14/24 02:16
Urine Bilirubin 1+ (Negative) A 07/14/24 02:16
Palliative Performance Scale
Palliative Performance Scale:
PPS Level Ambulation Activity & Evidence of Disease Self Care Intake Conscious Level
100% Full Normal Activity & Work; Full Intake Full
No Evidence of Disease
90% Full Normal Activity & Work; Full Normal Full
Some Evidence of Disease
80% Full Normal Activity with Effort Full Normal or Full
Some Evidence of Disease Reduced
70% Reduced Unable Normal Job/Work Full Normal or Full
Significant Disease Reduced
60% Reduced Unable Hobby/Housework Occasional Normal or Full or Confusion
Significant Disease Assistance Reduced
50% Mainly Sit/Lie Unable to do Any Work Considerable Normal or Full or Confusion
Extensive Disease Assistance Req'd Reduced
40% Mainly in Bed Unable to do Most Activity Mainly Assistance Normal or Full or Drowsy;
Extensive Disease Reduced +/- Confusion
30% Totally Bed Unable to do Any Activity Total Care Normal or Full or Drowsy;
Bound Extensive Disease Reduced +/- Confusion
20% Totally Bed Bound Unable to do Any Activity Total Care Minimal to Full or Drowsy;
Extensive Disease Sips +/- Confusion
10% Totally Bed Bound Unable to do Any Activity Total Care Mouth Care Drowsy or Coma;
Extensive Disease Only +/- Confusion
0%
PPS Score Level:
[2024-07-16 14:04] LABS: Fibrinogen 654 MG/DL (199-459); INR 1.53; PT 18.7 Sec (11.4-14.6)
[2024-07-16 15:46] LABS: Glucose - Point of Care 123 mg/dl (70-99)
--- NOTE | 2024-07-16 16:00 | PTCARENOTE ---
pt continues on HFNC with NRBM his sats are now 90s , his Levophed was stopped at 1600, he was started on midodrine for his blood pressure , he continues to tolerate clear liquid diet
--- NOTE | 2024-07-16 16:07 | CM ---
Patient seen by palliative care, patient on high flow O2. Patient family supportive. Pending functional status and medical treatment plan, patient may benefit from SNF, PT attempted to see but was unable due to medical needs. CM will continue to
follow for discharge planning needs.
Plan; SNF vs Acute Care: pending medical treatment plan
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
[2024-07-16] MEDS: LOPRESSOR 5 MG IV (17:09)
[2024-07-16] MEDS: NOVOLOG FLEXPEN-LOW RESISTANCE 2 UNITS SC (17:49)
[2024-07-16 17:59] LABS: Glucose - Point of Care 222 mg/dl (70-99)
[2024-07-16 18:59] LABS: Urine Sodium 31 mmol/L (30-90)
--- NOTE | 2024-07-16 20:02 | PTCARENOTE ---
pt awake and alert , pleasant , on HFNC 55L and 100% originally with sat of 93 % he was placed oob into chair and required more oxygen requirements , he was given a NRBM with the HFNC to keep sats > 90% , he is now tolerating smalll amt of clear
liquids without difficulty . His blood pressure dropped to the 80s , he was placed back on Levophed at 2mcg
--- NOTE | 2024-07-16 20:30 | PTCARENOTE ---
Assumed care of pt at 1900. Pt is A/O x4, pleasant and cooperative with care. Received pt on double concentrated Levophed at 14mcg/min. SR on monitor, SpO2 94% on RA. See nursing shift assessment flowsheet for full physical assessment details.
[2024-07-16] MEDS: SYMBICORT 80/4.5 MCG INHALER INH ×2 (20:48→20:51)
--- NOTE | 2024-07-16 21:00 | PTCARENOTE ---
Assumed care of pt at 1900. Pt is A/O x4, pleasant and cooperative with care. Pt on HFNC 100% 55LPM + NRB mask, sats in mid 90s. ST on monitor, 100s-120s. Pt remains off Levophed. See nursing shift assessment flowsheet for full physical assessment
details.
[2024-07-16 22:11] LABS: Glucose - Point of Care 267 mg/dl (70-99)
[2024-07-16] MEDS: CRESTOR 20 MG PO (22:52)
[2024-07-16] MEDS: NOVOLOG FLEXPEN-LOW RESISTANCE 3 UNITS SC (22:53)
[2024-07-16] MEDS: PROGRAF 1 MG PO (22:53)
[2024-07-17] VITALS (26 sets, daily range): BP systolic 71–140; BP diastolic 55–94; O2SAT 84; BMI 21.7
[2024-07-17] MEDS: LOPRESSOR IV (00:14)
--- NOTE | 2024-07-17 00:22 | PTCARENOTE ---
Midnight assessment unchanged. Pt on HFNC at same settings, NRB mask has been off since around 2300 and pt is maintaining SpO2 at 97%. HR in low 100s, did not meet parameters to receive scheduled dose of Lopressor due to BP. CHG cloth bath done at
bedtime.
[2024-07-17] MEDS: SOLU-CORTEF 50 MG IV ×2 (05:20→11:57)
[2024-07-17] MEDS: ZOSYN 50 IV ×3 (05:20→16:59)
[2024-07-17] MEDS: SYNTHROID 175 MCG PO (05:20)
[2024-07-17 05:52] LABS: Blood Urea Nitrogen 73 mg/dl (9-20); Calcium 7.6 mg/dl (8.4-10.2); Carbon Dioxide 17 mmol/L (22-30); Chloride 105 mmol/L (98-107); Estimated Creatinine Clearance 23 ml/min; Glucose 207 mg/dl (70-99); Potassium 4.2 mmol/L (3.5-5.1); Sodium 137 mmol/L (135-145); eGFR 27.66
[2024-07-17 06:07] LABS: Hemoglobin 12.8 g/dL (13.0-18.0); Mean Corp Hgb Conc. 32.8 g/dL (33.0-37.0); Mean Corpuscular Hgb 28.9 pg (27.0-31.0); Platelet Count 157 10^3/uL (130-400); Red Blood Cell Count 4.43 10^6/uL (4.70-6.10); Red Cell Dist. Width 14.7 % (11.5-14.5); White Blood Cell Count 9.7 10^3/uL (4.8-10.8)
[2024-07-17] MEDS: NOVOLOG FLEXPEN-LOW RESISTANCE 2 UNITS SC ×2 (06:15→10:28)
[2024-07-17] MEDS: LOPRESSOR 5 MG IV ×3 (06:23→16:59)
--- NOTE | 2024-07-17 06:38 | PTCARENOTE ---
0400 assessment unchanged. Pt maintaining SpO2 on HFNC without NRB. Pt has been resting with eyes closed.
--- NOTE | 2024-07-17 06:59 | W.PN.HOSP.TC ---
Addendum entered and electronically signed by Loreta Guillaume MD 07/17/24 13:58:
I saw and evaluated the patient independently. I reviewed the resident�s note and agree with findings and plan as documented by Dr. Garcia.
GENERAL: chronically ill appearing male in no apparent distress
HEENT: NC/AT--HI BHARATHI O2
HEART: regular rate and rhythm, +S1, +S2
LUNGS : clear to auscultation bilaterally
ABDOM: soft, tender diffusely without guarding or rebound, nondistended, + bowel sounds
EXT: no cyanosis, clubbing, or edema
NEUROLOGIC: grossly intact
: zabala with hematuria
Septic Shock with pressor requirements (now off)-- also with acute on chronic hypoxemic respiratory failure (8L O2 baseline at home)--likely secondary to infection but source unclear?enteritis/ileitis--only positive culture is resp with Zeinab--off
IVF--but still on HI BHARATHI O2 (pt has pulm HTN, COPD, ILD per pulm)--cont zosyn/doxy--apprec ID since immunosuppressed- COVID negative
Enteritis/Ileus/Cecal Colitis- CT findings suggestive of Enteritis/Ileus w/ Cecal Colitis, no appendicitis. No evidence for bowel ischemia apprec GI-- no plans for endoscopy/colonoscopy given current clinical condition--advance diet per GI
H/o Heart Failure, s/p Heart transplant 2001 (on chronic immunosuppression)- c/w tacrolimus & cellcept
Pulmonary Hypertension - recent echo 07/13/24 showing PASP 75-80 mmHg.
AAA s/p EVAR w/ endoleak - CT 07/13/24 showing stable endoleak, patent SMA and celiac a. Vascular following.
COPD - on chronic O2 supplementation at home 8L NC--on HI BHARATHI-- Oxygen support and weaning per warp hand team.
Right Lower Lobe Squamous Cell Carcinoma
Essential Hypertension - holding metoprolol and enalapril. cardiology following.
Hypercholesterolemia - c/w gemfibrozil
IDDM - c/w Glargine 12U BID & novolog AC
CKD Stage III - creatinine at baseline. Will continue to monitor.
History of PE -restart Eliquis--stop heparin drip
DVT Ppx - Heparin ggt
Code Status - DNR
patient current with palliative care--apprec input
transfer to IMU
Total Critical Care Time 32 minutes. I was immediately available to the patient and staff. I personally examined, reviewed labs, diagnostic images/reports, interpretations, treatment plans, discussed patient care with other providers and family
or caregivers (if patient is unable to make decisions), entered orders as appropriate and documented the medical record.
Original Note:
Today's Communication/Plan
-
Downgrade to IMU, continue to wean O2 as able. Observe BPs on midodrine.
Assessment / Plan
Assessment / Plan
83 year old male
#Acute Hypoxic Respiratory Failure - currently on high flow 100% FiO2 @55L. Weaning per warp hand and respiratory teams. Possible contributory pneumonia, on abx as below.
#Septic Shock, secondary to infection, intra-abdominal vs. urinary vs. respiratory
[Hypotensive requiring pressure support w/ levophed, tachycardic, tachypneic, leukocytosis, lactic acidosis w/ probably source of infection]
- s/p 1L IVF, likely less than sepsis dosing due to history of heart transplant. CXR showing sm bl pleural effusions.
- COVID negative. Blood Cultures NGx48 hours, UA +, urine culture negative.
- Received one dose of IV Cefepime/Flagyl in ED. Cotinue on Zosyn. Now on Doxy
- Off pressors now, on midodrine 5mg TID.
- ID following.
#Enteritis/Ileus
#Cecal Colitis
- CT findings suggestive of Enteritis/Ileus w/ Cecal Colitis, no appendicitis. No evidence for bowel ischemia.
- GI consulted, no plans for endoscopy/colonoscopy given current clinical condition. If develops diarrhea can consider stool studies.
- Abd XR showing gaseous distention in the small bowel in the LUQ. CT on 07/13 showed calcified stones in gallbladder.
- advance to Full liquids
- Appreciate GI recs.
#Constipation (resolved) - Had bowel movements. C/w Miralax/Ducolax prn.
#H/o Heart Failure, s/p Heart transplant 2001 (on chronic immunosuppression)
- There was a discrepancy in dosing; cleared up misunderstanding with the patient who takes 'THREE and TWO' of the 0.5mg tablets, equalling his home doses of 1.5mg and 1mg, respectively.
- c/w tacrolimus & cellcept. Continue w. tacrolimus trough, hold tacrolimus for trough >6. Give if between 4-6.
#Pulmonary Hypertension - recent echo 07/13/24 showing PASP 75-80 mmHg. Management per warp hand/cardiology.
#AAA s/p EVAR w/ endoleak - CT 07/13/24 showing stable endoleak, patent SMA and celiac a. Evaluated by vascular, felt to be stable and noncontributory to presentation.
#COPD - on chronic O2 supplementation at home 8L NC.
#Right Lower Lobe Squamous Cell Carcinoma
#Essential Hypertension - holding metoprolol and enalapril. cardiology following.
#Hypercholesterolemia - c/w gemfibrozil
#IDDM - holding basal insulin for now as he is not eating enough. Will control Blood glucose with LDISS and re-evaluate as his oral intake improves.
#CKD Stage III - creatinine at baseline. Will continue to monitor.
#History of PE - Off heparin ggt, platelet drop. Back on Eliquis.
Diet - Full Liquids
DVT Ppx - Eliquis.
Code Status - DNR
Anticipated Discharge: > 48 hours
Subjective/Interval History
-
No acute complaints this morning. Had several bowel movements last night. No new fevers or chills.
Objective Data
-
Labs:
Laboratory Results
07/17/24
05:19
WBC 9.7
Hgb 12.8 L
Hct 39.0
Plt Count 157 D
Sodium 137
Potassium 4.2
Chloride 105
Carbon Dioxide 17 L
BUN 73 H
Creatinine 2.3 H
Glucose 207 H
Calcium 7.6 L
Vital Signs:
Vital Signs
Temp Pulse Resp BP Pulse Ox
97.6 F 85 16 116/86 94
07/17/24 03:30 07/17/24 06:30 07/17/24 06:30 07/17/24 06:23 07/17/24 06:30
I&O
07/15/24 07/16/24 07/17/24
06:59 06:59 06:59
Intake Total 1058.5 / 1079.0 426.0 / 426.0 992.5 / 992.5
Output Total 310 / 360 495 / 495 722 / 722
Balance 748.5 / 719.0 -69.0 / -69.0 270.5 / 270.5
Review of Systems
-
History Source: Patient
Constitutional: Denies Fever or Chills
Respiratory: Reports Trouble Breathing; Denies Cough, Wheezing or Pleurisy
Cardiac: Denies Chest Pain, Palpitations or Syncope
Abdomen/GI: Denies Abdominal Pain, Nausea, Vomiting or Diarrhea
Genitourinary: Denies Flank Pain
Musculoskeletal: Reports No Symptoms
Skin: Reports No Symptoms
Neuro: Reports No Symptoms
Physical Exam
-
General: Well Developed, Well Nourished, No Apparent Distress and Appears Chronically Ill
HEENT: Normocephalic, Atraumatic, Moist Mucous Membranes, Anicteric, [place] Conjunctivae, Nose Appears Normal and Ears Appear Normal
Respiratory: Crackles (LLL inspiratory); Negative Wheezes or Rhonchi
Cardiac: Regular Rhythm and S1/S2; Negative Murmur
GI: Soft, Nontender, Nondistended and Normal Bowel Sounds
Genito-urinary: Clear Urine and Zabala
Musculoskeletal: No Clubbing, No Cyanosis and No Edema
Skin: Warm, Dry and IV Access / Catheter Site
Neuro: AO x 3
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
[2024-07-17] MEDS: PROGRAF 1.5 MG PO (07:42)
[2024-07-17] MEDS: ProAmatine 5 MG PO ×3 (07:42→16:59)
[2024-07-17] MEDS: VIBRAMYCIN 100 MG PO ×2 (07:42→19:56)
[2024-07-17] MEDS: CELLCEPT 750 MG PO ×2 (07:42→19:56)
[2024-07-17] MEDS: ELIQUIS 5 MG PO (07:44)
[2024-07-17] MEDS: NEURONTIN 300 MG PO ×3 (07:44→22:20)
[2024-07-17] MEDS: LOPID 600 MG PO ×2 (07:45→19:56)
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
--- NOTE | 2024-07-17 08:10 | PTCARENOTE ---
Addendum entered by Eleanor Hill RN 07/17/24 09:19:
patient with intermittent visual hallucinations, seeing people in the room. remains drowsy, refusing breakfast. requests to sleep. bed alarm activated
Original Note:
report received, assessments per work list. patient drowsy, initially disoriented when awakening, but reoriented easily. zabala in place, draining tea colored bloody urine. Gi, mortgage loan coordinator and hospitalist resident at bedside. high flow maintained,
coarse nonproductive cough. call moura in reach
[2024-07-17] MEDS: SYMBICORT 80/4.5 MCG INHALER 2 PUFF INH ×2 (08:25→20:01)
[2024-07-17] MEDS: SPIRIVA RESPIMAT 2.5 MCG 2 PUFF INH (08:25)
[2024-07-17] MEDS: PROTONIX 40 MG PO (09:14)
[2024-07-17 10:37] LABS: Glucose - Point of Care 216 mg/dl (70-99)
--- NOTE | 2024-07-17 10:44 | W.PN.ID1 ---
Date of Service
Date of Service: July 17, 2024
Today's Communication
- c/w zosyn for now, anticipate eventual transition to oral therapy
- c/w doxycycline x5 day
- patient is critically ill with a very high burden of pre-existing disease, with some interval improvement, medium term prognosis poor
Assessment / Plan
Shock - resolved
Acute hypoxemic resp failure - baseline O2 requirement 8L
Enteritis/ileus
Heart Transplantation 2001
Immunosuppression
Pulmonary HTN - end stage
Possible pneumonia
BHUMI on CKD - progressing
- blood cultures x2 no growth to date
- sputum sample - zeinab albicans - usual resp bianca
- c/w zosyn for now, anticipate eventual transition to oral therapy
- c/w doxycycline x5 day
- patient is critically ill with a very high burden of pre-existing disease, with some interval improvement, medium term prognosis poor
Chief Complaint
-: Other (shock, enteritis; immunosuppression)
Subjective / Review of Systems
remains afebrile
pressors off
remains on high flow NC now 55L and 90%
intermittent visual hallucinations reported by staff
pleasant and conversant on my exam
Vital Signs / Physical Exam
Vital Signs
Vital Signs
Temp Pulse Resp BP Pulse Ox
97.4 F 96 17 103/76 92
07/17/24 08:00 07/17/24 09:45 07/17/24 09:45 07/17/24 09:00 07/17/24 09:49
Physical Exam
Constitutional: Chronically Ill
Cardiovascular: Regular Rate and S1/S2; Negative Murmur or Rub
Pulmonary: Clear and Symmetric; Negative Wheezes or Rales
Gastrointestinal: Soft, Non Tender, Non Distended and Normal Bowel Sounds
Skin: Warm and Dry; Negative Rash or Jaundice
Objective Data
Lab Data
Lab Results
07/17/24 05:19
07/17/24 05:19
PT 18.7 Sec (11.4-14.6) H 07/16/24 13:38
INR 1.53 07/16/24 13:38
APTT Cancelled 07/15/24 17:30
Estimated Creat Clear 23 ml/min 07/17/24 05:19
Lactic Acid Cancelled 07/13/24 23:20
Total Bilirubin 1.0 mg/dl (0.2-1.3) 07/16/24 04:56
AST 18 U/L (17-59) 07/16/24 04:56
ALT < 10 U/L (0-50) 07/16/24 04:56
Alkaline Phosphatase 89 U/L (38-126) 07/16/24 04:56
Most recent labs reviewed.
Micro Results:
07/13/24 10:04 Blood Culture - Preliminary
Blood/Venous No Growth in 4 days- Final report to follow
07/13/24 10:04 Blood Culture - Preliminary
Blood/Venous No Growth in 4 days- Final report to follow
07/15/24 15:37 Respiratory Culture - Final
Sputum Zeinab albicans
Gram Stain - Final
07/14/24 02:16 Urine Culture - Final
Urine No Significant Growth
--- NOTE | 2024-07-17 12:03 | W.PN.NEPH.PH ---
Today's Communication / Plan
-
follow labs
Assessment/Plan
-
Assessment
BHUMI CKD3-baseline cr 1.3-1.5
Hypotension
Pneumonia
Enteritis
AAA, EVAR, type II endoleak
Diabetes mellitus type 2
Orthotopic heart transplant
COPD
Plan
BHUMI-UA microhematuria with zabala
Cause of BHUMI likely from hypotension, sepsis, contrast exposure, Fena 0.2 low. barely non oliguric
met acidosis, add po bicarb
wt is up and given his tenuous resp status not planning IVF
Discussed with patient and family regarding BHUMI as well as course and history of BHUMI. Hopefully he will begin to plateau in the next few days.
We discussed the possibly of dialysis if renal function worsens further -pt not made decision yet
Maintain Zabala catheter for now
On midodrine to maintain mean arterial pressure
high risk encounter
-
-
Date of Service: July 17, 2024
CC / HPI / ROS
-
Chief Complaint:
BHUMI
History of Present Illness:
cr con to increase to 2.3
barely non oliguric with zabala
wt no change, BP soft on midodrine
on high flow O2
Review of Systems:
no pain or n/v
no fever
Labs
-
Labs:
WBC 9.7 10^3/uL (4.8-10.8) 07/17/24 05:19
RBC 4.43 10^6/uL (4.70-6.10) L 07/17/24 05:19
Hgb 12.8 g/dL (13.0-18.0) L 07/17/24 05:19
Hct 39.0 % (39.0-52.0) 07/17/24 05:19
Plt Count 157 10^3/uL (130-400) D 07/17/24 05:19
Sodium 137 mmol/L (135-145) 07/17/24 05:19
Potassium 4.2 mmol/L (3.5-5.1) 07/17/24 05:19
Chloride 105 mmol/L (98-107) 07/17/24 05:19
Carbon Dioxide 17 mmol/L (22-30) L 07/17/24 05:19
BUN 73 mg/dl (9-20) H 07/17/24 05:19
Creatinine 2.3 mg/dL (0.7-1.3) H 07/17/24 05:19
eGFR 27.66 07/17/24 05:19
Glucose 207 mg/dl (70-99) H 07/17/24 05:19
Calcium 7.6 mg/dl (8.4-10.2) L 07/17/24 05:19
Cwu-T-Wzujqjvcjcs Pept 3250 pg/ml 07/13/24 10:51
Albumin 2.5 g/dl (3.5-5.0) L 07/16/24 04:56
Physical Exam
-
Vital Signs:
Vital Signs
Temp Pulse Resp BP Pulse Ox
97.4 F 115 17 103/65 92
07/17/24 08:00 07/17/24 11:57 07/17/24 09:45 07/17/24 11:57 07/17/24 09:49
Cardiovascular:: Regular rate and rhythm (tachy)
Respiratory:: Bilateral: Coarse
Lung Excursion:: Normal
Abdomen:: Nontender and Soft
Extremity Edema:: None: Bilateral:
Zabala Catheter: Yes
[2024-07-17] MEDS: FLOMAX 0.4 MG PO (13:01)
[2024-07-17] MEDS: AYR SALINE NASAL GEL 1 APPLIC NASAL (15:09)
--- NOTE | 2024-07-17 15:30 | PTCARENOTE ---
patient downgrade to IMU level of care. tolerating slow wean of oxygen. poor po intake but tolerating supplements as ordered. oob to chairX4 hours. 2 loose stools today on bedside commode. increased hematuria, hospitalist and resident notified by
tiger text. orders pending
[2024-07-17] MEDS: SODIUM BICARBONATE 650 MG PO ×2 (16:01→22:20)
--- NOTE | 2024-07-17 16:52 | PTCARENOTE ---
Addendum entered by Eleanor Hill RN 07/17/24 17:35:
informed of venous glucose result. orders pending
Original Note:
accucheck 'high' stat glucose sent. hospitalist notified by tiger text
[2024-07-17 16:53] LABS: Glucose - Point of Care 433 mg/dl (70-99)
[2024-07-17 17:21] LABS: Glucose 433 mg/dl (70-99)
[2024-07-17] MEDS: NOVOLOG FLEXPEN-LOW RESISTANCE SC (17:41)
[2024-07-17] MEDS: NOVOLOG FLEXPEN-MODERATE RESISTANCE 11 UNITS SC (17:47)
--- NOTE | 2024-07-17 21:26 | PTCARENOTE ---
Assumed care of pt. approx 1900.
Resting in bed, on HHF. [id number].
Victoria producing hematuria, decreased u o/p.
Hemodynamically stable.
All care explained, questions answered.
[2024-07-17] MEDS: CRESTOR 20 MG PO (22:19)
[2024-07-17] MEDS: PROGRAF 1 MG PO (22:20)
[2024-07-17] MEDS: LANTUS 0.18 UNITS SC (22:23)
[2024-07-17 22:33] LABS: Glucose - Point of Care 247 mg/dl (70-99)
[2024-07-18] VITALS (13 sets, daily range): BP systolic 111–151; BP diastolic 76–107; BMI 21.6
[2024-07-18] MEDS: SOLU-CORTEF 50 MG IV ×4 (00:16→23:40)
[2024-07-18] MEDS: LOPRESSOR 5 MG IV ×5 (00:16→23:40)
[2024-07-18] MEDS: ZOSYN 50 IV ×5 (00:17→23:40)
[2024-07-18 04:10] LABS: % Basophils 0.1 % (0-2); % Immature Granulocytes 0.7 % (0-0.5); % Lymphocytes 14.5 % (20.5-51.1); % Monocytes 12.8 % (1.7-9.3); % Neutrophils 71.9 % (42.2-75.2); Absolute Immature Granulocytes 0.1 10^3/uL (0-0.05); Absolute Lymphocytes 1.4 10^3/uL (1.2-3.4); Absolute Monocytes 1.2 10^3/uL (0.1-0.6); Absolute Neutrophils 6.7 10^3/uL (1.4-6.5); Hematocrit 38.4 % (39.0-52.0); Hemoglobin 12.9 g/dL (13.0-18.0); Mean Corp Hgb Conc. 33.6 g/dL (33.0-37.0); Mean Corpuscular Hgb 28.9 pg (27.0-31.0); Mean Corpuscular Volume 85.9 fL (80.0-94.0); Mean Platelet Volume 11.4 fL (7.4-10.4); Nucleated Red Blood Cells % 0 % (-); Platelet Count 127 10^3/uL (130-400); Red Blood Cell Count 4.47 10^6/uL (4.70-6.10); Red Cell Dist. Width 14.5 % (11.5-14.5); White Blood Cell Count 9.4 10^3/uL (4.8-10.8)
[2024-07-18 04:34] LABS: ALT (SGPT) < 10 U/L (0-50); AST (SGOT) 20 U/L (17-59); Albumin 2.8 g/dl (3.5-5.0); Alkaline Phosphatase 67 U/L (38-126); Blood Urea Nitrogen 78 mg/dl (9-20); Calcium 7.8 mg/dl (8.4-10.2); Carbon Dioxide 17 mmol/L (22-30); Chloride 105 mmol/L (98-107); Estimated Creatinine Clearance 26 ml/min; Glucose 127 mg/dl (70-99); Potassium 3.7 mmol/L (3.5-5.1); Sodium 135 mmol/L (135-145); Total Bilirubin 0.9 mg/dl (0.2-1.3); Total Protein 5.5 g/dl (6.3-8.2); eGFR 30.85
[2024-07-18] MEDS: SYNTHROID 175 MCG PO (05:27)
--- NOTE | 2024-07-18 06:29 | W.PN.HOSP.TC ---
Addendum entered and electronically signed by Loreta Guillaume MD 07/18/24 13:59:
I saw and evaluated the patient independently. I reviewed the resident�s note and agree with findings and plan as documented by Dr. Garcia.
GENERAL: chronically ill appearing male in no apparent distress
HEENT: NC/AT--HI BHARATHI O2
HEART: regular rate and rhythm, +S1, +S2
LUNGS : clear to auscultation bilaterally
ABDOM: soft, tender diffusely without guarding or rebound, nondistended, + bowel sounds
EXT: no cyanosis, clubbing, or edema
NEUROLOGIC: grossly intact
: zabala with hematuria
Septic Shock with pressor requirements (now off)-- also with acute on chronic hypoxemic respiratory failure (8L O2 baseline at home)--likely secondary to infection but source unclear?enteritis/ileitis--only positive culture is resp with Zeinab--off
IVF--but still on HI BHARATHI O2 (pt has pulm HTN, COPD, ILD per pulm), will be difficult to get pt off HI BHARATHI--cont zosyn/doxy until completed--apprec ID since immunosuppressed- COVID negative
Enteritis/Ileus/Cecal Colitis- CT findings suggestive of Enteritis/Ileus w/ Cecal Colitis, no appendicitis. No evidence for bowel ischemia apprec GI-- no plans for endoscopy/colonoscopy given current clinical condition--advance diet per GI--resolved
H/o Heart Failure, s/p Heart transplant 2001 (on chronic immunosuppression)- c/w tacrolimus & cellcept
Pulmonary Hypertension - recent echo 07/13/24 showing PASP 75-80 mmHg.
AAA s/p EVAR w/ endoleak - CT 07/13/24 showing stable endoleak, patent SMA and celiac a. Vascular following.
COPD/ILD - on chronic O2 supplementation at home 8L NC--on HI BHARATHI-- Oxygen support and weaning per title lawyer team.
Right Lower Lobe Squamous Cell Carcinoma
Essential Hypertension - holding metoprolol and enalapril. cardiology following.
Hypercholesterolemia - c/w gemfibrozil
IDDM - c/w Glargine 12U BID & novolog AC
CKD Stage III - creatinine at baseline. Will continue to monitor.
History of PE -restart Eliquis--stop heparin drip
DVT Ppx - Heparin ggt
Code Status - DNR
patient current with palliative care--apprec input
outlook poor
Original Note:
Today's Communication/Plan
-
C/w abx. C/t wean O2 per title lawyer.
Assessment / Plan
Assessment / Plan
83 year old male
Patient has been on highflow for several days without improvement despite abx. overall prognosis is poor. Should consider re-evaluation of hospice care/comfort measures in the near future.
#Acute Hypoxic Respiratory Failure - currently on high flow. Weaning per title lawyer and respiratory teams. Possible contributory pneumonia, on abx as below.
#Sinus Tachycardia
- c/w rate control Lopressor 5mg IV q6 w/ q4 prn
#Septic Shock, secondary to infection, intra-abdominal vs. urinary vs. respiratory
[Hypotensive requiring pressure support w/ levophed, tachycardic, tachypneic, leukocytosis, lactic acidosis w/ probably source of infection]
- s/p 1L IVF, likely less than sepsis dosing due to history of heart transplant. CXR showing sm bl pleural effusions.
- COVID negative. Blood Cultures NGx48 hours, UA +, urine culture negative.
- Received one dose of IV Cefepime/Flagyl in ED. C/w Zosyn/Doxy
- Off pressors now, on midodrine 5mg TID.
- ID following.
#Enteritis/Ileus (resolving)
#Cecal Colitis (resolving)
- CT findings suggestive of Enteritis/Ileus w/ Cecal Colitis, no appendicitis. No evidence for bowel ischemia.
- GI consulted, no plans for endoscopy/colonoscopy given current clinical condition. If develops diarrhea can consider stool studies.
- Abd XR showing gaseous distention in the small bowel in the LUQ. CT on 07/13 showed calcified stones in gallbladder.
- advance to low residue/low lactose
- Appreciate GI recs.
#Constipation (resolved) - Had bowel movements. C/w Miralax/Ducolax prn.
#H/o Heart Failure, s/p Heart transplant 2001 (on chronic immunosuppression)
- There was a discrepancy in dosing; cleared up misunderstanding with the patient who takes 'THREE and TWO' of the 0.5mg tablets, equalling his home doses of 1.5mg and 1mg, respectively.
- c/w tacrolimus & cellcept. Continue w. tacrolimus trough, hold tacrolimus for trough >6. Give if between 4-6.
#Pulmonary Hypertension - recent echo 07/13/24 showing PASP 75-80 mmHg. Management per title lawyer/cardiology.
#AAA s/p EVAR w/ endoleak - CT 07/13/24 showing stable endoleak, patent SMA and celiac a. Evaluated by vascular, felt to be stable and noncontributory to presentation.
#COPD - on chronic O2 supplementation at home 8L NC.
#Right Lower Lobe Squamous Cell Carcinoma
#Essential Hypertension - holding metoprolol and enalapril. cardiology following.
#Hypercholesterolemia - c/w gemfibrozil
#IDDM - holding basal insulin for now as he is not eating enough. Will control Blood glucose with LDISS and re-evaluate as his oral intake improves.
#CKD Stage III - creatinine at baseline. Will continue to monitor.
#History of PE - Off heparin ggt, platelet drop. Holding Eliquis
Diet - Full Liquids
DVT Ppx - Eliquis.
Code Status - DNR
Anticipated Discharge: > 48 hours
Subjective/Interval History
-
Feels well, no acute complaints. Had two bowel movements yesterday which were painless and minimally formed. He has no new fevers or chills.
Objective Data
-
Labs:
Laboratory Results
07/18/24
03:20
WBC 9.4
Hgb 12.9 L
Hct 38.4 L
Plt Count 127 L
Sodium 135
Potassium 3.7
Chloride 105
Carbon Dioxide 17 L
BUN 78 H
Creatinine 2.1 H
Glucose 127 H
Calcium 7.8 L
Total Bilirubin 0.9
AST 20
ALT < 10
Alkaline Phosphatase 67
Vital Signs:
Vital Signs
Temp Pulse Resp BP Pulse Ox
98.6 F 97 16 151/107 91
07/18/24 05:26 07/18/24 05:26 07/18/24 05:26 07/18/24 05:26 07/18/24 05:26
I&O
07/16/24 07/17/24 07/18/24
06:59 06:59 06:59
Intake Total 426.0 / 426.0 992.5 / 992.5 1840 / 1840
Output Total 495 / 495 722 / 747 700 / 700
Balance -69.0 / -69.0 270.5 / 245.5 1140 / 1140
Review of Systems
-
History Source: Patient
Constitutional: Denies Fever, Night Sweats or Chills
EENT: Denies Sore Throat or Runny Nose
Respiratory: Reports Cough and Trouble Breathing; Denies Wheezing or Pleurisy
Cardiac: Denies Chest Pain, Palpitations or Syncope
Abdomen/GI: Reports Diarrhea (2 loose stools. painless, NB); Denies Abdominal Pain, Nausea or Vomiting
Breast: Reports N/A
Genitourinary: Denies Dysuria or Flank Pain
Musculoskeletal: Denies Joint Pain, Joint Swelling or Muscle Pain
Skin: Reports No Symptoms
Neuro: Denies Headache or Numbness
Hematologic / Lymphatic: Denies Bleeding or Bruising
Physical Exam
-
General: No Apparent Distress, Comfortable and Appears Chronically Ill
HEENT: Normocephalic, Atraumatic, Moist Mucous Membranes, Anicteric, [place] Conjunctivae, PERRLA, Nose Appears Normal, Ears Appear Normal and Oxygen (High Flow)
Respiratory: Clear to Auscultation and Decreased Breath Sounds; Negative Wheezes, Rales or Rhonchi
Cardiac: Regular Rhythm, S1/S2 and Tachycardic
GI: Soft, Nontender, Nondistended and Normal Bowel Sounds
Genito-urinary: Clear Urine and Zabala
Musculoskeletal: No Clubbing, No Cyanosis and No Edema
Skin: Warm, Dry and IV Access / Catheter Site
Neuro: AO x 3
Psych: Calm
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
[2024-07-18] MEDS: SPIRIVA RESPIMAT 2.5 MCG 2 PUFF INH (07:58)
[2024-07-18] MEDS: SYMBICORT 80/4.5 MCG INHALER 2 PUFF INH ×2 (07:58→20:27)
[2024-07-18 08:47] LABS: Glucose - Point of Care 134 mg/dl (70-99)
[2024-07-18] MEDS: PROGRAF 1.5 MG PO (08:56)
[2024-07-18] MEDS: ProAmatine 5 MG PO ×3 (08:56→18:13)
[2024-07-18] MEDS: FLOMAX 0.4 MG PO (08:56)
[2024-07-18] MEDS: CELLCEPT 750 MG PO ×2 (08:57→19:54)
[2024-07-18] MEDS: VIBRAMYCIN 100 MG PO ×2 (08:57→19:54)
[2024-07-18] MEDS: NEURONTIN 300 MG PO ×3 (08:57→21:13)
[2024-07-18] MEDS: PROTONIX 40 MG PO (08:57)
[2024-07-18] MEDS: LOPID 600 MG PO ×2 (08:57→19:54)
[2024-07-18] MEDS: SODIUM BICARBONATE 650 MG PO ×3 (08:59→21:13)
[2024-07-18] MEDS: NOVOLOG FLEXPEN-MODERATE RESISTANCE SC ×2 (09:22→17:00)
--- NOTE | 2024-07-18 09:24 | PTCARENOTE ---
Assumed care at 0700 patient in bed. AAO x3; BP 124/94 MAP 105 via RT upper arm. on high flow 50/60% POX 92% RR irregular. lungs RT side course. left diminished Blood sugar this am 134 . All meds adm per order
--- NOTE | 2024-07-18 10:46 | W.PN.NEPH.PH ---
Today's Communication / Plan
-
follow labs
Assessment/Plan
-
Assessment
BHUMI CKD3-baseline cr 1.3-1.5
Hypotension
Pneumonia
Enteritis
AAA, EVAR, type II endoleak
Diabetes mellitus type 2
Orthotopic heart transplant
COPD
Plan
BHUMI-UA microhematuria with zabala
Cause of BHUMI likely from hypotension, sepsis, contrast exposure, Fena 0.2 low.
improving UOP, cr down to 2.1
met acidosis stable cont po bicarb
given his tenuous resp status not planning IVF
Maintain Zabala catheter for now
On midodrine to maintain mean arterial pressure
high risk encounter
d/w pt and
-
-
Date of Service: July 18, 2024
CC / HPI / ROS
-
Chief Complaint:
BHUMI
History of Present Illness:
cr down to 2.1
non oliguric with zabala
wt no change, BP soft on midodrine
on high flow O2
Review of Systems:
no pain or n/v
no fever
Labs
-
Labs:
WBC 9.4 10^3/uL (4.8-10.8) 07/18/24 03:20
RBC 4.47 10^6/uL (4.70-6.10) L 07/18/24 03:20
Hgb 12.9 g/dL (13.0-18.0) L 07/18/24 03:20
Hct 38.4 % (39.0-52.0) L 07/18/24 03:20
Plt Count 127 10^3/uL (130-400) L 07/18/24 03:20
Sodium 135 mmol/L (135-145) 07/18/24 03:20
Potassium 3.7 mmol/L (3.5-5.1) 07/18/24 03:20
Chloride 105 mmol/L (98-107) 07/18/24 03:20
Carbon Dioxide 17 mmol/L (22-30) L 07/18/24 03:20
BUN 78 mg/dl (9-20) H 07/18/24 03:20
Creatinine 2.1 mg/dL (0.7-1.3) H 07/18/24 03:20
eGFR 30.85 07/18/24 03:20
Glucose 127 mg/dl (70-99) H 07/18/24 03:20
Calcium 7.8 mg/dl (8.4-10.2) L 07/18/24 03:20
Muu-C-Lxtiogcdtma Pept 3250 pg/ml 07/13/24 10:51
Albumin 2.8 g/dl (3.5-5.0) L 07/18/24 03:20
Physical Exam
-
Vital Signs:
Vital Signs
Temp Pulse Resp BP Pulse Ox
97.2 F 115 25 122/85 90
07/18/24 07:23 07/18/24 13:37 07/18/24 12:00 07/18/24 13:37 07/18/24 12:00
Cardiovascular:: Regular rate and rhythm
Respiratory:: Bilateral: Coarse
Lung Excursion:: Normal
Abdomen:: Nontender and Soft
Extremity Edema:: None: Bilateral:
Zabala Catheter: Yes
[2024-07-18] MEDS: LANTUS 0.18 UNITS SC ×2 (10:51→21:13)
--- NOTE | 2024-07-18 11:31 | W.PN.ID1 ---
Date of Service
Date of Service: July 18, 2024
Today's Communication
- c/w zosyn for now, anticipate eventual transition to oral therapy - day 6 of therapy
- c/w doxycycline x7 days
Assessment / Plan
Acute hypoxemic resp failure - baseline O2 requirement 8L
Shock - resolved
Enteritis/ileus
Heart Transplantation 2001
Immunosuppression
Pulmonary HTN - end stage
Possible pneumonia
BHUMI on CKD - progressing
- blood cultures x2 no growth to date
- sputum sample - zeinab albicans - usual resp bianca
- c/w zosyn for now, anticipate eventual transition to oral therapy - day 6 of therapy
- c/w doxycycline x7 days
- patient is critically ill with a very high burden of pre-existing disease, with some interval improvement, medium term prognosis poor
Chief Complaint
-: Other (shock, enteritis; immunosuppression)
Subjective / Review of Systems
afebrile
bp stable off of pressors
remains on high flow 50L/min, down to 55% today
no events overnight
only complaint some nausea
Vital Signs / Physical Exam
Vital Signs
Vital Signs
Temp Pulse Resp BP Pulse Ox
97.2 F 102 18 124/94 91
07/18/24 07:23 07/18/24 08:56 07/18/24 08:02 07/18/24 08:56 07/18/24 11:19
Physical Exam
Constitutional: No Acute Distress and Chronically Ill
Cardiovascular: Regular Rate and S1/S2; Negative Murmur or Rub
Pulmonary: Clear and Symmetric; Negative Wheezes or Rales
Gastrointestinal: Soft, Non Tender, Non Distended and Normal Bowel Sounds
Skin: Warm and Dry; Negative Rash or Jaundice
Objective Data
Lab Data
Lab Results
07/18/24 03:20
07/18/24 03:20
PT 18.7 Sec (11.4-14.6) H 07/16/24 13:38
INR 1.53 07/16/24 13:38
APTT Cancelled 07/15/24 17:30
Estimated Creat Clear 26 ml/min 07/18/24 03:20
Lactic Acid Cancelled 07/13/24 23:20
Total Bilirubin 0.9 mg/dl (0.2-1.3) 07/18/24 03:20
AST 20 U/L (17-59) 07/18/24 03:20
ALT < 10 U/L (0-50) 07/18/24 03:20
Alkaline Phosphatase 67 U/L (38-126) 07/18/24 03:20
Most recent labs reviewed.
Micro Results:
07/13/24 10:04 Blood Culture - Final
Blood/Venous No Growth - Final Report
07/13/24 10:04 Blood Culture - Final
Blood/Venous No Growth - Final Report
07/15/24 15:37 Respiratory Culture - Final
Sputum Zeinab albicans
Gram Stain - Final
07/14/24 02:16 Urine Culture - Final
Urine No Significant Growth
[2024-07-18] MEDS: LOPRESSOR IV (12:18)
[2024-07-18] MEDS: ProAmatine PO (12:18)
[2024-07-18] MEDS: NOVOLOG FLEXPEN-MODERATE RESISTANCE 1 UNITS SC (13:03)
[2024-07-18 13:10] LABS: Glucose - Point of Care 198 mg/dl (70-99)
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
--- NOTE | 2024-07-18 14:23 | PTCARENOTE ---
Assumed care of pt @ 1100. Pt. AAOx3, denies pain. SR/ST on monitor. SpO2 93% on HFNC 50L/60%. Auscultated dim/coarse breath sounds throughout. Occ no moist cough. +BS, abd soft/round; cont bowel; poor appetite. Victoria in place draining bloody
urine. New dressing applied to face for skin breakdown prevention. Assisted x1 to BSC then OOB to chair @ 1200, remains tolerating position. Instructed on how to report care concerns, rings approp, call martell lindsey in reach. Family @ bedside.
[2024-07-18 17:10] LABS: Glucose - Point of Care 145 mg/dl (70-99)
--- NOTE | 2024-07-18 20:00 | PTCARENOTE ---
rec'd pt resting in bed, denies pain, cooperative, ST, bp stable, weak distal pulses, skin warm/dry, O2 via hi flow 55 o2/ 50 liters, sat 98, lungs decr in bases, moist NPC, hypo bowel sounds, no bm, abd soft, no n/v, leon fluids, zabala draining
bloody urine, reaches 1250 on IS
--- NOTE | 2024-07-18 20:30 | PTCARENOTE ---
changed to hi flow 50 liters/ 50% by resp
[2024-07-18] MEDS: AYR SALINE NASAL GEL 1 APPLIC NASAL (21:03)
[2024-07-18] MEDS: CRESTOR 20 MG PO (21:13)
[2024-07-18] MEDS: PROGRAF 1 MG PO (21:14)
[2024-07-18 21:22] LABS: Glucose - Point of Care 185 mg/dl (70-99)
--- NOTE | 2024-07-18 22:00 | PTCARENOTE ---
assisted to bsc- has loose brown mucoid stool, back to bed
[2024-07-19] VITALS (19 sets, daily range): BP systolic 106–151; BP diastolic 74–122; PULSE 118; O2SAT 90; BMI 21.6
--- NOTE | 2024-07-19 00:14 | PTCARENOTE ---
sys reviewed, changes noted
[2024-07-19 03:37] LABS: % Basophils 0.1 % (0-2); % Immature Granulocytes 0.5 % (0-0.5); % Lymphocytes 17.7 % (20.5-51.1); % Monocytes 11.3 % (1.7-9.3); % Neutrophils 70.4 % (42.2-75.2); Absolute Lymphocytes 1.3 10^3/uL (1.2-3.4); Absolute Monocytes 0.8 10^3/uL (0.1-0.6); Absolute Neutrophils 5.2 10^3/uL (1.4-6.5); Hematocrit 36.7 % (39.0-52.0); Hemoglobin 12.1 g/dL (13.0-18.0); Mean Corpuscular Hgb 28.3 pg (27.0-31.0); Mean Corpuscular Volume 85.9 fL (80.0-94.0); Mean Platelet Volume 11.7 fL (7.4-10.4); Nucleated Red Blood Cells % 0 % (-); Platelet Count 118 10^3/uL (130-400); Red Blood Cell Count 4.27 10^6/uL (4.70-6.10); Red Cell Dist. Width 14.4 % (11.5-14.5); White Blood Cell Count 7.3 10^3/uL (4.8-10.8)
--- NOTE | 2024-07-19 03:42 | PTCARENOTE ---
sys reviewed, changes noted
[2024-07-19 04:31] LABS: ALT (SGPT) < 10 U/L (0-50); AST (SGOT) 15 U/L (17-59); Albumin 1.6 g/dl (3.5-5.0); Alkaline Phosphatase 47 U/L (38-126); Blood Urea Nitrogen 62 mg/dl (9-20); Calcium 5.9 mg/dl (8.4-10.2); Carbon Dioxide 16 mmol/L (22-30); Chloride 114 mmol/L (98-107); Estimated Creatinine Clearance 41 ml/min; Glucose 115 mg/dl (70-99); Potassium 2.8 mmol/L (3.5-5.1); Sodium 139 mmol/L (135-145); Total Bilirubin 0.6 mg/dl (0.2-1.3); eGFR 54.85
--- NOTE | 2024-07-19 04:46 | PTCARENOTE ---
Liam Sal NP notified of critical ranjit & K
[2024-07-19] MEDS: SYNTHROID 175 MCG PO (04:59)
[2024-07-19] MEDS: KCL 40 MEQ PO (04:59)
[2024-07-19] MEDS: ZOSYN 50 IV ×4 (05:00→23:05)
[2024-07-19] MEDS: LOPRESSOR 5 MG IV ×4 (05:01→23:05)
--- NOTE | 2024-07-19 05:06 | PTCARENOTE ---
40 kcl po given per order
[2024-07-19] MEDS: KCL 270 MEQ IV (05:29)
--- NOTE | 2024-07-19 05:30 | PTCARENOTE ---
40 kcl/ 250 hung over 4 hr per order
--- NOTE | 2024-07-19 07:38 | W.PN.HOSP.TC ---
Addendum entered and electronically signed by Bay Michaud MD 07/19/24 17:22:
Seen and examined by me independently in collaboration with the medical collector.
Lab data and imaging data reviewed.
Addendum as below :
Resolved GI symptoms and tolerating a diet.
Improving shortness of breath. Still not back at his baseline. Was able to wean down to 8 L which is his home FiO2.
Patient without any active bronchospasm.
Based on the radiological images cannot rule out possibility of pneumonia. Patient immunocompromised. Continue with empirical antibiotics per ID.
Pulmonary following.
Transfer to IMU
Original Note:
Today's Communication/Plan
-
Downgrade to IMU, continue to wean O2, c/w abx.
Assessment / Plan
Assessment / Plan
83 year old male
Patient has come down on highflow to 9LNC, though he is hypoxic to the low 80s.
#Acute Hypoxic Respiratory Failure - currently on mid flow 9L w/ sats in low 80s. Possible contributory pneumonia, on abx as below, though less likely given significant respiratory complications/pulm fibrosis/COPD/h/o lung cancer. Will continue to
wean to home 8L with saturations >88%.
#Sinus Tachycardia
- c/w rate control Lopressor 5mg IV q6 w/ q4 prn. May consider transitioning to PO dosing in anticipation for discharge as his respiratory status hopefully improves.
#Septic Shock, secondary to infection, intra-abdominal vs. urinary vs. respiratory
[Hypotensive requiring pressure support w/ levophed, tachycardic, tachypneic, leukocytosis, lactic acidosis w/ probably source of infection]
- s/p 1L IVF, likely less than sepsis dosing due to history of heart transplant. CXR showing sm bl pleural effusions.
- COVID negative. Blood Cultures NGx48 hours, UA +, urine culture negative.
- Received one dose of IV Cefepime/Flagyl in ED. C/w Zosyn/Doxy
- Off pressors. Stopping midodrine.
- ID following.
#Enteritis/Ileus (resolving)
#Cecal Colitis (resolving)
- CT findings suggestive of Enteritis/Ileus w/ Cecal Colitis, no appendicitis. No evidence for bowel ischemia.
- GI consulted, no plans for endoscopy/colonoscopy given current clinical condition. If develops diarrhea can consider stool studies.
- Abd XR showing gaseous distention in the small bowel in the LUQ. CT on 07/13 showed calcified stones in gallbladder.
-Tolerating low residue/low lactose diet
- Appreciate GI recs.
#Constipation (resolved) - Had bowel movements. C/w Miralax/Ducolax prn.
#H/o Heart Failure, s/p Heart transplant 2001 (on chronic immunosuppression)
- There was a discrepancy in dosing; cleared up misunderstanding with the patient who takes 'THREE and TWO' of the 0.5mg tablets, equalling his home doses of 1.5mg and 1mg, respectively.
- c/w tacrolimus & cellcept.
#Pulmonary Hypertension - recent echo 07/13/24 showing PASP 75-80 mmHg. Likely contributing to his chronic hypoxia.
#AAA s/p EVAR w/ endoleak - CT 07/13/24 showing stable endoleak, patent SMA and celiac a. Evaluated by vascular, felt to be stable and noncontributory to presentation.
#COPD - on chronic O2 supplementation at home 8L NC.
#H/o Right Lower Lobe Squamous Cell Carcinoma
#Essential Hypertension - holding metoprolol and enalapril. cardiology following.
#Hypercholesterolemia - c/w gemfibrozil
#IDDM - Back on basal 18U. LDISS.
#CKD Stage III - creatinine at baseline. Will continue to monitor.
#History of PE - Off heparin ggt, platelet drop. Holding Eliquis in the setting of hematuria
Diet - Full Liquids
DVT Ppx - Holding Eliquis.
Code Status - DNR
Anticipated Discharge: > 48 hours
Subjective/Interval History
-
Feeling well this morning. He has no new abd pain, n/v/diarrhea. No new fevers or chills. he has an appetite and his shortness of breath is almost back to his baseline.
Objective Data
-
Labs:
Laboratory Results
07/19/24
02:56
WBC 7.3
Hgb 12.1 L
Hct 36.7 L
Plt Count 118 L
Sodium 139
Potassium 2.8 L
Chloride 114 H
Carbon Dioxide 16 L
BUN 62 H
Creatinine 1.3
Glucose 115 H
Calcium 5.9 L* D
Total Bilirubin 0.6
AST 15 L
ALT < 10
Alkaline Phosphatase 47
Vital Signs:
Vital Signs
Temp Pulse Resp BP Pulse Ox
97.5 F 101 15 137/96 91
07/19/24 03:40 07/19/24 06:00 07/19/24 06:00 07/19/24 06:00 07/19/24 05:00
I&O
07/18/24 07/19/24 07/20/24
06:59 06:59 06:59
Intake Total 1840 / 1840 760 / 760
Output Total 700 / 700 1200 / 1200
Balance 1140 / 1140 -440 / -440
Review of Systems
-
History Source: Patient
Constitutional: Denies Fever or Chills
EENT: Denies Sore Throat or Runny Nose
Respiratory: Reports Trouble Breathing; Denies Cough, Wheezing or Pleurisy
Cardiac: Denies Chest Pain, Diaphoresis, Palpitations or Syncope
Abdomen/GI: Denies Abdominal Pain, Nausea, Vomiting or Diarrhea
Breast: Reports N/A
Genitourinary: Reports Difficulty Voiding and Other (on Victoria); Denies Dysuria or Flank Pain
Musculoskeletal: Denies Joint Pain, Joint Swelling or Muscle Pain
Skin: Denies Itching or Rash
Neuro: Denies Dizzy or Headache
Physical Exam
-
General: Well Developed, Well Nourished and Appears Chronically Ill; Negative Pain
HEENT: Normocephalic, Atraumatic, Moist Mucous Membranes, Anicteric, [place] Conjunctivae, PERRLA, Nose Appears Normal and Ears Appear Normal
Respiratory: Rales and Accessory Resp Muscle Use; Negative Clear to Auscultation, Wheezes or Rhonchi
Cardiac: S1/S2, Irregular Rhythm and Tachycardic; Negative Murmur
Breast: N/A
GI: Soft, Nontender, Nondistended and Normal Bowel Sounds
Rectal: Deferred by Provider
Genito-urinary: Bloody Urine and Victoria
Musculoskeletal: No Clubbing, No Cyanosis and Other (BL pedal edema)
Skin: Warm, Dry and IV Access / Catheter Site
Neuro: AO x 3
[2024-07-19] MEDS: PROGRAF 1.5 MG PO (07:47)
[2024-07-19] MEDS: NOVOLOG FLEXPEN-MODERATE RESISTANCE SC (07:47)
[2024-07-19] MEDS: LOPID 600 MG PO ×2 (07:48→19:58)
[2024-07-19] MEDS: PROTONIX 40 MG PO (07:48)
[2024-07-19] MEDS: SODIUM BICARBONATE 650 MG PO ×3 (07:48→21:11)
[2024-07-19] MEDS: VIBRAMYCIN 100 MG PO ×2 (07:48→19:57)
[2024-07-19] MEDS: FLOMAX 0.4 MG PO (07:48)
[2024-07-19] MEDS: CELLCEPT 750 MG PO ×2 (07:48→19:58)
[2024-07-19] MEDS: ProAmatine 5 MG PO (07:48)
[2024-07-19] MEDS: NEURONTIN 300 MG PO ×3 (07:48→21:11)
[2024-07-19] MEDS: LANTUS 0.18 UNITS SC ×2 (07:49→21:11)
[2024-07-19] MEDS: SPIRIVA RESPIMAT 2.5 MCG 2 PUFF INH (07:49)
[2024-07-19] MEDS: SYMBICORT 80/4.5 MCG INHALER 2 PUFF INH ×2 (07:49→19:17)
[2024-07-19] MEDS: SOLU-CORTEF 50 MG IV ×3 (07:49→23:05)
[2024-07-19 07:57] LABS: Glucose - Point of Care 114 mg/dl (70-99)
--- NOTE | 2024-07-19 08:00 | PTCARENOTE ---
Received pt @ change of shift. Pt. AAox3, denies pain. ST on monitor. SpO2 90% on HFNC 50L/50%, reports ROBLES; tachypnea into mid 20's. Auscultated dim breath sounds @ bases; coarse breath sounds throughout. Occ geology scientist moist cough. Hypoactive BS, abd
round. Tolerating diet, denies n/v; kyle improving. Victoria in place draining bloody urine, punch color. #20 L/R FA patent, dressings intact. Assisted OOB to BSC and then into chair @ 0700; remains OOB, tolerating position. Call martell lindsey in reach,
rings approp.
--- NOTE | 2024-07-19 08:20 | W.PN.NEPH.PH ---
Today's Communication / Plan
-
Replete electrolytes
Maintain Zabala
Continue sodium bicarbonate in setting of persistent metabolic acidosis
Assessment/Plan
-
Assessment
BHUMI CKD3-baseline cr 1.3-1.5
Hypotension
Pneumonia
Enteritis
AAA, EVAR, type II endoleak
Diabetes mellitus type 2
Orthotopic heart transplant
COPD
Plan
BHUMI-UA microhematuria with zabala
Cause of BHUMI likely from hypotension, sepsis, contrast exposure, Fena 0.2 low.
improving UOP, cr down to 1.3
met acidosis stable, continued po bicarb
given his tenuous resp status not planning IVF
Maintain Zabala catheter for now
Calcium dropping, replete IV
Replete potassium ~80 meq
On midodrine to maintain mean arterial pressure
high risk encounter
d/w pt and
-
-
Date of Service: July 19, 2024
CC / HPI / ROS
-
Chief Complaint:
BHUMI
History of Present Illness:
cr down to 1.3
non oliguric with zabala
wt no change, BP stable on midodrine
on high flow O2
Review of Systems:
no pain or n/v
no fever
Labs
-
Labs:
WBC 7.3 10^3/uL (4.8-10.8) 07/19/24 02:56
RBC 4.27 10^6/uL (4.70-6.10) L 07/19/24 02:56
Hgb 12.1 g/dL (13.0-18.0) L 07/19/24 02:56
Hct 36.7 % (39.0-52.0) L 07/19/24 02:56
Plt Count 118 10^3/uL (130-400) L 07/19/24 02:56
Sodium 139 mmol/L (135-145) 07/19/24 02:56
Potassium 2.8 mmol/L (3.5-5.1) L 07/19/24 02:56
Chloride 114 mmol/L (98-107) H 07/19/24 02:56
Carbon Dioxide 16 mmol/L (22-30) L 07/19/24 02:56
BUN 62 mg/dl (9-20) H 07/19/24 02:56
Creatinine 1.3 mg/dL (0.7-1.3) 07/19/24 02:56
eGFR 54.85 07/19/24 02:56
Glucose 115 mg/dl (70-99) H 07/19/24 02:56
Calcium 5.9 mg/dl (8.4-10.2) L* D 07/19/24 02:56
Abu-P-Lrackyslnet Pept 3250 pg/ml 07/13/24 10:51
Albumin 1.6 g/dl (3.5-5.0) L 07/19/24 02:56
Physical Exam
-
Vital Signs:
Vital Signs
Temp Pulse Resp BP Pulse Ox
97.5 F 109 20 137/96 90
07/19/24 03:40 07/19/24 07:53 07/19/24 07:53 07/19/24 07:48 07/19/24 08:15
Cardiovascular:: Regular rate and rhythm
Respiratory:: Bilateral: Coarse
Lung Excursion:: Normal
Abdomen:: Nontender and Soft
Extremity Edema:: None: Bilateral:
Zabala Catheter: Yes
--- NOTE | 2024-07-19 10:58 | HOSPNOTE ---
Patient continues to not be ready for hospice. We will continue to follow.
[2024-07-19 12:54] LABS: NT-proBNP 4540 pg/ml
[2024-07-19] MEDS: NOVOLOG FLEXPEN-MODERATE RESISTANCE 1 UNITS SC ×2 (13:02→18:09)
[2024-07-19 13:13] LABS: Glucose - Point of Care 166 mg/dl (70-99)
--- NOTE | 2024-07-19 13:31 | PTCARENOTE ---
Pt. transitioned to 8LMF by RT @ approx 1100, SpO2 88-90% on O2. Saturation drops to 85% on exertion; self recovers back to >88% @ rest. Report given to IMU RN and pt transferred via chair to rm [id number] on monitor @ 1230. present during
transport. No further needs from this RN.
--- NOTE | 2024-07-19 13:39 | W.PN.PAL2 ---
Today's Communication
-
transferred to IMU
weaned to 15L
await PT recs
Assessment / Plan
-
Assessment/Plan:
83 year old M with COPD/pulm HTN on 8L at home - admitted with sepsis, resp failure on high flow 02. Now weaned to 15L and out of ICU
- seen at bedside with present. Overall feeling okay today, glad to be downgraded from ICU. On 15L. Discussed possibility of needing short term SNF if continues to wean back to 8L baseline 02.
- creat back to normal range today 1.3
- follows palliative as an outpatient - will continue to follow as an outpatient as he is not interested in hospice at this time
Objective Data
-
Objective Data:
Vital Signs
Temp Pulse Resp BP Pulse Ox
97.5 F 120 20 142/100 90
07/19/24 03:40 07/19/24 13:07 07/19/24 07:53 07/19/24 13:07 07/19/24 10:32
Laboratory Results
07/19/24 02:56
07/19/24 02:56
PT 18.7 Sec (11.4-14.6) H 07/16/24 13:38
INR 1.53 07/16/24 13:38
APTT Cancelled 07/15/24 17:30
Hemoglobin A1c 7.3 % (4.0-5.6) H 07/14/24 08:15
Total Protein 4.0 g/dl (6.3-8.2) L D 07/19/24 02:56
Albumin 1.6 g/dl (3.5-5.0) L 07/19/24 02:56
Urine Color Yellow 07/14/24 02:16
Urine Clarity Clear (Clear) 07/14/24 02:16
Urine pH 5.0 (5.0-9.0) 07/14/24 02:16
Ur Specific [place] 1.020 (<1.030) 07/14/24 02:16
Urine Ketones Trace (Negative) A 07/14/24 02:16
Urine Bilirubin 1+ (Negative) A 07/14/24 02:16
Palliative Performance Scale
Palliative Performance Scale:
PPS Level Ambulation Activity & Evidence of Disease Self Care Intake Conscious Level
100% Full Normal Activity & Work; Full Intake Full
No Evidence of Disease
90% Full Normal Activity & Work; Full Normal Full
Some Evidence of Disease
80% Full Normal Activity with Effort Full Normal or Full
Some Evidence of Disease Reduced
70% Reduced Unable Normal Job/Work Full Normal or Full
Significant Disease Reduced
60% Reduced Unable Hobby/Housework Occasional Normal or Full or Confusion
Significant Disease Assistance Reduced
50% Mainly Sit/Lie Unable to do Any Work Considerable Normal or Full or Confusion
Extensive Disease Assistance Req'd Reduced
40% Mainly in Bed Unable to do Most Activity Mainly Assistance Normal or Full or Drowsy;
Extensive Disease Reduced +/- Confusion
30% Totally Bed Unable to do Any Activity Total Care Normal or Full or Drowsy;
Bound Extensive Disease Reduced +/- Confusion
20% Totally Bed Bound Unable to do Any Activity Total Care Minimal to Full or Drowsy;
Extensive Disease Sips +/- Confusion
10% Totally Bed Bound Unable to do Any Activity Total Care Mouth Care Drowsy or Coma;
Extensive Disease Only +/- Confusion
0%
PPS Score Level:
Physical Exam
-
General: No Apparent Distress and Appears Chronically Ill
HEENT: Normocephalic
Respiratory: Decreased Breath Sounds
Cardiac: Regular Rhythm
Peripheral Vascular: No Edema
GI: Soft
Skin: Warm
Neuro: AO x 3
Psych: Calm
Care Reviewed
Data Reviewed
Radiology procedure: Image Reviewed
Medical Tests: I reviewed
Reviewed with: Patient and Family
--- NOTE | 2024-07-19 14:03 | W.PN.ID1 ---
Date of Service
Date of Service: July 19, 2024
Today's Communication
- c/w zosyn for now, anticipate eventual transition to oral therapy - day 7 of therapy
- c/w doxycycline x7 days
Assessment / Plan
Acute hypoxemic resp failure - baseline O2 requirement 8L
Shock - resolved
Enteritis/ileus
Heart Transplantation 2001
Immunosuppression
Pulmonary HTN - end stage
Possible pneumonia
BHUMI on CKD - progressing
- blood cultures x2 no growth to date
- sputum sample - zeinab albicans - usual resp bianca
- c/w zosyn for now, anticipate eventual transition to oral therapy - day 7 of therapy
- c/w doxycycline x7 days
- patient is critically ill with a very high burden of pre-existing disease, with some interval improvement, medium term prognosis poor
Chief Complaint
-: Other (shock, enteritis; immunosuppression)
Subjective / Review of Systems
afebrile
bp stable off of pressors
moved to 8L NC which is his baseline
cr notably improved today
Vital Signs / Physical Exam
Vital Signs
Vital Signs
Temp Pulse Resp BP Pulse Ox
97.1 F 120 20 142/100 90
07/19/24 11:00 07/19/24 13:07 07/19/24 07:53 07/19/24 13:07 07/19/24 10:32
Physical Exam
Constitutional: No Acute Distress and Chronically Ill
Pulmonary: Symmetric
Gastrointestinal: Non Distended
Skin: Dry; Negative Rash or Jaundice
Neurological: Awake
Objective Data
Lab Data
Lab Results
07/19/24 02:56
07/19/24 02:56
PT 18.7 Sec (11.4-14.6) H 07/16/24 13:38
INR 1.53 07/16/24 13:38
APTT Cancelled 07/15/24 17:30
Estimated Creat Clear 41 ml/min 07/19/24 02:56
Lactic Acid Cancelled 07/13/24 23:20
Total Bilirubin 0.6 mg/dl (0.2-1.3) 07/19/24 02:56
AST 15 U/L (17-59) L 07/19/24 02:56
ALT < 10 U/L (0-50) 07/19/24 02:56
Alkaline Phosphatase 47 U/L (38-126) 07/19/24 02:56
Most recent labs reviewed.
Micro Results:
07/13/24 10:04 Blood Culture - Final
Blood/Venous No Growth - Final Report
07/13/24 10:04 Blood Culture - Final
Blood/Venous No Growth - Final Report
07/15/24 15:37 Respiratory Culture - Final
Sputum Zeinab albicans
Gram Stain - Final
07/14/24 02:16 Urine Culture - Final
Urine No Significant Growth
--- NOTE | 2024-07-19 14:50 | PTCARENOTE ---
Rec'd pt from [facility]. O2 increased to 12L MF NC. IN chair eating. Sat approved when not talking or eating. NO complaints at this time.
--- NOTE | 2024-07-19 14:50 | CM ---
CM following re: discharge planning.
Reviewed pt's chart, met with pt and pt's spouse at bedside.
Pt is transferred from ICU to IMU, transitioned to 8-10 L midflow of Oxygen, home baseline 8L NC.
PT and OT have been recommending SNF level of care. CM discussed it with the pt and his spouse and both expressed their agreement. Pt stated he has never been in a SNF. A list of SNFs provided. Following SNFs preferred: [facility], [facility], [facility] and [facility]. A referral to above SNFs made.
D/C plan: preferred SNF.
CM will follow to assist pt with discharge to a preferred SNF.
[2024-07-19] MEDS: ProAmatine PO (15:05)
[2024-07-19 17:20] LABS: Glucose - Point of Care 168 mg/dl (70-99)
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
[2024-07-19] MEDS: LASIX 20 MG IV (18:29)
--- NOTE | 2024-07-19 18:38 | PTCARENOTE ---
Pt having resp distress and desaturating on 8L MF. increased to 15L MF, Notified Dr. Michaud and Dr. Garcia. IV lasix 20mg ordered. Pt required brief period with NRB mask for rescue. Currently on 15L MF, Sat 88%. reports feeling better
--- NOTE | 2024-07-19 18:45 | PTCARENOTE ---
Pt requiring NRB mask plus 15L midflow again. Sat on 15L MF 86%. updated and
[2024-07-19] MEDS: CRESTOR 20 MG PO (21:11)
[2024-07-19] MEDS: PROGRAF 1 MG PO (21:11)
[2024-07-19 21:24] LABS: Glucose - Point of Care 141 mg/dl (70-99)
[2024-07-20] VITALS (17 sets, daily range): BP systolic 116–172; BP diastolic 78–112; O2SAT 98; BMI 22.0
--- NOTE | 2024-07-20 00:10 | PTCARENOTE ---
assumed care of patient, pt getting put on HFNC at start of shift. pt on 50L 70%, 92-95%. pt does desat with even minimal activity. non-rebreather used for breakthrough. pt SOB on exertion and rest. zabala intact draining yellow urine with sediment.
no complaints of pain. pt able to have a BM [facility] the [facility] assist. pt did use non-rebreather while ambulating. foam of sacrum intact. care ongoing.
--- NOTE | 2024-07-20 02:46 | PTCARENOTE ---
pt found to be climbing OOB, heart monitor off, zabala pulling attached to the bed still. pt stated he used call moura and no one came. assured call moura system is working properly, maybe patient woke up confused as no call moura has gone off. pt
placed on BSC to have 2nd BM of the night. pt placed back to bed. bed alarm now on. call moura given to patient. care ongoing.
[2024-07-20 03:23] LABS: Ionized Calcium 1.12 mMOL/L (1.15-1.33)
[2024-07-20 03:51] LABS: ALT (SGPT) 13 U/L (0-50); AST (SGOT) 22 U/L (17-59); Albumin 3.4 g/dl (3.5-5.0); Alkaline Phosphatase 78 U/L (38-126); Blood Urea Nitrogen 68 mg/dl (9-20); Calcium 8.4 mg/dl (8.4-10.2); Carbon Dioxide 25 mmol/L (22-30); Chloride 105 mmol/L (98-107); Estimated Creatinine Clearance 32 ml/min; Glucose 65 mg/dl (70-99); Potassium 3.7 mmol/L (3.5-5.1); Sodium 143 mmol/L (135-145); Total Bilirubin 0.9 mg/dl (0.2-1.3); Total Protein 6.2 g/dl (6.3-8.2); eGFR 39.75
[2024-07-20 04:04] LABS: % Basophils 0.1 % (0-2); % Immature Granulocytes 1.1 % (0-0.5); % Lymphocytes 23.2 % (20.5-51.1); % Monocytes 11.2 % (1.7-9.3); % Neutrophils 64.4 % (42.2-75.2); Absolute Immature Granulocytes 0.1 10^3/uL (0-0.05); Absolute Lymphocytes 2.2 10^3/uL (1.2-3.4); Hemoglobin 14.3 g/dL (13.0-18.0); Mean Corp Hgb Conc. 32.5 g/dL (33.0-37.0); Mean Corpuscular Hgb 28.3 pg (27.0-31.0); Mean Corpuscular Volume 87.1 fL (80.0-94.0); Mean Platelet Volume 11.6 fL (7.4-10.4); Nucleated Red Blood Cells % 0 % (-); Platelet Count 151 10^3/uL (130-400); Red Blood Cell Count 5.05 10^6/uL (4.70-6.10); Red Cell Dist. Width 14.8 % (11.5-14.5); White Blood Cell Count 9.3 10^3/uL (4.8-10.8)
[2024-07-20] MEDS: SYNTHROID 175 MCG PO (06:04)
[2024-07-20] MEDS: LOPRESSOR 5 MG IV ×4 (06:04→23:12)
[2024-07-20] MEDS: ZOSYN 50 IV ×4 (06:05→23:12)
--- NOTE | 2024-07-20 07:06 | W.PN.HOSP.TC ---
Today's Communication/Plan
-
C/t wean O2 as able for saturations >88%. C/w abx per ID. Monitor hematuria. resume eliquis
Assessment / Plan
Assessment / Plan
83 year old male
Patient back on high flow overnight.
#Diarrhea - 3 BMs/d, loose, NB. Likely from IV Abx. Adding probiotic
#Acute Hypoxic Respiratory Failure - currently on mid flow 9L w/ sats in low 80s. Possible contributory pneumonia, on abx as below, though less likely given significant respiratory complications/pulm fibrosis/COPD/h/o lung cancer. Will continue to
wean to home 8L with saturations >90%.
- Pulm following.
#BHUMI on CKD Stage III -Field Assessor bump to 2.3, now down to 1.7. Prior baseline somewhere around 1.4-1.5. Sodium bicarb for acidosis per nephro.
#Sinus Tachycardia
- c/w rate control Lopressor 5mg IV q6 w/ q4 prn. May consider transitioning to PO dosing in anticipation for discharge as his respiratory status hopefully improves.
#Septic Shock, secondary to infection, intra-abdominal vs. urinary vs. respiratory
[Hypotensive requiring pressure support w/ levophed, tachycardic, tachypneic, leukocytosis, lactic acidosis w/ probably source of infection]
- s/p 1L IVF, likely less than sepsis dosing due to history of heart transplant. CXR showing sm bl pleural effusions.
- COVID negative. Blood Cultures NGx48 hours, UA +, urine culture negative.
- Received one dose of IV Cefepime/Flagyl in ED. Abx per ID.
- Off pressors. Stopping midodrine.
- ID following.
#Enteritis/Ileus (resolved)
#Cecal Colitis (resolved)
- CT findings suggestive of Enteritis/Ileus w/ Cecal Colitis, no appendicitis. No evidence for bowel ischemia.
- GI consulted, no plans for endoscopy/colonoscopy given current clinical condition. If develops diarrhea can consider stool studies.
- Abd XR showing gaseous distention in the small bowel in the LUQ. CT on 07/13 showed calcified stones in gallbladder.
-Tolerating low residue/low lactose diet
- Appreciate GI recs.
#Constipation (resolved) - Had bowel movements. C/w Miralax/Ducolax prn.
#H/o Heart Failure, s/p Heart transplant 2001 (on chronic immunosuppression)
- There was a discrepancy in dosing; cleared up misunderstanding with the patient who takes 'THREE and TWO' of the 0.5mg tablets, equalling his home doses of 1.5mg and 1mg, respectively.
- c/w tacrolimus & cellcept.
#Pulmonary Hypertension - recent echo 07/13/24 showing PASP 75-80 mmHg. Likely contributing to his chronic hypoxia.
#AAA s/p EVAR w/ endoleak - CT 07/13/24 showing stable endoleak, patent SMA and celiac a. Evaluated by vascular, felt to be stable and noncontributory to presentation.
#COPD - on chronic O2 supplementation at home 8L NC.
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
#Essential Hypertension - holding po metoprolol and enalapril (due to BHUMI). cardiology/nephro following.
#Hypercholesterolemia - c/w gemfibrozil
#IDDM - Back on basal 18U. MDISS.
#History of PE - Off heparin ggt, platelet drop. Will resume Eliquis.
Diet - Full Liquids
DVT Ppx - Holding Eliquis.
Code Status - DNR
Anticipated Discharge: > 48 hours
Subjective/Interval History
-
Feeling well. Has been having loose stools x3/d but no other symptoms of fevers, chills. He reports some feelings of nausea that occur occasionally with meals, and reports the meals not tasting as good yesterday. He isn't sure if he is loosing his
taste of smell.
Objective Data
-
Labs:
Laboratory Results
07/20/24 07/20/24
02:49 02:50
WBC 9.3
Hgb 14.3
Hct 44.0
Plt Count 151 D
Sodium 143
Potassium 3.7 D
Chloride 105
Carbon Dioxide 25
BUN 68 H
Creatinine 1.7 H
Glucose 65 L
Calcium 8.4 D
Total Bilirubin 0.9
AST 22
ALT 13
Alkaline Phosphatase 78
Vital Signs:
Vital Signs
Temp Pulse Resp BP Pulse Ox
97.2 F 122 17 162/108 94
07/20/24 02:44 07/20/24 06:01 07/20/24 06:01 07/20/24 06:02 07/20/24 06:01
I&O
07/19/24 07/20/24 07/21/24
06:59 06:59 06:59
Intake Total 760 / 760 1260 / 1260
Output Total 1200 / 1200 1750 / 1750
Balance -440 / -440 -490 / -490
Review of Systems
-
History Source: Patient
Constitutional: Reports No Symptoms
EENT: Reports No Symptoms Reported
Respiratory: Reports No Symptoms
Cardiac: Reports No Symptoms
Abdomen/GI: Reports Nausea and Diarrhea; Denies Abdominal Pain, Vomiting, Constipated or Bloody Stools
Breast: Reports N/A
Genitourinary: Reports No Symptoms
Musculoskeletal: Reports No Symptoms
Skin: Reports No Symptoms
Neuro: Reports No Symptoms
Physical Exam
-
General: Well Developed, Well Nourished, Comfortable, Conversant and Appears Chronically Ill
HEENT: Normocephalic, Atraumatic, Moist Mucous Membranes, Anicteric, [place] Conjunctivae, PERRLA, Nose Appears Normal, Ears Appear Normal and Other (High flow oxygen 50 L 65%)
Respiratory: Rales and Rhonchi; Negative Wheezes
Cardiac: S1/S2, Irregular Rhythm and Tachycardic; Negative Murmur
Breast: N/A
GI: Soft, Nontender, Nondistended and Normal Bowel Sounds
Genito-urinary: Clear Urine and [place]
Musculoskeletal: No Clubbing, No Cyanosis and No Edema
Skin: Warm, Dry and IV Access / Catheter Site
Neuro: AO x 3
[2024-07-20 07:44] LABS: Glucose - Point of Care 56 mg/dl (70-99)
[2024-07-20] MEDS: NOVOLOG FLEXPEN-MODERATE RESISTANCE SC ×3 (08:08→16:38)
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
--- NOTE | 2024-07-20 08:11 | PTCARENOTE ---
Pt AAOx3 , accu check is low hypoglycemic protocol in place, is asymptomatic. Pt on HF 50 Liters 70 % O2.POX 93%.
[2024-07-20 08:12] LABS: Glucose - Point of Care 69 mg/dl (70-99)
[2024-07-20] MEDS: SYMBICORT 80/4.5 MCG INHALER 2 PUFF INH ×2 (08:16→19:13)
[2024-07-20] MEDS: SPIRIVA RESPIMAT 2.5 MCG 2 PUFF INH (08:16)
[2024-07-20] MEDS: FLOMAX 0.4 MG PO (08:27)
[2024-07-20] MEDS: NEURONTIN 300 MG PO ×3 (08:27→21:37)
[2024-07-20] MEDS: LASIX 20 MG IV (08:28)
[2024-07-20] MEDS: SOLU-CORTEF 50 MG IV ×3 (08:28→23:12)
[2024-07-20] MEDS: VIBRAMYCIN 100 MG PO ×2 (08:28→20:00)
[2024-07-20] MEDS: PROTONIX 40 MG PO (08:28)
[2024-07-20] MEDS: SODIUM BICARBONATE 650 MG PO ×3 (08:29→21:37)
[2024-07-20 08:33] LABS: Glucose - Point of Care 81 mg/dl (70-99)
[2024-07-20] MEDS: PROGRAF 1.5 MG PO (08:40)
[2024-07-20] MEDS: LOPID 600 MG PO ×2 (08:42→20:00)
[2024-07-20] MEDS: CELLCEPT 750 MG PO ×2 (08:50→20:00)
[2024-07-20] MEDS: VISBIOME 2 CAP PO (09:01)
[2024-07-20] MEDS: LANTUS SC (09:01)
--- NOTE | 2024-07-20 09:20 | W.PN.ID1 ---
Date of Service
Date of Service: July 20, 2024
Today's Communication
- c/w zosyn
- completing doxycycline x7 days today
Assessment / Plan
Acute hypoxemic resp failure - baseline O2 requirement 8L
Shock - resolved
Enteritis/ileus
Heart Transplantation 2001
Immunosuppression
Pulmonary HTN - end stage
Possible pneumonia
BHUMI on CKD - progressing
- blood cultures x2 no growth to date
- sputum sample - zeinab albicans - usual resp bianca
- c/w zosyn
- completing doxycycline x7 days today
- medium term prognosis poor
Chief Complaint
-: Other (shock, enteritis; immunosuppression)
Subjective / Review of Systems
remains afebrile
bp stable
back on high flow nc
Vital Signs / Physical Exam
Vital Signs
Vital Signs
Temp Pulse Resp BP Pulse Ox
97.2 F 109 20 143/93 93
07/20/24 02:44 07/20/24 08:28 07/20/24 08:18 07/20/24 08:28 07/20/24 08:24
Physical Exam
Constitutional: Acutely Ill and Chronically Ill
Cardiovascular: Regular Rate and S1/S2; Negative Murmur or Rub
Pulmonary: Clear and Symmetric; Negative Wheezes or Rales
Gastrointestinal: Soft, Non Tender, Non Distended and Normal Bowel Sounds
Skin: Warm and Dry; Negative Rash or Jaundice
Objective Data
Lab Data
Lab Results
07/20/24 02:50
07/20/24 02:49
PT 18.7 Sec (11.4-14.6) H 07/16/24 13:38
INR 1.53 07/16/24 13:38
APTT Cancelled 07/15/24 17:30
Estimated Creat Clear 32 ml/min 07/20/24 02:49
Lactic Acid Cancelled 07/13/24 23:20
Total Bilirubin 0.9 mg/dl (0.2-1.3) 07/20/24 02:49
AST 22 U/L (17-59) 07/20/24 02:49
ALT 13 U/L (0-50) 07/20/24 02:49
Alkaline Phosphatase 78 U/L (38-126) 07/20/24 02:49
Most recent labs reviewed.
Micro Results:
07/13/24 10:04 Blood Culture - Final
Blood/Venous No Growth - Final Report
07/13/24 10:04 Blood Culture - Final
Blood/Venous No Growth - Final Report
07/15/24 15:37 Respiratory Culture - Final
Sputum Zeinab albicans
Gram Stain - Final
07/14/24 02:16 Urine Culture - Final
Urine No Significant Growth
[2024-07-20 09:32] LABS: COVID-19 Antigen Negative (Negative)
--- NOTE | 2024-07-20 10:39 | W.PN.NEPH.PH ---
Today's Communication / Plan
-
Follow BMP
Chest CT done this morning awaiting report
Maintains on 20 mg IV Lasix
Assessment/Plan
-
Assessment
BHUMI CKD3-baseline cr 1.3-1.5
Hypotension
Pneumonia
Enteritis
AAA, EVAR, type II endoleak
Diabetes mellitus type 2
Orthotopic heart transplant
COPD
Plan
BHUMI-UA microhematuria with zabala
Cause of BHUMI likely from hypotension, sepsis, contrast exposure, Fena 0.2 low.
Creatinine back up to 1.7, nonoliguric 2600cc
met acidosis stable, continued po bicarb
given his tenuous resp status not planning IVF
Maintain Zabala catheter for now
Calcium dropping, replete IV prn
On midodrine to maintain mean arterial pressure
d/w pt and
-
-
Date of Service: July 20, 2024
CC / HPI / ROS
-
Chief Complaint:
BHUMI
History of Present Illness:
cr up to 1.7
non oliguric with zabala
wt no change, BP stable on midodrine
on high flow O2
Low blood sugars
Review of Systems:
no pain or n/v
no fever
More short of breath
Labs
-
Labs:
WBC 9.3 10^3/uL (4.8-10.8) 07/20/24 02:50
RBC 5.05 10^6/uL (4.70-6.10) 07/20/24 02:50
Hgb 14.3 g/dL (13.0-18.0) 07/20/24 02:50
Hct 44.0 % (39.0-52.0) 07/20/24 02:50
Plt Count 151 10^3/uL (130-400) D 07/20/24 02:50
Sodium 143 mmol/L (135-145) 07/20/24 02:49
Potassium 3.7 mmol/L (3.5-5.1) D 07/20/24 02:49
Chloride 105 mmol/L (98-107) 07/20/24 02:49
Carbon Dioxide 25 mmol/L (22-30) 07/20/24 02:49
BUN 68 mg/dl (9-20) H 07/20/24 02:49
Creatinine 1.7 mg/dL (0.7-1.3) H 07/20/24 02:49
eGFR 39.75 07/20/24 02:49
Glucose 65 mg/dl (70-99) L 07/20/24 02:49
Calcium 8.4 mg/dl (8.4-10.2) D 07/20/24 02:49
Iie-Q-Zdqpmwmcbcs Pept 4540 pg/ml 07/19/24 02:56
Albumin 3.4 g/dl (3.5-5.0) L D 07/20/24 02:49
Physical Exam
-
Vital Signs:
Vital Signs
Temp Pulse Resp BP Pulse Ox
96.9 F L 109 20 143/93 93
07/20/24 07:55 07/20/24 08:28 07/20/24 08:18 07/20/24 08:28 07/20/24 08:24
Cardiovascular:: Regular rate and rhythm
Respiratory:: Bilateral: Coarse
Lung Excursion:: Normal
Abdomen:: Nontender and Soft
Bowel Sounds:: Normal
Extremity Edema:: None: Bilateral:
Zabala Catheter: Yes
[2024-07-20 10:57] LABS: Glucose - Point of Care 66 mg/dl (70-99)
--- NOTE | 2024-07-20 11:03 | PTCARENOTE ---
Pt to ct scan and back without incident. Pt was on NRB 15% O2 POX 92-95
[2024-07-20 11:27] LABS: Glucose - Point of Care 78 mg/dl (70-99)
[2024-07-20 12:08] LABS: TSH 0.45 uIU/ml (0.47-4.68)
[2024-07-20 13:38] LABS: Glucose - Point of Care 165 mg/dl (70-99)
[2024-07-20 15:58] LABS: Glucose - Point of Care 142 mg/dl (70-99)
--- NOTE | 2024-07-20 16:28 | W.PN.UPDATE ---
Update Note
Progress Note Update
Seen and examined by me independently in collaboration with the medical sociologist.
Lab data and imaging data reviewed.
Addendum as below :
Patient became more hypoxic yesterday evening requiring high flow oxygen again.
No chest pain. Cough not much productive phlegm.
With bilateral foot edema, elevated BNP compared to admission could not rule out possible CHF. BNP elevation may be secondary to right heart increased pressures. Continue with a trial of Lasix along with antibiotic for possible pneumonia. Check a
chest CT to evaluate further parenchymal lung abnormalities. Discussed with pulmonary today.
Resume Eliquis as hematuria resolved.
Decreased oral intake. Reduce Lantus. Hemoglobin A1c 7.3.
Total time spent on today's encounter was 52 minutes which included time spent in counseling the patient/family regarding diagnosis and treatment plan as listed above, goals of care, and symptom management. Case was discussed with nursing staff,
specialists, and care coordinators/case management. All labs and imaging personally reviewed by me. Remainder the time spent in detailed review of previous records, lab data, imaging, and other medical provider documentation.
[2024-07-20] MEDS: ELIQUIS 5 MG PO (20:00)
[2024-07-20] MEDS: PROGRAF 1 MG PO (21:37)
[2024-07-20] MEDS: CRESTOR 20 MG PO (21:37)
[2024-07-20] MEDS: LANTUS 0.12 UNITS SC (21:38)
[2024-07-20 21:45] LABS: Glucose - Point of Care 124 mg/dl (70-99)
--- NOTE | 2024-07-20 23:35 | PTCARENOTE ---
assumed care of patient, pt is AAOx3, able to make needs known. on HFNC 50L 55% 91-94%. productive cough, pt using yankour by self. pt still with some loose soft stools, able to use BSC x1 assist. zabala intact. zabala draining yellow urine at
beginning of shift, pt did get dose of eliquis that was restarted tonight. after midnight it was noted that urine in zabala bag beginning to turn more pink/bloody. notified covering FOOD AND BEVERAGE SERVER. pt monitor for now. pt complaints of pain. care ongoing.
[2024-07-21] VITALS (12 sets, daily range): BP systolic 133–155; BP diastolic 83–133; BMI 22.0
[2024-07-21 03:23] LABS: Glucose - Point of Care 120 mg/dl (70-99)
[2024-07-21 03:26] LABS: % Basophils 0.1 % (0-2); % Immature Granulocytes 0.7 % (0-0.5); % Lymphocytes 17.5 % (20.5-51.1); % Monocytes 11.3 % (1.7-9.3); % Neutrophils 70.4 % (42.2-75.2); Absolute Immature Granulocytes 0.1 10^3/uL (0-0.05); Absolute Lymphocytes 1.4 10^3/uL (1.2-3.4); Absolute Monocytes 0.9 10^3/uL (0.1-0.6); Absolute Neutrophils 5.7 10^3/uL (1.4-6.5); Hematocrit 40.3 % (39.0-52.0); Mean Corp Hgb Conc. 32.3 g/dL (33.0-37.0); Mean Corpuscular Volume 86.7 fL (80.0-94.0); Mean Platelet Volume 11.9 fL (7.4-10.4); Nucleated Red Blood Cells % 0 % (-); Platelet Count 122 10^3/uL (130-400); Red Blood Cell Count 4.65 10^6/uL (4.70-6.10); Red Cell Dist. Width 14.5 % (11.5-14.5); White Blood Cell Count 8.2 10^3/uL (4.8-10.8)
[2024-07-21] MEDS: OCEAN, SALINE MIST 2 SPRAYS NASAL (03:41)
[2024-07-21 04:19] LABS: ALT (SGPT) 13 U/L (0-50); AST (SGOT) 21 U/L (17-59); Albumin 2.9 g/dl (3.5-5.0); Alkaline Phosphatase 66 U/L (38-126); Blood Urea Nitrogen 64 mg/dl (9-20); Carbon Dioxide 26 mmol/L (22-30); Chloride 103 mmol/L (98-107); Estimated Creatinine Clearance 42 ml/min; Glucose 112 mg/dl (70-99); Potassium 3.5 mmol/L (3.5-5.1); Sodium 140 mmol/L (135-145); Total Bilirubin 0.8 mg/dl (0.2-1.3); Total Protein 5.5 g/dl (6.3-8.2); eGFR 54.85
[2024-07-21] MEDS: SYNTHROID 175 MCG PO (06:04)
[2024-07-21] MEDS: LOPRESSOR 5 MG IV ×4 (06:04→23:27)
[2024-07-21] MEDS: ZOSYN 50 IV ×4 (06:05→23:26)
[2024-07-21 08:10] LABS: Glucose - Point of Care 65 mg/dl (70-99)
[2024-07-21] MEDS: LANTUS SC (08:22)
[2024-07-21] MEDS: NOVOLOG FLEXPEN-MODERATE RESISTANCE SC ×3 (08:22→17:17)
[2024-07-21] MEDS: VISBIOME 2 CAP PO (08:25)
[2024-07-21] MEDS: SYMBICORT 80/4.5 MCG INHALER 2 PUFF INH ×2 (08:26→19:18)
[2024-07-21] MEDS: SPIRIVA RESPIMAT 2.5 MCG 2 PUFF INH (08:26)
[2024-07-21] MEDS: SOLU-CORTEF 50 MG IV (08:26)
[2024-07-21] MEDS: CELLCEPT 750 MG PO ×2 (08:27→19:59)
[2024-07-21] MEDS: ELIQUIS 5 MG PO ×2 (08:31→21:30)
[2024-07-21] MEDS: PROGRAF 1.5 MG PO (08:31)
[2024-07-21] MEDS: LOPID 600 MG PO ×2 (08:31→20:00)
[2024-07-21] MEDS: FLOMAX 0.4 MG PO (08:31)
[2024-07-21] MEDS: NEURONTIN 300 MG PO ×3 (08:31→21:31)
[2024-07-21] MEDS: SODIUM BICARBONATE 650 MG PO ×2 (08:31→20:00)
[2024-07-21] MEDS: LASIX 20 MG IV (08:32)
[2024-07-21] MEDS: PROTONIX 40 MG PO (08:33)
--- NOTE | 2024-07-21 08:36 | W.PN.HOSP.TC ---
Today's Communication/Plan
-
C/w abx. C/w Eliquis. Holding insulin until tomorrow AM. Wean O2 as able for saturations >90%
Assessment / Plan
Assessment / Plan
83 year old male
Patient back on high flow overnight.
#Diarrhea - 3 BMs/d, loose, NB. Likely from IV Abx. Adding probiotic
#Acute Hypoxic Respiratory Failure - currently on mid flow 9L w/ sats in low 80s. Possible contributory pneumonia, on abx as below, though less likely given significant respiratory complications/pulm fibrosis/COPD/h/o lung cancer. Will continue to
wean to home 8L with saturations >90%.
- Pulm following.
#BHUMI on CKD Stage IIIa - Pre-renal (patient required pressors) vs. contrast induced
- Electronic Installer bump to 2.3 on admission, now down to baseline, around 1.4-1.5. Sodium bicarb for acidosis per nephro.
#Sinus Tachycardia
- c/w rate control Lopressor 5mg IV q6 w/ q4 prn. May consider transitioning to PO dosing in anticipation for discharge as his respiratory status hopefully improves.
#Septic Shock, secondary to infection, intra-abdominal vs. urinary vs. respiratory
[Hypotensive requiring pressure support w/ levophed, tachycardic, tachypneic, leukocytosis, lactic acidosis w/ probably source of infection]
- s/p 1L IVF, likely less than sepsis dosing due to history of heart transplant. CXR showing sm bl pleural effusions.
- COVID negative. Blood Cultures NGx48 hours, UA +, urine culture negative.
- Received one dose of IV Cefepime/Flagyl in ED. Abx per ID.
- Off pressors. Stopping midodrine.
- ID following.
#Enteritis/Ileus (resolved)
#Cecal Colitis (resolved)
- CT findings suggestive of Enteritis/Ileus w/ Cecal Colitis, no appendicitis. No evidence for bowel ischemia.
- GI consulted, no plans for endoscopy/colonoscopy given current clinical condition. If develops diarrhea can consider stool studies.
- Abd XR showing gaseous distention in the small bowel in the LUQ. CT on 07/13 showed calcified stones in gallbladder.
-Tolerating low residue/low lactose diet
- Appreciate GI recs.
#Constipation (resolved) - Had bowel movements. C/w Miralax/Ducolax prn.
#H/o Heart Failure, s/p Heart transplant 2001 (on chronic immunosuppression)
- There was a discrepancy in dosing; cleared up misunderstanding with the patient who takes 'THREE and TWO' of the 0.5mg tablets, equalling his home doses of 1.5mg and 1mg, respectively.
- c/w tacrolimus & cellcept.
#Pulmonary Hypertension - recent echo 07/13/24 showing PASP 75-80 mmHg. Likely contributing to his chronic hypoxia.
#AAA s/p EVAR w/ endoleak - CT 07/13/24 showing stable endoleak, patent SMA and celiac a. Evaluated by vascular, felt to be stable and noncontributory to presentation.
#COPD - on chronic O2 supplementation at home 8L NC.
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
#Essential Hypertension - holding po metoprolol and enalapril (due to BHUMI). cardiology/nephro following.
#Hypercholesterolemia - c/w gemfibrozil
#IDDM - MDISS. Hypoglycemia. Holding basal for 24, observe glucose trend.
#History of PE - Off heparin ggt, platelet drop. Will resume Eliquis.
Diet - Full Liquids
DVT Ppx - Holding Eliquis.
Code Status - DNR
Anticipated Discharge: > 48 hours
Subjective/Interval History
-
Feeling well this morning. Is symptomatic when he desats during movement. No new abd pain or diarrhea. His urine became red after restarting Eliquis but has since returned to yellow. Bout of hypoglycemia this morning. Says he is eating well and
tolerating his low residue/low lactose diet
Objective Data
-
Labs:
Laboratory Results
07/21/24
03:16
WBC 8.2
Hgb 13.0
Hct 40.3
Plt Count 122 L
Sodium 140
Potassium 3.5
Chloride 103
Carbon Dioxide 26
BUN 64 H
Creatinine 1.3
Glucose 112 H
Calcium 8.0 L
Total Bilirubin 0.8
AST 21
ALT 13
Alkaline Phosphatase 66
Vital Signs:
Vital Signs
Temp Pulse Resp BP Pulse Ox
97.9 F 111 23 155/99 90
07/21/24 02:54 07/21/24 08:32 07/21/24 08:27 07/21/24 08:32 07/21/24 08:27
I&O
07/20/24 07/21/24 07/22/24
06:59 06:59 06:59
Intake Total 1260 / 1260 340 / 340
Output Total 1750 / 1750 1900 / 1900
Balance -490 / -490 -1560 / -1560
Review of Systems
-
History Source: Patient
All other systems: Reviewed and negative
Constitutional: Reports No Symptoms
EENT: Reports No Symptoms Reported
Respiratory: Reports Trouble Breathing
Cardiac: Reports No Symptoms
Abdomen/GI: Reports No Symptoms
Breast: Reports N/A
Genitourinary: Reports No Symptoms
Musculoskeletal: Reports No Symptoms
Skin: Reports No Symptoms
Neuro: Reports No Symptoms
Physical Exam
-
General: Well Developed, Well Nourished, No Apparent Distress and Appears Chronically Ill
HEENT: Normocephalic, Atraumatic, Moist Mucous Membranes, Anicteric, Gould Conjunctivae, PERRLA, Nose Appears Normal, Ears Appear Normal and Oxygen (High Flow)
Respiratory: Rales, Rhonchi and Decreased Breath Sounds; Negative Wheezes
Cardiac: S1/S2, Irregular Rhythm and Tachycardic; Negative Murmur or Rub
Breast: N/A
GI: Soft, Nontender, Nondistended and Normal Bowel Sounds
Genito-urinary: Clear Urine and Victoria
Musculoskeletal: No Clubbing, No Cyanosis and No Edema
Skin: Warm, Dry and IV Access / Catheter Site
Neuro: AO x 3 and Nonfocal/Grossly Intact
[2024-07-21 08:37] LABS: Glucose - Point of Care 80 mg/dl (70-99)
--- NOTE | 2024-07-21 10:21 | W.PN.ID1 ---
Date of Service
Date of Service: July 21, 2024
Today's Communication
- c/w zosyn
Assessment / Plan
Acute hypoxemic resp failure - baseline O2 requirement 8L
Shock - resolved
Enteritis/ileus
Heart Transplantation 2001
Immunosuppression
Pulmonary HTN - end stage
Possible pneumonia
BHUMI on CKD - progressing
- blood cultures x2 no growth to date
- sputum sample - zeinab albicans - usual resp bianca
- c/w zosyn
- medium term prognosis poor
Chief Complaint
-: Other (shock, enteritis; immunosuppression)
Subjective / Review of Systems
afebrile
bp stable
remains on high flow NC 50L, 55%
productive cough
no event overnight
in good spirits, in chair
Vital Signs / Physical Exam
Vital Signs
Vital Signs
Temp Pulse Resp BP Pulse Ox
98.1 F 111 23 155/99 90
07/21/24 07:05 07/21/24 08:32 07/21/24 08:27 07/21/24 08:32 07/21/24 08:27
Physical Exam
Constitutional: Chronically Ill
Cardiovascular: Regular Rate and S1/S2; Negative Murmur or Rub
Pulmonary: Clear, Symmetric and Non Labored; Negative Wheezes or Rales
Gastrointestinal: Soft, Non Tender, Non Distended and Normal Bowel Sounds
Skin: Warm and Dry; Negative Rash or Jaundice
Objective Data
Lab Data
Lab Results
07/21/24 03:16
07/21/24 03:16
PT 18.7 Sec (11.4-14.6) H 07/16/24 13:38
INR 1.53 07/16/24 13:38
APTT Cancelled 07/15/24 17:30
Estimated Creat Clear 42 ml/min 07/21/24 03:16
Lactic Acid Cancelled 07/13/24 23:20
Total Bilirubin 0.8 mg/dl (0.2-1.3) 07/21/24 03:16
AST 21 U/L (17-59) 07/21/24 03:16
ALT 13 U/L (0-50) 07/21/24 03:16
Alkaline Phosphatase 66 U/L (38-126) 07/21/24 03:16
Most recent labs reviewed.
CT Scan: Image Reviewed (impressive copd) and Report Reviewed (Small bilateral pleural effusions with associated bilateral lower lobe atelectasis and/or pneumonia.)
Micro Results:
07/13/24 10:04 Blood Culture - Final
Blood/Venous No Growth - Final Report
07/13/24 10:04 Blood Culture - Final
Blood/Venous No Growth - Final Report
07/15/24 15:37 Respiratory Culture - Final
Sputum Zeinab albicans
Gram Stain - Final
07/14/24 02:16 Urine Culture - Final
Urine No Significant Growth
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
[2024-07-21 10:48] LABS: Glucose - Point of Care 163 mg/dl (70-99)
--- NOTE | 2024-07-21 13:19 | W.PN.NEPH.PH ---
Today's Communication / Plan
-
cont lasix
Assessment/Plan
-
Assessment
BHUMI CKD3-baseline cr 1.3-1.5
Hypotension
Pneumonia
Enteritis
AAA, EVAR, type II endoleak
Diabetes mellitus type 2
Orthotopic heart transplant
COPD
Plan
BHUMI-UA microhematuria with zabala
Cause of BHUMI likely from hypotension, sepsis, contrast exposure, Fena 0.2 low.
Creatinine back down to 1.3, nonoliguric
met acidosis stable, decrease po bicarb
probably voiding trial in am if cr stable
corrected ranjit normal
bp stable on midodrine
cont IV lasix
BP stable off midodrine
wean steroids per pulm
d/w pt
-
-
Date of Service: July 21, 2024
CC / HPI / ROS
-
Chief Complaint:
BHUMI
History of Present Illness:
cr down to 1.3
non oliguric with zabala
wt no change, BP stable
on high flow O2
CT chest noted pleural effusion bilat
Review of Systems:
no pain or n/v
no fever
no change in sob
Labs
-
Labs:
WBC 8.2 10^3/uL (4.8-10.8) 07/21/24 03:16
RBC 4.65 10^6/uL (4.70-6.10) L 07/21/24 03:16
Hgb 13.0 g/dL (13.0-18.0) 07/21/24 03:16
Hct 40.3 % (39.0-52.0) 07/21/24 03:16
Plt Count 122 10^3/uL (130-400) L 07/21/24 03:16
Sodium 140 mmol/L (135-145) 07/21/24 03:16
Potassium 3.5 mmol/L (3.5-5.1) 07/21/24 03:16
Chloride 103 mmol/L (98-107) 07/21/24 03:16
Carbon Dioxide 26 mmol/L (22-30) 07/21/24 03:16
BUN 64 mg/dl (9-20) H 07/21/24 03:16
Creatinine 1.3 mg/dL (0.7-1.3) 07/21/24 03:16
eGFR 54.85 07/21/24 03:16
Glucose 112 mg/dl (70-99) H 07/21/24 03:16
Calcium 8.0 mg/dl (8.4-10.2) L 07/21/24 03:16
Pxy-P-Xvtqmszzjkr Pept 4540 pg/ml 07/19/24 02:56
Albumin 2.9 g/dl (3.5-5.0) L 07/21/24 03:16
Physical Exam
-
Vital Signs:
Vital Signs
Temp Pulse Resp BP Pulse Ox
97.6 F 121 18 141/98 94
07/21/24 11:15 07/21/24 13:16 07/21/24 10:00 07/21/24 13:16 07/21/24 10:00
Cardiovascular:: Regular rate and rhythm
Lung Excursion:: Normal (decreased BS)
Abdomen:: Nontender and Soft
Bowel Sounds:: Normal
Extremity Edema:: None: Bilateral:
Zabala Catheter: Yes
[2024-07-21 13:27] LABS: Glucose - Point of Care 116 mg/dl (70-99)
--- NOTE | 2024-07-21 15:06 | PN.CDI ---
CDI
- -
CDI:
Physician Documentation Request
Admit Date: 07/13/24 12:58
Dear Doctor Jose,
Please review the following and provide your response in the progress notes.
Clinical Indicators:
PN, 07/20
#BHUMI on CKD Stage III -[place] bump to 2.3, now down to 1.7.
#...Prior baseline somewhere around 1.4-1.5. Sodium bicarb for acidosis per nephro.
Nephrology, PN, 07/20
#BHUMI CKD3-baseline cr 1.3-1.5
#Hypotension
#BHUMI-UA microhematuria with zabala
#Cause of BHUMI likely from hypotension, sepsis,
#...contrast exposure, Fena 0.2 low.
#Creatinine back up to 1.7, nonoliguric 2600cc
Laboratory Tests
07/13/24 07/14/24 07/15/24
10:04 08:15 04:30
Creatinine 1.3 1.5 H 1.6 H
eGFR 54.85 46.19 42.75
07/16/24 07/17/24 07/18/24
04:56 05:19 03:20
Creatinine 1.9 H 2.3 H 2.1 H
eGFR 34.79 27.66 30.85
07/19/24 07/20/24
02:56 02:49
Creatinine 1.3 1.7 H
eGFR 54.85 39.75
Based on the above information and the clinical indicators in the record, please clarify in the Progress Notes which of the following most accurately represents the patient's renal status:
BHUMI with ATN
Contrast induced nephropathy
Acute kidney injury on baseline CKD, (specify stage of CKD)
Progression of underlying CKD, (specify current stage of CKD)
Other(please specify)
Criteria for BHUMI*
1 Increase in serum creatinine by > or = to 0.3 mg/dL (> or = to 26.5 micromol/L) within 48 hours, OR
2 Increase in serum creatinine to > or = to 1.5 times baseline, which is known or presumed to have occurred within 7 days, OR
3 Urine volume < 0.5 nL/kg/hour for six hours
Stages of Chronic Kidney Disease*
Level Description GFR
G1 Normal or High >90
G2 Mildly decreased 60-89
G3a Mildly to moderately decreased 45-59
G3b Moderately to severely decreased 30-44
G4 Severely decreased 15-29
G5 Kidney failure <15
Use of terms such as suspected, likely, concern for, or probable (associated with a specific diagnosis that is being evaluated, monitored, or treated as if it exists) are acceptable and can be coded in the inpatient setting, when documented at the
time of discharge.
Thank you,
Loreta Aldana RN BSN CCDS
CDI Specialist
please contact via tiger text
Please use your independent medical judgment in providing your response.
*Source: Kidney Disease: Improving Global Outcomes (KDIGO) 2012
--- NOTE | 2024-07-21 15:24 | W.PN.UPDATE ---
Update Note
Progress Note Update
Seen and examined by me independently in collaboration with the outside medical sales representative.
Lab data and imaging data reviewed.
Addendum as below :
Patient feels slightly improved with his breathing. He is FiO2 fraction is coming down on high flow.
No active bronchospasm noted.
Continue with airway clearance mechanisms. Decrease stress dose steroids. Continue with antibiotics per ID.
Chest CT from yesterday noted with left basilar consolidation.
[2024-07-21 16:39] LABS: Glucose - Point of Care 152 mg/dl (70-99)
--- NOTE | 2024-07-21 19:24 | PTCARENOTE ---
Rec'd pt this AM. OOB to chair most of the day, X1 to BSC for BM. zabala draining clear, yellow urine. Blood sugar low this AM. Hypoglycemic protocol in place. aware. orders placed.
[2024-07-21] MEDS: ELIQUIS PO (20:00)
[2024-07-21] MEDS: SOLU-CORTEF 25 MG IV (21:30)
[2024-07-21] MEDS: CRESTOR 20 MG PO (21:31)
[2024-07-21] MEDS: PROGRAF 1 MG PO (21:32)
[2024-07-22] VITALS (12 sets, daily range): BP systolic 114–162; BP diastolic 86–120; PULSE 119; O2SAT 91; BMI 21.0
[2024-07-22 00:11] LABS: Glucose - Point of Care 166 mg/dl (70-99)
--- NOTE | 2024-07-22 03:51 | PTCARENOTE ---
Patient AAOx3, pleasant. Pt had a new IV placed in left forearm, found to be bleeding, paged IV team, dressing changed the bleeding stopped. Pt helped back into bed with standby assist of 1. Pt remains on HFNC Sp02 95%, NRB for recovery. OOB to BSC
for small BM. Victoria draining clear yellow urine. Due to hypoglycemia 0300 blood sugar rechecked it was 94. Using call moura appropriately, call moura is within reach.
[2024-07-22 03:52] LABS: Glucose - Point of Care 94 mg/dl (70-99)
[2024-07-22] MEDS: LOPRESSOR 5 MG IV ×4 (05:57→23:58)
[2024-07-22] MEDS: SYNTHROID 175 MCG PO (05:58)
[2024-07-22] MEDS: ZOSYN 50 IV ×3 (05:58→17:29)
[2024-07-22 06:28] LABS: % Basophils 0.1 % (0-2); % Eosinophils 0.2 % (0-6); % Immature Granulocytes 0.7 % (0-0.5); % Lymphocytes 28.9 % (20.5-51.1); % Monocytes 11.2 % (1.7-9.3); % Neutrophils 58.9 % (42.2-75.2); Absolute Immature Granulocytes 0.1 10^3/uL (0-0.05); Absolute Lymphocytes 3.2 10^3/uL (1.2-3.4); Absolute Monocytes 1.2 10^3/uL (0.1-0.6); Absolute Neutrophils 6.6 10^3/uL (1.4-6.5); Hematocrit 45.6 % (39.0-52.0); Hemoglobin 14.9 g/dL (13.0-18.0); Mean Corp Hgb Conc. 32.7 g/dL (33.0-37.0); Mean Corpuscular Hgb 28.3 pg (27.0-31.0); Mean Corpuscular Volume 86.7 fL (80.0-94.0); Mean Platelet Volume 12.8 fL (7.4-10.4); Nucleated Red Blood Cells % 0 % (-); Platelet Count 132 10^3/uL (130-400); Red Blood Cell Count 5.26 10^6/uL (4.70-6.10); Red Cell Dist. Width 14.4 % (11.5-14.5); White Blood Cell Count 11.1 10^3/uL (4.8-10.8)
[2024-07-22 06:31] LABS: ALT (SGPT) 15 U/L (0-50); AST (SGOT) 24 U/L (17-59); Albumin 3.5 g/dl (3.5-5.0); Alkaline Phosphatase 76 U/L (38-126); Blood Urea Nitrogen 59 mg/dl (9-20); Calcium 8.2 mg/dl (8.4-10.2); Carbon Dioxide 32 mmol/L (22-30); Chloride 97 mmol/L (98-107); Estimated Creatinine Clearance 43 ml/min; Glucose 75 mg/dl (70-99); Potassium 3.1 mmol/L (3.5-5.1); Sodium 140 mmol/L (135-145); Total Bilirubin 1.1 mg/dl (0.2-1.3); Total Protein 6.3 g/dl (6.3-8.2); eGFR > 60.00
[2024-07-22] MEDS: SPIRIVA RESPIMAT 2.5 MCG 2 PUFF INH (07:54)
[2024-07-22] MEDS: SYMBICORT 80/4.5 MCG INHALER 2 PUFF INH ×2 (07:55→21:00)
--- NOTE | 2024-07-22 08:14 | W.PN.HOSP.TC ---
Addendum entered and electronically signed by Bay Michaud MD 07/22/24 09:41:
Seen and examined by me independently in collaboration with the medical records field technician.
Lab data and imaging data reviewed.
Addendum as below :
Remains on same FiO2 as yesterday. Needs nonrebreather as rescue during exertion. Patient says he is not much better but no worse than yesterday but was seen slow improvement.
Tolerating diet. No diarrhea. No abdominal pain.
Denies any chest pain.
Chest-moving a bit more air. No wheeze. Bibasilar crackles.
Heart sounds S1 plus S2 heard with sinus tachycardia on the monitor.
Weight down to 141 pounds which is low for him. Despite that he still requiring high flow FiO2.
Suspect primary problem for hypoxia and his respiratory symptoms is lung related. No significant pulmonary hypertension. continue antibiotics for possible pneumonia per ID. Continue with inhalers, nebulizers and airway clearance per pulmonary.
I would continue with the diuretics for 1 more day and use as needed.
Will discuss with pulmonary regarding any role of treatments for pulmonary hypertension in house.
Original Note:
Today's Communication/Plan
-
c/t wean oxygen. Monitor sugars. C/w abx per ID. Replete potassium. Nephro following.
Assessment / Plan
Assessment / Plan
83 year old male
Patient still on high flow.
ACUTELY MANAGING
#Hypokalemia - 3.1 this AM. Likely due to Lasix as net negative 2400ccs. Replete with PO KCL
#Acute Hypoxic Respiratory Failure - currently on mid flow 9L w/ sats in low 80s. Possible contributory pneumonia, on abx as below, though less likely given significant respiratory complications/pulm fibrosis/COPD/h/o lung cancer. Will continue to
wean to home 8L with saturations >90%.
- Pulm following.
#BHUMI on CKD Stage IIIa - Pre-renal (patient required pressors) vs. contrast induced
- Vein Pumper bump to 2.3 on admission, now down to baseline, around 1.4-1.5. Sodium bicarb for acidosis per nephro.
#Sinus Tachycardia
- c/w rate control Lopressor 5mg IV q6 w/ q4 prn. May consider transitioning to PO dosing in anticipation for discharge as his respiratory status hopefully improves.
#Septic Shock, secondary to infection, intra-abdominal vs. urinary vs. respiratory
[Hypotensive requiring pressure support w/ levophed, tachycardic, tachypneic, leukocytosis, lactic acidosis w/ probably source of infection]
- s/p 1L IVF, likely less than sepsis dosing due to history of heart transplant. CXR showing sm bl pleural effusions.
- COVID negative. Blood Cultures NGx48 hours, UA +, urine culture negative.
- Received one dose of IV Cefepime/Flagyl in ED. Abx per ID.
- Off pressors. Stopping midodrine.
- ID following.
#Enteritis/Ileus
#Cecal Colitis
- CT findings suggestive of Enteritis/Ileus w/ Cecal Colitis, no appendicitis. No evidence for bowel ischemia.
- GI consulted, no plans for endoscopy/colonoscopy given current clinical condition. If develops diarrhea can consider stool studies.
- Abd XR showing gaseous distention in the small bowel in the LUQ. CT on 07/13 showed calcified stones in gallbladder.
-Tolerating low residue/low lactose diet
- Appreciate GI recs.
#Hypoglycemia
- Held Insulin overnight, sugars 75 this AM.
#History of PE - Off heparin ggt, platelet drop. Will resume Eliquis.
ACUTE RESOLVED
#Diarrhea (resolved) - 3 BMs/d, loose, NB. Likely from IV Abx. C/w probiotic
#Constipation (resolved) - Had bowel movements. C/w Miralax/Ducolax prn.
STABLE CHRONIC
#H/o Heart Failure, s/p Heart transplant 2001 (on chronic immunosuppression)
- There was a discrepancy in dosing; cleared up misunderstanding with the patient who takes 'THREE and TWO' of the 0.5mg tablets, equalling his home doses of 1.5mg and 1mg, respectively.
- c/w tacrolimus & cellcept.
#Pulmonary Hypertension - recent echo 07/13/24 showing PASP 75-80 mmHg. Likely contributing to his chronic hypoxia.
#AAA s/p EVAR w/ endoleak - CT 07/13/24 showing stable endoleak, patent SMA and celiac a. Evaluated by vascular, felt to be stable and noncontributory to presentation.
#COPD - on chronic O2 supplementation at home 8L NC.
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
#Essential Hypertension - holding po metoprolol and enalapril (due to BHUMI). cardiology/nephro following.
#Hypercholesterolemia - c/w gemfibrozil
#IDDM - MDISS.
Diet - Low Residue/Low Lactose
DVT Ppx - Eliquis.
Code Status - DNR
Anticipated Discharge: > 48 hours
Subjective/Interval History
-
No acute events overnight. Feeling well this morning. Sugars this am were 75 after holding insulin all night.
Objective Data
-
Labs:
Laboratory Results
07/22/24
05:54
WBC 11.1 H
Hgb 14.9
Hct 45.6
Plt Count 132
Sodium 140
Potassium 3.1 L
Chloride 97 L
Carbon Dioxide 32 H
BUN 59 H
Creatinine 1.2
Glucose 75
Calcium 8.2 L
Total Bilirubin 1.1
AST 24
ALT 15
Alkaline Phosphatase 76
Vital Signs:
Vital Signs
Temp Pulse Resp BP Pulse Ox
97.8 F 106 24 157/98 93
07/22/24 07:21 07/22/24 07:59 07/22/24 07:59 07/22/24 06:27 02/06/25 08:00
I&O
07/21/24 07/22/24 07/23/24
06:59 06:59 06:59
Intake Total 340 / 340 480 / 480
Output Total 0 / 1900 2875 / 2875
Balance -1560 / -1560 -2395 / -2395
Review of Systems
-
History Source: Patient
All other systems: Reviewed and negative
Constitutional: Denies Fever or Chills
EENT: Reports No Symptoms Reported
Respiratory: Reports Trouble Breathing; Denies Cough, Wheezing or Pleurisy
Cardiac: Denies Chest Pain or Palpitations
Abdomen/GI: Denies Abdominal Pain, Nausea, Vomiting or Diarrhea
Breast: Reports N/A
Genitourinary: Reports No Symptoms
Musculoskeletal: Denies Joint Pain, Joint Swelling or Muscle Pain
Skin: Denies Itching or Rash
Neuro: Denies Headache or Numbness
Hematologic / Lymphatic: Denies Bleeding
Physical Exam
-
General: Well Developed, Well Nourished, No Apparent Distress, Comfortable and Appears Chronically Ill
HEENT: Normocephalic, Atraumatic, Moist Mucous Membranes, Anicteric, [place] Conjunctivae and PERRLA
Respiratory: Clear to Auscultation and Decreased Breath Sounds; Negative Wheezes, Rales or Rhonchi
Cardiac: S1/S2, Irregular Rhythm and Tachycardic
GI: Soft, Nontender, Nondistended and Normal Bowel Sounds
Genito-urinary: Clear Urine and Victoria
Musculoskeletal: No Clubbing, No Cyanosis and No Edema
Skin: Warm, Dry and IV Access / Catheter Site
Neuro: AO x 3
[2024-07-22 08:35] LABS: Glucose - Point of Care 72 mg/dl (70-99)
[2024-07-22] MEDS: NOVOLOG FLEXPEN-MODERATE RESISTANCE SC (08:43)
[2024-07-22] MEDS: VISBIOME 2 CAP PO (08:50)
[2024-07-22] MEDS: PROGRAF 1.5 MG PO (08:51)
[2024-07-22] MEDS: CELLCEPT 750 MG PO ×2 (08:51→19:27)
[2024-07-22] MEDS: SODIUM BICARBONATE 650 MG PO (08:54)
[2024-07-22] MEDS: PROTONIX 40 MG PO (08:54)
[2024-07-22] MEDS: FLOMAX 0.4 MG PO (08:55)
[2024-07-22] MEDS: LOPID 600 MG PO ×2 (08:55→19:27)
[2024-07-22] MEDS: ELIQUIS 5 MG PO ×2 (08:59→19:27)
[2024-07-22] MEDS: KCL 40 MEQ PO (08:59)
[2024-07-22] MEDS: SOLU-CORTEF 25 MG IV ×2 (08:59→19:28)
[2024-07-22] MEDS: LASIX 20 MG IV (09:00)
[2024-07-22] MEDS: NEURONTIN 300 MG PO ×3 (09:08→21:38)
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
--- NOTE | 2024-07-22 10:59 | W.PN.ID1 ---
Date of Service
Date of Service: July 22, 2024
Today's Communication
- c/w zosyn
- medium term prognosis poor
Assessment / Plan
Acute hypoxemic resp failure - baseline O2 requirement 8L
Shock - resolved
Enteritis/ileus
Heart Transplantation 2001
Immunosuppression
Pulmonary HTN - end stage
Possible pneumonia
BHUMI on CKD - progressing
- blood cultures x2 no growth to date
- sputum sample - zeinab albicans - usual resp bianca
- c/w zosyn
- medium term prognosis poor
Chief Complaint
-: Other (shock, enteritis; immunosuppression)
Subjective / Review of Systems
afebrile
bp stable
tolerating current therapy
Vital Signs / Physical Exam
Vital Signs
Vital Signs
Temp Pulse Resp BP Pulse Ox
97.8 F 115 16 153/116 89
07/22/24 07:21 07/22/24 08:00 07/22/24 08:00 07/22/24 09:00 07/22/24 08:00
Physical Exam
Constitutional: No Acute Distress and Chronically Ill
Cardiovascular: Regular Rate and S1/S2; Negative Murmur or Rub
Pulmonary: Clear and Symmetric; Negative Wheezes or Rales
Gastrointestinal: Soft, Non Tender, Non Distended and Normal Bowel Sounds
Skin: Warm and Dry; Negative Rash or Jaundice
Objective Data
Lab Data
Lab Results
07/22/24 05:54
07/22/24 05:54
PT 18.7 Sec (11.4-14.6) H 07/16/24 13:38
INR 1.53 07/16/24 13:38
APTT Cancelled 07/15/24 17:30
Estimated Creat Clear 43 ml/min 07/22/24 05:54
Lactic Acid Cancelled 07/13/24 23:20
Total Bilirubin 1.1 mg/dl (0.2-1.3) 07/22/24 05:54
AST 24 U/L (17-59) 07/22/24 05:54
ALT 15 U/L (0-50) 07/22/24 05:54
Alkaline Phosphatase 76 U/L (38-126) 07/22/24 05:54
Most recent labs reviewed.
Micro Results:
07/13/24 10:04 Blood Culture - Final
Blood/Venous No Growth - Final Report
07/13/24 10:04 Blood Culture - Final
Blood/Venous No Growth - Final Report
07/15/24 15:37 Respiratory Culture - Final
Sputum Zeinab albicans
Gram Stain - Final
07/14/24 02:16 Urine Culture - Final
Urine No Significant Growth
--- NOTE | 2024-07-22 12:05 | W.PN.NEPH.PH ---
Today's Communication / Plan
-
cont lasix , d/c po bicarb
Assessment/Plan
-
Assessment
BHUMI CKD3-baseline cr 1.3-1.5
Hypotension
Pneumonia
Enteritis
AAA, EVAR, type II endoleak
Diabetes mellitus type 2
Orthotopic heart transplant
COPD
Plan
BHUMI-UA microhematuria with zabala
BHUMI likely from hypotension, sepsis, contrast exposure, Fena 0.2 low.
Creatinine back down to 1.2 baseline, nonoliguric
met alkalosis now hold po bicarb
Ok for voiding trial
corrected ranjit normal
replace k
bp stable off midodrine
cont IV lasix -titrate as needed
wean steroids per pulm
d/w pt
nephro will s/o, call with ?s
-
-
Date of Service: July 22, 2024
CC / HPI / ROS
-
Chief Complaint:
BHUMI
History of Present Illness:
cr down to 1.2
non oliguric with zabala
wt no change, BP stable
on high flow O2
CT chest noted pleural effusion bilat
Review of Systems:
no pain or n/v
no fever
no change in sob
Labs
-
Labs:
WBC 11.1 10^3/uL (4.8-10.8) H 07/22/24 05:54
RBC 5.26 10^6/uL (4.70-6.10) 07/22/24 05:54
Hgb 14.9 g/dL (13.0-18.0) 07/22/24 05:54
Hct 45.6 % (39.0-52.0) 07/22/24 05:54
Plt Count 132 10^3/uL (130-400) 07/22/24 05:54
Sodium 140 mmol/L (135-145) 07/22/24 05:54
Potassium 3.1 mmol/L (3.5-5.1) L 07/22/24 05:54
Chloride 97 mmol/L (98-107) L 07/22/24 05:54
Carbon Dioxide 32 mmol/L (22-30) H 07/22/24 05:54
BUN 59 mg/dl (9-20) H 07/22/24 05:54
Creatinine 1.2 mg/dL (0.7-1.3) 07/22/24 05:54
eGFR > 60.00 07/22/24 05:54
Glucose 75 mg/dl (70-99) 07/22/24 05:54
Calcium 8.2 mg/dl (8.4-10.2) L 07/22/24 05:54
Lfp-D-Vcbpszohxjj Pept 4540 pg/ml 07/19/24 02:56
Albumin 3.5 g/dl (3.5-5.0) 07/22/24 05:54
Physical Exam
-
Vital Signs:
Vital Signs
Temp Pulse Resp BP Pulse Ox
97.8 F 115 16 153/116 89
07/22/24 11:22 07/22/24 08:00 07/22/24 08:00 07/22/24 09:00 07/22/24 08:00
Cardiovascular:: Regular rate and rhythm
Lung Excursion:: Normal (decreased BS)
Abdomen:: Nontender and Soft
Bowel Sounds:: Normal
Extremity Edema:: None: Bilateral:
Zabala Catheter: Yes
[2024-07-22 12:13] LABS: Glucose - Point of Care 220 mg/dl (70-99)
[2024-07-22] MEDS: NOVOLOG FLEXPEN-MODERATE RESISTANCE 3 UNITS SC (12:23)
--- NOTE | 2024-07-22 16:36 | CM ---
Patient with Hx Orthotopic heart transplant with Dx Acute Hypoxic Resp Failure, possible PNA. High flow O2. Receiving IV Lasix, IV Steroids, IV Abx. PT recommends skilled rehab.
Phone call to Stefany, patient's ; left message with responses to SNF referrals.
Plan follow patient's O2 needs.
Plan follow up with for SNF preference.
[2024-07-22 17:19] LABS: Glucose - Point of Care 274 mg/dl (70-99)
[2024-07-22] MEDS: NOVOLOG FLEXPEN-MODERATE RESISTANCE 5 UNITS SC (17:27)
--- NOTE | 2024-07-22 18:25 | PTCARENOTE ---
Victoria removed pt given urinal
[2024-07-22 21:29] LABS: Glucose - Point of Care 142 mg/dl (70-99)
[2024-07-22] MEDS: CRESTOR 20 MG PO (21:38)
[2024-07-22] MEDS: PROGRAF 1 MG PO (21:38)
[2024-07-23] VITALS (12 sets, daily range): BP systolic 102–158; BP diastolic 72–106; BMI 20.9
--- NOTE | 2024-07-23 02:07 | PTCARENOTE ---
Patient AAOx3, pleasant. Notable tremors. NSR to sinus tach on tele. Remains on HFNC, SpO2 96%. Pt dyspnea on exertion but has not required the NRB for recovery. Lungs coarse. Pt tolerating the respiratory vest therapy. Pt has a moist frequent
cough, pt suctions oral secretions. Pt urinated after zabala was removed and denies any difficulty. Pt OOB to [facility] x1 standby assist. Pt had 2 moderate loose BMs, unable to measure accurate amount of urine. Pt utilizing the call moura appropriately,
call moura is within reach.
[2024-07-23] MEDS: SYNTHROID 175 MCG PO (05:20)
[2024-07-23] MEDS: LOPRESSOR 5 MG IV ×4 (05:20→23:18)
[2024-07-23 05:42] LABS: % Basophils 0.1 % (0-2); % Eosinophils 0.5 % (0-6); % Immature Granulocytes 0.8 % (0-0.5); % Lymphocytes 27.8 % (20.5-51.1); % Monocytes 11.7 % (1.7-9.3); % Neutrophils 59.1 % (42.2-75.2); Absolute Eosinophils 0.1 10^3/uL (0-0.7); Absolute Immature Granulocytes 0.1 10^3/uL (0-0.05); Absolute Lymphocytes 2.9 10^3/uL (1.2-3.4); Absolute Monocytes 1.2 10^3/uL (0.1-0.6); Absolute Neutrophils 6.1 10^3/uL (1.4-6.5); Hematocrit 45.6 % (39.0-52.0); Hemoglobin 14.4 g/dL (13.0-18.0); Mean Corp Hgb Conc. 31.6 g/dL (33.0-37.0); Mean Corpuscular Hgb 28.1 pg (27.0-31.0); Mean Corpuscular Volume 88.9 fL (80.0-94.0); Nucleated Red Blood Cells % 0 % (-); Platelet Count 111 10^3/uL (130-400); Red Blood Cell Count 5.13 10^6/uL (4.70-6.10); Red Cell Dist. Width 14.2 % (11.5-14.5); White Blood Cell Count 10.4 10^3/uL (4.8-10.8)
[2024-07-23 06:10] LABS: ALT (SGPT) 14 U/L (0-50); AST (SGOT) 21 U/L (17-59); Albumin 2.9 g/dl (3.5-5.0); Alkaline Phosphatase 87 U/L (38-126); Blood Urea Nitrogen 59 mg/dl (9-20); Calcium 7.7 mg/dl (8.4-10.2); Carbon Dioxide 37 mmol/L (22-30); Chloride 100 mmol/L (98-107); Estimated Creatinine Clearance 40 ml/min; Glucose 145 mg/dl (70-99); Potassium 3.9 mmol/L (3.5-5.1); Sodium 143 mmol/L (135-145); Total Bilirubin 0.8 mg/dl (0.2-1.3); Total Protein 5.9 g/dl (6.3-8.2); eGFR 54.85
--- NOTE | 2024-07-23 06:52 | W.PN.HOSP.TC ---
Addendum entered and electronically signed by Bay Michaud MD 07/23/24 15:07:
Seen and examined by me independently in collaboration with the medical affairs director.
Lab data and imaging data reviewed.
Addendum as below :
Patient with slow improvement in his shortness of breath as well as hypoxia. This morning he is on 8 L via nasal cannula.
Moving more air without any wheeze.
Continue with oxygen therapy, immunotherapy, airway clearance treatments.
Weight has significantly decreased to 141 pounds which is his lowest. Will switch to Lasix as needed based on the weight gain of 3 pounds in 1 day.
Will attempt voiding trials today.
Dispo-[facility]
Original Note:
Today's Communication/Plan
-
Wean O2 as able, appreciate pulm recs. C/w low lactose/low residue diet.
Assessment / Plan
Assessment / Plan
83 year old male
Patient still on high flow.
ACUTELY MANAGING
#Acute Hypoxic Respiratory Failure - currently on mid flow 9L w/ sats in low 80s. Possible contributory pneumonia, on abx as below, though less likely given significant respiratory complications/pulm fibrosis/COPD/h/o lung cancer. Will continue to
wean to home 8L with saturations >90%.
- Chest PT
- Pulm following.
#Hypokalemia - 3.1 this AM. Likely due to Lasix as net negative 2400ccs. 3.9 today. Monitor and replete as needed.
#BHUMI on CKD Stage IIIa - Pre-renal (patient required pressors) vs. contrast induced
- [facility] bump to 2.3 on admission, now down to baseline, around 1.4-1.5.
- Victoria out, voiding without issue.
#HFpEF - will leave Lasix as 20mg IV prn if weight increases by more than 3lbs, otherwise caution for volume depletion.
#Sinus Tachycardia
- c/w rate control Lopressor 5mg IV q6 w/ q4 prn. May consider transitioning to PO dosing in anticipation for discharge as his respiratory status hopefully improves.
#Septic Shock, secondary to infection, intra-abdominal vs. urinary vs. respiratory
[Hypotensive requiring pressure support w/ levophed, tachycardic, tachypneic, leukocytosis, lactic acidosis w/ probably source of infection]
- s/p 1L IVF, likely less than sepsis dosing due to history of heart transplant. CXR showing sm bl pleural effusions.
- COVID negative. Blood Cultures NGx48 hours, UA +, urine culture negative.
- Received one dose of IV Cefepime/Flagyl in ED. Finished 10d Zosyn.
- Off pressors. Stopping midodrine.
- ID following.
#Enteritis/Ileus
#Cecal Colitis
- CT findings suggestive of Enteritis/Ileus w/ Cecal Colitis, no appendicitis. No evidence for bowel ischemia.
- GI consulted, no plans for endoscopy/colonoscopy given current clinical condition. If develops diarrhea can consider stool studies.
- Abd XR showing gaseous distention in the small bowel in the LUQ. CT on 07/13 showed calcified stones in gallbladder.
-Tolerating low residue/low lactose diet
- Appreciate GI recs.
#Hypoglycemia
#IDDM
- Held Insulin overnight due to hypoglycemia. Start on 12U long acting QHS, rather than BID. MDISS.
#History of PE - Off heparin ggt, platelet drop. C/w Eliquis.
ACUTE RESOLVED
#Diarrhea (resolved) - 3 BMs/d, loose, NB. Likely from IV Abx. C/w probiotic
#Constipation (resolved) - Had bowel movements. C/w Miralax/Ducolax prn.
STABLE CHRONIC
#H/o Heart Failure, s/p Heart transplant 2001 (on chronic immunosuppression)
- There was a discrepancy in dosing; cleared up misunderstanding with the patient who takes 'THREE and TWO' of the 0.5mg tablets, equalling his home doses of 1.5mg and 1mg, respectively.
- c/w tacrolimus & cellcept.
#Pulmonary Hypertension - recent echo 07/13/24 showing PASP 75-80 mmHg. Likely contributing to his chronic hypoxia.
#AAA s/p EVAR w/ endoleak - CT 07/13/24 showing stable endoleak, patent SMA and celiac a. Evaluated by vascular, felt to be stable and noncontributory to presentation.
#COPD - on chronic O2 supplementation at home 8L NC.
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
#Essential Hypertension - holding po metoprolol and enalapril (due to BHUMI). cardiology/nephro following.
#Hypercholesterolemia - c/w gemfibrozil
Diet - Low Residue/Low Lactose
DVT Ppx - Eliquis.
Code Status - DNR
Anticipated Discharge: > 48 hours
Subjective/Interval History
-
Feeling well this morning. Still having looser stools, but no new fevers or chills, no new abdominal pain, nausea or vomiting.
Objective Data
-
Labs:
Laboratory Results
07/23/24
05:23
WBC 10.4
Hgb 14.4
Hct 45.6
Plt Count 111 L
Sodium 143
Potassium 3.9 D
Chloride 100
Carbon Dioxide 37 H
BUN 59 H
Creatinine 1.3
Glucose 145 H
Calcium 7.7 L
Total Bilirubin 0.8
AST 21
ALT 14
Alkaline Phosphatase 87
Vital Signs:
Vital Signs
Temp Pulse Resp BP Pulse Ox
98.1 F 95 13 142/104 93
07/23/24 02:53 07/23/24 06:00 07/23/24 06:00 07/23/24 06:00 07/23/24 06:00
I&O
07/21/24 07/22/24 07/23/24
06:59 06:59 06:59
Intake Total 340 / 340 530 / 530 100 / 100
Output Total 1900 / 1900 2875 / 2875 1020 / 1020
Balance -1560 / -1560 -2345 / -2345 -920 / -920
Review of Systems
-
History Source: Patient
Constitutional: Denies Fever or Chills
EENT: Denies Sore Throat or Runny Nose
Respiratory: Reports Cough and Trouble Breathing; Denies Wheezing or Pleurisy
Cardiac: Denies Chest Pain, Palpitations or Syncope
Abdomen/GI: Denies Abdominal Pain, Nausea, Vomiting or Bloody Stools
Breast: Reports N/A
Genitourinary: Denies Dysuria or Flank Pain
Musculoskeletal: Denies Joint Pain, Joint Swelling, Muscle Pain or Muscle Stiffness
Neuro: Denies Dizzy or Headache
Physical Exam
-
General: Well Developed, Well Nourished and No Apparent Distress
HEENT: Normocephalic, Atraumatic, Moist Mucous Membranes, Anicteric, [place] Conjunctivae, PERRLA, Nose Appears Normal, Ears Appear Normal and Oxygen (High Flow)
Respiratory: Rhonchi; Negative Wheezes or Rales
Cardiac: Regular Rhythm, S1/S2 and Tachycardic; Negative Murmur
GI: Soft, Nontender, Nondistended and Normal Bowel Sounds
Musculoskeletal: No Clubbing, No Cyanosis and No Edema
Skin: Warm, Dry and IV Access / Catheter Site
Neuro: AO x 3
[2024-07-23] MEDS: PROTONIX 40 MG PO (07:36)
[2024-07-23] MEDS: VISBIOME 2 CAP PO (07:36)
[2024-07-23] MEDS: LOPID 600 MG PO ×2 (07:36→20:26)
[2024-07-23] MEDS: FLOMAX 0.4 MG PO (07:36)
[2024-07-23] MEDS: NEURONTIN 300 MG PO ×3 (07:36→21:50)
[2024-07-23] MEDS: ELIQUIS 5 MG PO ×2 (07:36→20:26)
[2024-07-23] MEDS: PROGRAF 1.5 MG PO (07:37)
[2024-07-23] MEDS: CELLCEPT 750 MG PO ×2 (07:37→20:25)
[2024-07-23] MEDS: SOLU-CORTEF 25 MG IV ×2 (07:37→20:26)
[2024-07-23] MEDS: NOVOLOG FLEXPEN-MODERATE RESISTANCE SC (07:46)
[2024-07-23] MEDS: LASIX 20 MG IV (07:46)
[2024-07-23 07:56] LABS: Glucose - Point of Care 121 mg/dl (70-99)
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
[2024-07-23] MEDS: SYMBICORT 80/4.5 MCG INHALER 2 PUFF INH ×2 (08:28→20:01)
[2024-07-23] MEDS: SPIRIVA RESPIMAT 2.5 MCG 2 PUFF INH (08:28)
--- NOTE | 2024-07-23 10:27 | W.PN.ID1 ---
Date of Service
Date of Service: July 23, 2024
Today's Communication
- completed a 10 day course of zosynn
- medium term prognosis poor
Assessment / Plan
Acute hypoxemic resp failure - baseline O2 requirement 8L
Shock - resolved
Enteritis/ileus
Heart Transplantation 2001
Immunosuppression
Pulmonary HTN - end stage
Possible pneumonia
BHUMI on CKD - progressing
- back to home O2 requirements
- blood cultures x2 no growth to date
- sputum sample - zeinab albicans - usual resp bianca
- completed a 10 day course of zosynn
- medium term prognosis poor
Chief Complaint
-: Other (shock, enteritis; immunosuppression)
Subjective / Review of Systems
afebrile
down to midflow at 8L
in good spirits
no complaints
Vital Signs / Physical Exam
Vital Signs
Vital Signs
Temp Pulse Resp BP Pulse Ox
97.6 F 101 22 163/107 87
07/23/24 07:15 07/23/24 08:41 07/23/24 08:41 07/23/24 07:46 07/23/24 08:41
Physical Exam
Constitutional: No Acute Distress
Cardiovascular: Regular Rate and S1/S2; Negative Murmur or Rub
Pulmonary: Clear and Symmetric; Negative Wheezes or Rales
Gastrointestinal: Soft, Non Tender, Non Distended and Normal Bowel Sounds
Skin: Warm and Dry; Negative Rash or Jaundice
Objective Data
Lab Data
Lab Results
07/23/24 05:23
07/23/24 05:23
PT 18.7 Sec (11.4-14.6) H 07/16/24 13:38
INR 1.53 07/16/24 13:38
APTT Cancelled 07/15/24 17:30
Estimated Creat Clear 40 ml/min 07/23/24 05:23
Lactic Acid Cancelled 07/13/24 23:20
Total Bilirubin 0.8 mg/dl (0.2-1.3) 07/23/24 05:23
AST 21 U/L (17-59) 07/23/24 05:23
ALT 14 U/L (0-50) 07/23/24 05:23
Alkaline Phosphatase 87 U/L (38-126) 07/23/24 05:23
Most recent labs reviewed.
Micro Results:
07/13/24 10:04 Blood Culture - Final
Blood/Venous No Growth - Final Report
07/13/24 10:04 Blood Culture - Final
Blood/Venous No Growth - Final Report
07/15/24 15:37 Respiratory Culture - Final
Sputum Zeinab albicans
Gram Stain - Final
07/14/24 02:16 Urine Culture - Final
Urine No Significant Growth
[2024-07-23] MEDS: SODIUM CHLORIDE 3% FOR INHALATION 1 VIAL INH ×2 (10:56→20:00)
--- NOTE | 2024-07-23 11:54 | PTCARENOTE ---
Assumed care of pt from shift mechanic RN. AAOx3. NSR/ST on bus driver/monitor. HRs 80s-120s. Weaned to 8L midflow by RT. SpO2 87-95% on 8L midflow. Pt requiring NRB mask at times with ambulation to recover sats. Assessment documented. Pt resting in bed
with call moura in reach. Family at bedside.
[2024-07-23 12:05] LABS: Glucose - Point of Care 251 mg/dl (70-99)
[2024-07-23] MEDS: MYCOSTATIN ORAL SUSPENSION 5 ML PO ×3 (12:24→21:50)
[2024-07-23] MEDS: NOVOLOG FLEXPEN-MODERATE RESISTANCE 5 UNITS SC (12:25)
[2024-07-23 17:23] LABS: Glucose - Point of Care 222 mg/dl (70-99)
[2024-07-23] MEDS: NOVOLOG FLEXPEN-MODERATE RESISTANCE 3 UNITS SC (17:28)
[2024-07-23 21:43] LABS: Glucose - Point of Care 198 mg/dl (70-99)
[2024-07-23] MEDS: CRESTOR 20 MG PO (21:50)
[2024-07-23] MEDS: PROGRAF 1 MG PO (21:50)
[2024-07-24] VITALS (13 sets, daily range): BP systolic 98–148; BP diastolic 71–104; BMI 20.5
--- NOTE | 2024-07-24 04:24 | PTCARENOTE ---
Patient AAOx3. NS/ST on tele. HR 80-110s. Pt on 8L midflow SpO2 92%. Utilized the NRB for recovery after getting up to the BSC. Pt had 2 large soft BMs on the commode 1x assist. Pt desatted to 84% placed on NRB, quickly recovered to 90%. VSS.
Assessment documented. Pt utilizing the call moura appropriately, call moura is within reach.
[2024-07-24] MEDS: LOPRESSOR 5 MG IV ×4 (05:37→23:53)
[2024-07-24] MEDS: SYNTHROID 175 MCG PO (05:38)
[2024-07-24 06:13] LABS: % Basophils 0.1 % (0-2); % Eosinophils 0.6 % (0-6); % Immature Granulocytes 0.4 % (0-0.5); % Lymphocytes 28.1 % (20.5-51.1); % Monocytes 11.2 % (1.7-9.3); % Neutrophils 59.6 % (42.2-75.2); Absolute Eosinophils 0.1 10^3/uL (0-0.7); Absolute Lymphocytes 2.5 10^3/uL (1.2-3.4); Absolute Neutrophils 5.4 10^3/uL (1.4-6.5); Hematocrit 41.2 % (39.0-52.0); Mean Corp Hgb Conc. 31.6 g/dL (33.0-37.0); Mean Corpuscular Volume 88.6 fL (80.0-94.0); Nucleated Red Blood Cells % 0 % (-); Red Blood Cell Count 4.65 10^6/uL (4.70-6.10)
[2024-07-24 06:26] LABS: ALT (SGPT) 13 U/L (0-50); AST (SGOT) 18 U/L (17-59); Albumin 2.7 g/dl (3.5-5.0); Alkaline Phosphatase 80 U/L (38-126); Blood Urea Nitrogen 65 mg/dl (9-20); Calcium 7.1 mg/dl (8.4-10.2); Carbon Dioxide 32 mmol/L (22-30); Chloride 99 mmol/L (98-107); Estimated Creatinine Clearance 42 ml/min; Glucose 179 mg/dl (70-99); Sodium 140 mmol/L (135-145); Total Bilirubin 0.9 mg/dl (0.2-1.3); Total Protein 5.2 g/dl (6.3-8.2); eGFR > 60.00
[2024-07-24 08:05] LABS: Glucose - Point of Care 154 mg/dl (70-99)
[2024-07-24] MEDS: SODIUM CHLORIDE 3% FOR INHALATION 1 VIAL INH ×2 (08:16→20:36)
[2024-07-24] MEDS: SPIRIVA RESPIMAT 2.5 MCG 2 PUFF INH (08:16)
[2024-07-24] MEDS: SYMBICORT 80/4.5 MCG INHALER 2 PUFF INH ×2 (08:17→20:36)
[2024-07-24] MEDS: NOVOLOG FLEXPEN-MODERATE RESISTANCE 1 UNITS SC (08:26)
[2024-07-24] MEDS: FLOMAX 0.4 MG PO (08:28)
[2024-07-24] MEDS: VISBIOME 2 CAP PO (08:28)
[2024-07-24] MEDS: PROTONIX 40 MG PO (08:28)
[2024-07-24] MEDS: NEURONTIN 300 MG PO ×3 (08:28→22:00)
[2024-07-24] MEDS: ELIQUIS 5 MG PO ×2 (08:28→20:25)
[2024-07-24] MEDS: LOPID 600 MG PO ×2 (08:28→20:25)
[2024-07-24] MEDS: MYCOSTATIN ORAL SUSPENSION 5 ML PO ×4 (08:28→22:00)
[2024-07-24] MEDS: PROGRAF 1.5 MG PO (08:29)
[2024-07-24] MEDS: CELLCEPT 750 MG PO ×2 (08:29→20:25)
[2024-07-24] MEDS: SOLU-CORTEF 25 MG IV (08:29)
--- NOTE | 2024-07-24 08:35 | W.PN.HOSP.TC ---
Today's Communication/Plan
-
Replete K
Continue with nebulizers and airway clearance mechanism
Continue with PT OT
DC planning
Assessment / Plan
Assessment / Plan
83 year old male
ACUTELY MANAGING
#Acute Hypoxic on chronic respiratory Failure - currently on mid flow 8L adequate saturations.
Possible pneumonia
Possible acute diastolic heart failure
Afebrile and normal white count and nontoxic. Finished antibiotic course
Weight has come down to 138 pounds which is his lowest. IV Lasix being used as needed for weight gain now.
Continue with nebulizer treatments and airway clearance mechanisms.
- Pulm following.
#Hypokalemia - 3.0 this AM. Replete
#BHUMI on CKD Stage IIIa - Pre-renal (patient required pressors) vs. contrast induced
- Nurse Wound Care bump to 2.3 on admission, now down to baseline, around 1.4-1.5.
- Victoria out, voiding without issue.
#HFpEF - will leave Lasix as 20mg IV prn if weight increases by more than 3lbs, otherwise caution for volume depletion.
#Sinus Tachycardia
- c/w rate control Lopressor 5mg IV q6 w/ q4 prn. May consider transitioning to PO dosing in anticipation for discharge as his respiratory status hopefully improves.
#Septic Shock, secondary to infection, intra-abdominal vs. urinary vs. respiratory
[Hypotensive requiring pressure support w/ levophed, tachycardic, tachypneic, leukocytosis, lactic acidosis w/ probably source of infection]
- s/p 1L IVF, likely less than sepsis dosing due to history of heart transplant. CXR showing sm bl pleural effusions.
- COVID negative. Blood Cultures NGx48 hours, UA +, urine culture negative.
- Received one dose of IV Cefepime/Flagyl in ED. Finished 10d Zosyn.
- Off pressors. Stopping midodrine.
- ID following.
#Enteritis/Ileus
#Cecal Colitis
- CT findings suggestive of Enteritis/Ileus w/ Cecal Colitis, no appendicitis. No evidence for bowel ischemia.
- GI consulted, no plans for endoscopy/colonoscopy given current clinical condition. If develops diarrhea can consider stool studies.
- Abd XR showing gaseous distention in the small bowel in the LUQ. CT on 07/13 showed calcified stones in gallbladder.
-Tolerating low residue/low lactose diet
- Appreciate GI recs.
#Hypoglycemia
#IDDM
-His home dose of insulin has been modified. Currently on 12U long acting QHS, rather than BID. MDISS.
Hemoglobin A1c 7.3
#History of PE - Off heparin ggt, platelet drop. C/w Eliquis.
ACUTE RESOLVED
#Diarrhea (resolved) - 3 BMs/d, loose, NB. Likely from IV Abx. C/w probiotic
#Constipation (resolved) - Had bowel movements. C/w Miralax/Ducolax prn.
CHRONIC
#H/o Heart Failure, s/p Heart transplant 2001 (on chronic immunosuppression)
- There was a discrepancy in dosing; cleared up misunderstanding with the patient who takes 'THREE and TWO' of the 0.5mg tablets, equalling his home doses of 1.5mg and 1mg, respectively.
- c/w tacrolimus & cellcept.
#Pulmonary Hypertension - recent echo 07/13/24 showing PASP 75-80 mmHg. Likely contributing to his chronic hypoxia.
#AAA s/p EVAR w/ endoleak - CT 07/13/24 showing stable endoleak, patent SMA and celiac a. Evaluated by vascular, felt to be stable and noncontributory to presentation.
#COPD - on chronic O2 supplementation at home 8L NC.
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
#Essential Hypertension - holding po metoprolol and enalapril (due to BHUMI). cardiology/nephro following.
#Hypercholesterolemia - c/w gemfibrozil
Diet - Low Residue/Low Lactose
DVT Ppx - Eliquis.
Code Status - DNR
Anticipated Discharge: 24 - 48 hours
Subjective/Interval History
-
Date of Service: July 24, 2024
In general feeling improved. Remains on 8 L of oxygen which is his baseline. Intermittently with exertion he needs partial nonrebreather mask.
Appetite okay. No nausea vomiting diarrhea.
Denies any chest pain.
No fevers.
Objective Data
-
Labs:
Laboratory Results
07/24/24
05:39
WBC 9.0
Hgb 13.0
Hct 41.2
Plt Count Pending
Sodium 140
Potassium 3.0 L
Chloride 99
Carbon Dioxide 32 H
BUN 65 H
Creatinine 1.2
Glucose 179 H
Calcium 7.1 L
Total Bilirubin 0.9
AST 18
ALT 13
Alkaline Phosphatase 80
Vital Signs:
Vital Signs
Temp Pulse Resp BP Pulse Ox
97.9 F 106 22 139/103 87
07/24/24 07:13 07/24/24 08:21 07/24/24 08:21 07/24/24 06:00 07/24/24 08:21
I&O
07/23/24 07/24/24 07/25/24
06:59 06:59 06:59
Intake Total 100 / 100 480 / 480
Output Total 1020 / 1020 600 / 600
Balance -920 / -920 -120 / -120
Review of Systems
-
EENT: Denies Sore Throat
Respiratory: Reports Cough
Abdomen/GI: Denies Abdominal Pain
Neuro: Denies Dizzy
Physical Exam
-
General: No Apparent Distress
Respiratory: Non Labored Respirations and Decreased Breath Sounds (Moving air better); Negative Wheezes, Crackles or Accessory Resp Muscle Use
Cardiac: Regular Rhythm, S1/S2 and Tachycardic
GI: Soft and Nontender
Musculoskeletal: Other (Improved bilateral foot edema)
Neuro: AO x 3
Psych: Calm
Data Reviewed
-
Labs: Labs Reviewed by me
[2024-07-24] MEDS: KCL 40 MEQ PO ×2 (08:49→12:51)
[2024-07-24 08:58] LABS: Platelet Count 88 10^3/uL (130-400)
[2024-07-24] MEDS: NOVOLOG FLEXPEN-MODERATE RESISTANCE 3 UNITS SC ×2 (12:49→16:38)
[2024-07-24 13:00] LABS: Glucose - Point of Care 249 mg/dl (70-99)
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
--- NOTE | 2024-07-24 14:06 | PTCARENOTE ---
Patient is out of bed to chair, denying pain when asked. Pulse ox 92% at time on 8 liters midflow. Good appetite today, continent of bowel and bladder. Compliant with plan of care. Family at bedside.
[2024-07-24 16:38] LABS: Glucose - Point of Care 209 mg/dl (70-99)
[2024-07-24 21:57] LABS: Glucose - Point of Care 228 mg/dl (70-99)
[2024-07-24] MEDS: PROGRAF 1 MG PO (22:00)
[2024-07-24] MEDS: CRESTOR 20 MG PO (22:00)
[2024-07-25] VITALS (14 sets, daily range): BP systolic 106–150; BP diastolic 75–117; BMI 20.4
[2024-07-25] MEDS: LOPRESSOR 5 MG IV ×4 (05:47→23:47)
[2024-07-25] MEDS: SYNTHROID 175 MCG PO (05:47)
[2024-07-25 06:27] LABS: Blood Urea Nitrogen 63 mg/dl (9-20); Calcium 7.3 mg/dl (8.4-10.2); Carbon Dioxide 33 mmol/L (22-30); Chloride 105 mmol/L (98-107); Estimated Creatinine Clearance 46 ml/min; Glucose 175 mg/dl (70-99); Potassium 3.8 mmol/L (3.5-5.1); Sodium 141 mmol/L (135-145); eGFR > 60.00
[2024-07-25] MEDS: SPIRIVA RESPIMAT 2.5 MCG 2 PUFF INH (07:28)
[2024-07-25] MEDS: SODIUM CHLORIDE 3% FOR INHALATION 1 VIAL INH ×2 (07:28→20:38)
[2024-07-25] MEDS: SYMBICORT 80/4.5 MCG INHALER 2 PUFF INH ×2 (07:29→20:39)
[2024-07-25 07:43] LABS: Glucose - Point of Care 153 mg/dl (70-99)
[2024-07-25] MEDS: VISBIOME 2 CAP PO (08:25)
[2024-07-25] MEDS: PROGRAF 1.5 MG PO (08:26)
[2024-07-25] MEDS: NEURONTIN 300 MG PO ×3 (08:26→22:07)
[2024-07-25] MEDS: ELIQUIS 5 MG PO ×2 (08:26→19:37)
[2024-07-25] MEDS: MYCOSTATIN ORAL SUSPENSION 5 ML PO ×4 (08:26→22:07)
[2024-07-25] MEDS: CELLCEPT 750 MG PO ×2 (08:26→19:37)
[2024-07-25] MEDS: PROTONIX 40 MG PO (08:27)
[2024-07-25] MEDS: FLOMAX 0.4 MG PO (08:27)
[2024-07-25] MEDS: LOPID 600 MG PO ×2 (08:27→19:37)
[2024-07-25] MEDS: NOVOLOG FLEXPEN-MODERATE RESISTANCE 1 UNITS SC ×2 (08:31→17:42)
--- NOTE | 2024-07-25 09:18 | W.PN.HOSP.TC ---
Today's Communication/Plan
-
Slow improvement in respiratory status and back to 8L of O2 which is his baseline.
Still needing NRB with exertional activities. If comes off of it will start DC plan.
Needs rehab when stable . Pt agreeable for rehab.
Assessment / Plan
Assessment / Plan
83 year old male
ACUTELY MANAGING
#Acute Hypoxic on chronic respiratory Failure - currently on mid flow 8L adequate saturations.
Possible pneumonia
Possible acute diastolic heart failure
Afebrile and normal white count and nontoxic. Finished antibiotic course
Weight has come down to 138 pounds which is his lowest. IV Lasix being used as needed for weight gain now.
Continue with nebulizer treatments and airway clearance mechanisms.
- Pulm following.
#BHUMI on CKD Stage IIIa - Pre-renal (patient required pressors) vs. contrast induced
- Waiter/Waitress Economy Class bump to 2.3 on admission, now down to baseline, around 1.4-1.5.
- Victoria out, voiding without issue.
- Improved Cr
#HFpEF - will leave Lasix as 20mg IV prn if weight increases by more than 3lbs, otherwise caution for volume depletion.
#Sinus Tachycardia
- c/w rate control Lopressor 5mg IV q6 w/ q4 prn. May consider transitioning to PO dosing in anticipation for discharge as his respiratory status hopefully improves.
#Septic Shock, secondary to infection, intra-abdominal vs. urinary vs. respiratory
[Hypotensive requiring pressure support w/ levophed, tachycardic, tachypneic, leukocytosis, lactic acidosis w/ probably source of infection]
- s/p 1L IVF, likely less than sepsis dosing due to history of heart transplant. CXR showing sm bl pleural effusions.
- COVID negative. Blood Cultures NGx48 hours, UA +, urine culture negative.
- Received one dose of IV Cefepime/Flagyl in ED. Finished 10d Zosyn.
- Off pressors. Stopping midodrine.
- ID following.
#Enteritis/Ileus
#Cecal Colitis
- CT findings suggestive of Enteritis/Ileus w/ Cecal Colitis, no appendicitis. No evidence for bowel ischemia.
- GI consulted, no plans for endoscopy/colonoscopy given current clinical condition. If develops diarrhea can consider stool studies.
- Abd XR showing gaseous distention in the small bowel in the LUQ. CT on 07/13 showed calcified stones in gallbladder.
-Tolerating low residue/low lactose diet
- Appreciate GI recs.
#Hypoglycemia
#IDDM
-His home dose of insulin has been modified. Currently on 12U long acting QHS, rather than BID. MDISS.
Hemoglobin A1c 7.3
#History of PE - Off heparin ggt, platelet drop. C/w Eliquis.
ACUTE RESOLVED
#Diarrhea (resolved) - 3 BMs/d, loose, NB. Likely from IV Abx. C/w probiotic
#Constipation (resolved) - Had bowel movements. C/w Miralax/Ducolax prn.
CHRONIC
#H/o Heart Failure, s/p Heart transplant 2001 (on chronic immunosuppression)
- There was a discrepancy in dosing; cleared up misunderstanding with the patient who takes 'THREE and TWO' of the 0.5mg tablets, equalling his home doses of 1.5mg and 1mg, respectively.
- c/w tacrolimus & cellcept.
#Pulmonary Hypertension - recent echo 07/13/24 showing PASP 75-80 mmHg. Likely contributing to his chronic hypoxia.
#AAA s/p EVAR w/ endoleak - CT 07/13/24 showing stable endoleak, patent SMA and celiac a. Evaluated by vascular, felt to be stable and noncontributory to presentation.
#COPD - on chronic O2 supplementation at home 8L NC.
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
#Essential Hypertension - holding po metoprolol and enalapril (due to BHUMI). cardiology/nephro following.
#Hypercholesterolemia - c/w gemfibrozil
Diet - Low Residue/Low Lactose
DVT Ppx - Eliquis.
Code Status - DNR
Anticipated Discharge: Within 24 hours
Subjective/Interval History
-
Date of Service: July 25, 2024
No events overnight.
Patient with slowly improved. Still on 8 L of oxygen. Intermittently requires nonrebreather with exertional activities.
No chest pain.
Objective Data
-
Labs:
Laboratory Results
07/25/24
05:42
Sodium 141
Potassium 3.8 D
Chloride 105
Carbon Dioxide 33 H
BUN 63 H
Creatinine 1.1
Glucose 175 H
Calcium 7.3 L
Vital Signs:
Vital Signs
Temp Pulse Resp BP Pulse Ox
98.2 F 104 20 150/100 87
07/25/24 07:20 07/25/24 07:33 07/25/24 07:33 07/25/24 06:00 07/25/24 07:33
I&O
07/24/24 07/25/24 07/26/24
06:59 06:59 06:59
Intake Total 480 / 480
Output Total 600 / 600 175 / 175
Balance -120 / -120 -175 / -175
Review of Systems
-
Constitutional: Denies Fever
Respiratory: Reports Cough (improving)
Abdomen/GI: Denies Abdominal Pain, Nausea or Vomiting
Neuro: Denies Dizzy
Physical Exam
-
General: No Apparent Distress
Respiratory: Non Labored Respirations, Accessory Resp Muscle Use and Decreased Breath Sounds (improved air movement); Negative Wheezes
Cardiac: Regular Rhythm, S1/S2 and Tachycardic
GI: Soft
Neuro: AO x 3
Data Reviewed
-
Labs: Labs Reviewed by me
[2024-07-25 12:48] LABS: Glucose - Point of Care 217 mg/dl (70-99)
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
[2024-07-25] MEDS: NOVOLOG FLEXPEN-MODERATE RESISTANCE 3 UNITS SC (13:48)
[2024-07-25 17:51] LABS: Glucose - Point of Care 185 mg/dl (70-99)
[2024-07-25 21:33] LABS: Glucose - Point of Care 316 mg/dl (70-99)
[2024-07-25] MEDS: NOVOLOG FLEXPEN 5 UNITS SC (22:06)
[2024-07-25] MEDS: CRESTOR 20 MG PO (22:06)
[2024-07-25] MEDS: PROGRAF 1 MG PO (22:06)
[2024-07-25] MEDS: LANTUS 0.1 UNITS SC (22:16)
[2024-07-26] VITALS (14 sets, daily range): BP systolic 105–152; BP diastolic 71–128; PULSE 120; O2SAT 88; BMI 20.4
--- NOTE | 2024-07-26 04:10 | PTCARENOTE ---
Patient AAOx3. NS/ST on tele. HR 80-110s. 8L midflow SpO2 91%. Pt utilizing NRB for recovery after exertion. Pt does desat with exertion. Pt having very frequent soft stools on the commode, denies any abdominal discomfort. Pt rings the call moura
appropriately, very complaint with care. Call moura is within reach.
[2024-07-26] MEDS: LOPRESSOR 5 MG IV ×4 (05:47→23:17)
[2024-07-26] MEDS: SYNTHROID 175 MCG PO (05:47)
[2024-07-26 06:06] LABS: Hematocrit 42.1 % (39.0-52.0); Hemoglobin 13.3 g/dL (13.0-18.0); Mean Corp Hgb Conc. 31.6 g/dL (33.0-37.0); Mean Corpuscular Hgb 28.5 pg (27.0-31.0); Mean Corpuscular Volume 90.1 fL (80.0-94.0); Platelet Count 60 10^3/uL (130-400); Red Blood Cell Count 4.67 10^6/uL (4.70-6.10); White Blood Cell Count 9.2 10^3/uL (4.8-10.8)
[2024-07-26 06:47] LABS: Blood Urea Nitrogen 51 mg/dl (9-20); Calcium 7.3 mg/dl (8.4-10.2); Carbon Dioxide 36 mmol/L (22-30); Chloride 105 mmol/L (98-107); Estimated Creatinine Clearance 46 ml/min; Glucose 115 mg/dl (70-99); Potassium 4.1 mmol/L (3.5-5.1); Sodium 143 mmol/L (135-145); eGFR > 60.00
[2024-07-26 07:38] LABS: Glucose - Point of Care 108 mg/dl (70-99)
[2024-07-26] MEDS: SODIUM CHLORIDE 3% FOR INHALATION 1 VIAL INH ×2 (07:49→19:34)
[2024-07-26] MEDS: SPIRIVA RESPIMAT 2.5 MCG 2 PUFF INH (07:49)
[2024-07-26] MEDS: SYMBICORT 80/4.5 MCG INHALER 2 PUFF INH ×2 (07:50→19:34)
[2024-07-26] MEDS: NOVOLOG FLEXPEN-MODERATE RESISTANCE SC (08:04)
[2024-07-26] MEDS: MYCOSTATIN ORAL SUSPENSION 5 ML PO ×4 (08:04→21:39)
[2024-07-26] MEDS: CELLCEPT 750 MG PO ×2 (08:05→19:33)
[2024-07-26] MEDS: VISBIOME 2 CAP PO (08:05)
[2024-07-26] MEDS: LOPID 600 MG PO ×2 (08:05→19:34)
[2024-07-26] MEDS: PROGRAF 1.5 MG PO (08:05)
[2024-07-26] MEDS: PROTONIX 40 MG PO (08:06)
[2024-07-26] MEDS: NEURONTIN 300 MG PO ×3 (08:06→21:40)
[2024-07-26] MEDS: ELIQUIS 5 MG PO ×2 (08:06→19:34)
[2024-07-26] MEDS: FLOMAX 0.4 MG PO (08:06)
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
--- NOTE | 2024-07-26 11:34 | W.PN.ID1 ---
Date of Service
Date of Service: July 26, 2024
Today's Communication
Observe off antibiotics.
Assessment / Plan
Acute hypoxemic resp failure - baseline O2 requirement 8L
Shock - resolved
Enteritis/ileus
Hx Heart Transplantation (2001)
Immunosuppression
Pulmonary HTN - end stage
Possible pneumonia
BHUMI on CKD - progressing
- back to baseline O2 requirements
- blood cultures x2 no growth to date
- sputum sample - zeinab albicans - usual resp bianca
- completed a 10 day course of zosyn
- Observe off antibiotics.
Chief Complaint
-: Other (shock, enteritis; immunosuppression)
Subjective / Review of Systems
Patient seen and examined. Reports breathing feels comfortable. No fevers or chills.
Review of Systems: No Fever and No Chills
Vital Signs / Physical Exam
Vital Signs
Vital Signs
Temp Pulse Resp BP Pulse Ox
97.8 F 110 22 130/97 95
07/26/24 11:29 07/26/24 08:01 07/26/24 08:01 07/26/24 06:13 07/26/24 08:01
Physical Exam
Constitutional: No Acute Distress, Comfortable and Non-toxic
Cardiovascular: Regular Rate and S1/S2
Pulmonary: Symmetric, Coarse and Non Labored; Negative Wheezes or Rales
Gastrointestinal: Soft, Non Tender, Non Distended and Normal Bowel Sounds
Skin: Warm and Dry; Negative Rash or Jaundice
Objective Data
Lab Data
Lab Results
07/26/24 05:48
07/26/24 05:48
PT 18.7 Sec (11.4-14.6) H 07/16/24 13:38
INR 1.53 07/16/24 13:38
APTT Cancelled 07/15/24 17:30
Estimated Creat Clear 46 ml/min 07/26/24 05:48
Lactic Acid Cancelled 07/13/24 23:20
Total Bilirubin 0.9 mg/dl (0.2-1.3) 07/24/24 05:39
AST 18 U/L (17-59) 07/24/24 05:39
ALT 13 U/L (0-50) 07/24/24 05:39
Alkaline Phosphatase 80 U/L (38-126) 07/24/24 05:39
Most recent labs reviewed.
Micro Results:
07/13/24 10:04 Blood Culture - Final
Blood/Venous No Growth - Final Report
07/13/24 10:04 Blood Culture - Final
Blood/Venous No Growth - Final Report
07/15/24 15:37 Respiratory Culture - Final
Sputum Zeinab albicans
Gram Stain - Final
07/14/24 02:16 Urine Culture - Final
Urine No Significant Growth
[2024-07-26 12:13] LABS: Glucose - Point of Care 238 mg/dl (70-99)
[2024-07-26] MEDS: NOVOLOG FLEXPEN-MODERATE RESISTANCE 3 UNITS SC ×2 (13:08→17:38)
--- NOTE | 2024-07-26 16:34 | HOSPNOTE ---
Patient will be going home with VN and palliative care. I spoke with patient and family and when the patient needs hospice care he will reach out to Palliative and they will send us a referral. Patient had a question about anti rejection medications
he uses for his heart transplant if he could remain on them while on hospice. I told patient we would verify prior to him signing onto hospice services which medications are covered. CM updated.
[2024-07-26 16:46] LABS: Glucose - Point of Care 201 mg/dl (70-99)
--- NOTE | 2024-07-26 17:36 | W.PN.HOSP.TC ---
Addendum entered and electronically signed by Loreta Guillaume MD 07/26/24 21:03:
I saw and evaluated the patient independently. I reviewed the resident�s note and agree with findings and plan as documented by Dr. Gilliam.
GENERAL: well developed, well nourished, male using NRB mask
HEENT: NC/AT--8L O2 with need for PRN NRB mask
HEART: regular rate and rhythm, +S1, +S2
LUNGS : clear to auscultation bilaterally
ABDOM: soft, nontender, nondistended, + bowel sounds
EXT: no cyanosis, clubbing, or edema
NEUROLOGIC: grossly intact
Acute on chronic hypoxic respiratory failure from Acute diastolic heart failure versus pneumonia (has ILD, pulm HTN, lung cancer, and COPD)--was on HI BHARATHI--now back to 8 L but need NRB mask for rescue with exertion--apprec pulm--IV lasix as
needed--hospice appropriate
Septic shock secondary to infection--came with enteritis/colitis and pna--Blood cultures negative, urine cultures negative, sputum culture positive Zeinab albicans (oral bianca)-Status post completed 10 days course of Zosyn-Blood pressure stable,
off pressors and midodrine
BHUMI on CKD stage IIIa-Secondary to suboptimal perfusion given hyperal tension requiring pressure support--Creatinine 2.3 on admission, back to baseline
HFpEF-Back to baseline weight. Lasix as needed
Sinus Tachycardia- c/w rate control Lopressor 5mg IV q6 w/ q4 prn.
Enteritis/Ileus, Cecal Colitis (RESOLVED)- CT findings suggestive of Enteritis/Ileus w/ Cecal Colitis, no appendicitis. No evidence for bowel ischemia- GI consulted, no plans for endoscopy/colonoscopy given current clinical condition-Denies
abdominal pain today, with frequent bowel movements likely from antibiotics. Tolerating regular diet.
Hypoglycemia/IDDM--insulin dose reduced---Hemoglobin A1c 7.3
History of PE--Off heparin ggt, platelet drop. C/w Eliquis.
H/o Heart Failure, s/p Heart transplant 2001 (on chronic immunosuppression)- c/w tacrolimus & cellcept.
Interstitial lung disease, pulmonary Hypertension, COPD- recent echo 07/13/24 showing PASP 75-80 mmHg. Likely contributing to his chronic hypoxia- On home 8 L nasal cannula
AAA
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
Essential Hypertension -continue metoprolol IV, will transition to p.o. for discharge planning
Hypercholesterolemia - c/w gemfibrozil
DVT Proph - Eliquis.
Code Status - DNR
pt is hospice appropriate but does not wish to discuss--his plan is to go home and if he needs to come back (which he will) he will come back to the hospital--he only has O2 to 10L at home--NRB mask unable to be obtained in home use--plan was for
SNF BUT no one will take him on that amt of O2 OR NRB mask--he is unreasonable and does NOT understand the severity of his illness
Original Note:
Today's Communication/Plan
-
- Back to 8 L home O2 nasal cannula requirement, with increased O2 requirements with exertion.
-Patient likely discharge to home with visiting nurse per patient preference, on palliative care.
-Discharge planning
Assessment / Plan
Assessment / Plan
83 year old male who presents with acute on chronic hypoxemic respiratory failure, altered mental status, enteritis
Acute on chronic hypoxic respiratory failure
-Acute diastolic heart failure versus pneumonia
-Baseline O2 requirement 8 L nasal cannula at home
-Currently back to baseline 8 L nasal cannula, requiring 15 L nonrebreather with exertion
-Down to baseline weight, IV Lasix as needed.
-Appreciate pulm recs
Septic shock secondary to infection:
Meets SIRS -hypotensive requiring pressure support with Levophed, tachycardic, tachypneic, leukocytosis, lactic acidosis
Pneumonia versus enteritis/colitis
� Blood cultures negative, urine cultures negative, sputum culture positive Zeinab albicans (oral bianca)
-Status post completed 10 days course of Zosyn
-Blood pressure stable, off pressors and midodrine
BHUMI on CKD stage IIIa:
-Secondary to suboptimal perfusion given hyperal tension requiring pressure support
-Creatinine 2.3 on admission, back to baseline
HFpEF:
-Back to baseline weight. Lasix as needed
Sinus Tachycardia
- c/w rate control Lopressor 5mg IV q6 w/ q4 prn.
Enteritis/Ileus, Cecal Colitis
- CT findings suggestive of Enteritis/Ileus w/ Cecal Colitis, no appendicitis. No evidence for bowel ischemia.
- GI consulted, no plans for endoscopy/colonoscopy given current clinical condition.
-Denies abdominal pain today, with frequent bowel movements likely from antibiotics. Tolerating regular diet.
-appreciate GI recs.
Hypoglycemia
IDDM
-His home dose of insulin has been modified. Currently on 12U long acting QHS, rather than BID. MDISS.
Hemoglobin A1c 7.3
History of PE -
Off heparin ggt, platelet drop. C/w Eliquis.
H/o Heart Failure, s/p Heart transplant 2001 (on chronic immunosuppression)
- c/w tacrolimus & cellcept.
Interstitial lung disease, pulmonary Hypertension, COPD
- recent echo 07/13/24 showing PASP 75-80 mmHg. Likely contributing to his chronic hypoxia.
- On home 8 L nasal cannula
AAA
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
#Essential Hypertension -continue metoprolol IV, will transition to p.o. for discharge planning
#Hypercholesterolemia - c/w gemfibrozil
Diet - Low Residue/Low Lactose
DVT Ppx - Eliquis.
Code Status - DNR
Anticipated Discharge: Within 24 hours
Subjective/Interval History
-
Date of Service: July 26, 2024
Pt feels well today. No acute overnight events
Objective Data
-
Labs:
Laboratory Results
07/26/24
05:48
WBC 9.2
Hgb 13.3
Hct 42.1
Plt Count 60 L D
Sodium 143
Potassium 4.1
Chloride 105
Carbon Dioxide 36 H
BUN 51 H
Creatinine 1.1
Glucose 115 H
Calcium 7.3 L
Vital Signs:
Vital Signs
Temp Pulse Resp BP Pulse Ox
97.4 F 122 19 150/109 92
07/26/24 14:56 07/26/24 12:00 07/26/24 12:00 07/26/24 12:00 07/26/24 12:38
I&O
07/25/24 07/26/24 07/27/24
06:59 06:59 06:59
Intake Total 720 / 720
Output Total 175 / 175 325 / 325
Balance -175 / -175 720 / 720 -325 / -325
Review of Systems
-
History Source: Patient
Constitutional: Denies No Appetite
Respiratory: Reports Trouble Breathing (with exertion)
Cardiac: Denies Chest Pain or Palpitations
Abdomen/GI: Reports Diarrhea; Denies Abdominal Pain, Nausea, Vomiting, Bloody Stools, Black Stools or Anorexia
Physical Exam
-
General: Comfortable
HEENT: Normocephalic, Atraumatic, Moist Mucous Membranes and Anicteric
Respiratory: Rhonchi (Diffuse) and Non Labored Respirations
Cardiac: Regular Rhythm and S1/S2; Negative Murmur
GI: Soft, Nontender, Nondistended and Normal Bowel Sounds
Musculoskeletal: Edema, Right Lower Extrem and Edema, Left Lower Extrem
Skin: Warm and Dry
Neuro: Awake, Alert and Oriented
Psych: Calm
--- NOTE | 2024-07-26 17:38 | CM ---
Patient seen at bedside and discussed with patient family options. Patient wants to go home with palliative care at this point but has questions about hospice. Family discussed options. plan tentatively per patient is home with palliative care and
VN. Patient has 10 liter concentrator at home, normally on 8 liters. CM will continue to follow for discharge planning needs.
Plan; home with VN/palliative care.
--- NOTE | 2024-07-26 19:23 | PTCARENOTE ---
day shift note. see nursing assessment. pt oob in chair most of day sats above 88 on 8 liters except for occasional desat with increased activity. pt using nonrebreather with o2 prn for recovery from desat.
[2024-07-26] MEDS: LANTUS 0.1 UNITS SC (21:39)
[2024-07-26] MEDS: PROGRAF 1 MG PO (21:40)
[2024-07-26] MEDS: CRESTOR 20 MG PO (21:40)
[2024-07-26 21:52] LABS: Glucose - Point of Care 216 mg/dl (70-99)
[2024-07-27] VITALS (12 sets, daily range): BP systolic 100–151; BP diastolic 66–114; BMI 20.4
[2024-07-27] MEDS: LOPRESSOR 5 MG IV ×2 (05:15→12:19)
[2024-07-27] MEDS: SYNTHROID 175 MCG PO (05:15)
[2024-07-27 05:54] LABS: Hemoglobin 13.8 g/dL (13.0-18.0); Mean Corp Hgb Conc. 31.4 g/dL (33.0-37.0); Mean Corpuscular Hgb 28.4 pg (27.0-31.0); Mean Corpuscular Volume 90.5 fL (80.0-94.0); Platelet Count 57 10^3/uL (130-400); Red Blood Cell Count 4.86 10^6/uL (4.70-6.10); White Blood Cell Count 10.2 10^3/uL (4.8-10.8)
[2024-07-27] MEDS: SODIUM CHLORIDE 3% FOR INHALATION 1 VIAL INH (07:37)
[2024-07-27] MEDS: SPIRIVA RESPIMAT 2.5 MCG 2 PUFF INH (07:37)
[2024-07-27] MEDS: SYMBICORT 80/4.5 MCG INHALER 2 PUFF INH (07:38)
[2024-07-27] MEDS: NOVOLOG FLEXPEN-MODERATE RESISTANCE SC (08:15)
[2024-07-27] MEDS: VISBIOME 2 CAP PO (08:15)
[2024-07-27] MEDS: LOPID 600 MG PO (08:16)
[2024-07-27] MEDS: ELIQUIS 5 MG PO (08:16)
[2024-07-27] MEDS: PROTONIX 40 MG PO (08:16)
[2024-07-27] MEDS: NEURONTIN 300 MG PO (08:16)
[2024-07-27] MEDS: MYCOSTATIN ORAL SUSPENSION 5 ML PO (08:16)
[2024-07-27 08:17] LABS: Glucose - Point of Care 110 mg/dl (70-99)
[2024-07-27] MEDS: FLOMAX 0.4 MG PO (08:17)
[2024-07-27] MEDS: PROGRAF 1.5 MG PO (08:17)
[2024-07-27] MEDS: CELLCEPT 750 MG PO (08:18)
[2024-07-27] MEDS: LASIX 20 MG IV (08:19)
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
--- NOTE | 2024-07-27 11:17 | W.PN.ID1 ---
Date of Service
Date of Service: July 27, 2024
Today's Communication
- remains well off of antibiotics
ID service will no longer actively follow this patient please recall for further questions
Assessment / Plan
Acute hypoxemic resp failure - baseline O2 requirement 8L
Shock - resolved
Enteritis/ileus
Hx Heart Transplantation (2001)
Immunosuppression
Pulmonary HTN - end stage
Possible pneumonia
BHUMI on CKD - progressing
- back to baseline O2 requirements
- remains well off of antibiotics
ID service will no longer actively follow this patient please recall for further questions
Chief Complaint
-: Other (shock, enteritis; immunosuppression)
Subjective / Review of Systems
afebrile
bp stable
no complaints
Vital Signs / Physical Exam
Vital Signs
Vital Signs
Temp Pulse Resp BP Pulse Ox
97.6 F 123 23 101/73 93
07/27/24 07:27 07/27/24 10:01 07/27/24 10:01 07/27/24 10:01 07/27/24 10:01
Physical Exam
Constitutional: No Acute Distress and Chronically Ill
Cardiovascular: Regular Rate and S1/S2; Negative Murmur or Rub
Pulmonary: Clear and Symmetric; Negative Wheezes or Rales
Gastrointestinal: Soft, Non Tender, Non Distended and Normal Bowel Sounds
Skin: Warm and Dry; Negative Rash or Jaundice
Objective Data
Lab Data
Lab Results
07/27/24 05:14
07/26/24 05:48
PT 18.7 Sec (11.4-14.6) H 07/16/24 13:38
INR 1.53 07/16/24 13:38
APTT Cancelled 07/15/24 17:30
Estimated Creat Clear 46 ml/min 07/26/24 05:48
Lactic Acid Cancelled 07/13/24 23:20
Total Bilirubin 0.9 mg/dl (0.2-1.3) 07/24/24 05:39
AST 18 U/L (17-59) 07/24/24 05:39
ALT 13 U/L (0-50) 07/24/24 05:39
Alkaline Phosphatase 80 U/L (38-126) 07/24/24 05:39
Most recent labs reviewed.
Micro Results:
07/13/24 10:04 Blood Culture - Final
Blood/Venous No Growth - Final Report
07/13/24 10:04 Blood Culture - Final
Blood/Venous No Growth - Final Report
07/15/24 15:37 Respiratory Culture - Final
Sputum Zeinab albicans
Gram Stain - Final
07/14/24 02:16 Urine Culture - Final
Urine No Significant Growth
[2024-07-27] MEDS: MYCOSTATIN ORAL SUSPENSION PO (11:47)
[2024-07-27] MEDS: NOVOLOG FLEXPEN-MODERATE RESISTANCE 3 UNITS SC (11:55)
[2024-07-27] MEDS: LOPRESSOR IV (11:55)
[2024-07-27 12:04] LABS: Glucose - Point of Care 215 mg/dl (70-99)
--- NOTE | 2024-07-27 12:05 | PTCARENOTE ---
Patient was surprised this morning as nurse was looking for the patients DNR bracelet on his right arm. Patient was unaware that he was a DNR and asked to speak to the doctor. Patient made a Full Code and after plan of care discussion patient signed
out AMA. Patient is for pickup this afternoon (by ambulance) and he gave permission for nurse to continue care until discharge. Patients blood pressure 100/68, discussed with Dr. Guillaume. Permission to administer Lopressor 5mg IV obtained.
--- NOTE | 2024-07-27 13:27 | CM ---
Patient notified nursing that he wanted to sign AMA and made himself full code following discussion this am. Patient spoke with physician and CM and plan is for discharge home today with [facility] to follow for supports patient has home O2 10 liter
concentrator. Patient ambulance set up for transfer home. Patient spoke with CM about concerns regarding palliative care and CM tt Dr. Alejo to reassure her. Patient plan for discharge home with patient stating that I understand I just want to
go home. CM will continue to follow for discharge planning needs.
Plan; home with [facility] to follow
--- NOTE | 2024-07-27 13:29 | VNURNOTE ---
Home Health Liaison met with patient and spouse at bedside to discuss [facility] nurse/therapy, visits, schedule and homebound status. Both are agreeable and understand that visits at home will be 2-3 x per week to assess and teach medical management.
Both are aware that [facility] will contact them for start of care in 1-2 days after discharge from .
[facility] referral completed in [facility].
--- NOTE | 2024-07-27 13:39 | PTCARENOTE ---
Patient left via ambulance with oxygen. went separately. Belongings packed up by patient and family. Patient given discharge document completed by hospitalist. IV removed.
--- NOTE | 2024-07-27 16:19 | W.PN.HOSP.TC ---
Addendum entered and electronically signed by Loreta Guillaume MD 07/27/24 17:22:
I saw and evaluated the patient independently. I reviewed the resident�s note and agree with findings and plan as documented by Dr. Gilliam.
GENERAL: well developed, well nourished, male using NRB mask
HEENT: NC/AT--8L O2 with need for PRN NRB mask--83% on 8L NC without exertion
HEART: regular rate and rhythm, +S1, +S2
LUNGS : clear to auscultation bilaterally
ABDOM: soft, nontender, nondistended, + bowel sounds
EXT: no cyanosis, clubbing, or edema
NEUROLOGIC: grossly intact
Acute on chronic hypoxic respiratory failure from Acute diastolic heart failure versus pneumonia (has ILD, pulm HTN, lung cancer, and COPD)--was on HI BHARATHI--now back to 8 L but need NRB mask for rescue with exertion--apprec pulm--IV lasix as
needed--hospice appropriate but pt will NOT entertain even talking about it
Septic shock secondary to infection--came with enteritis/colitis and pna--Blood cultures negative, urine cultures negative, sputum culture positive Zeinab albicans (oral bianca)-Status post completed 10 days course of Zosyn-Blood pressure stable,
off pressors and midodrine
BHUMI on CKD stage IIIa-Secondary to suboptimal perfusion given hyperal tension requiring pressure support--Creatinine 2.3 on admission, back to baseline
HFpEF-Back to baseline weight. Lasix as needed
Sinus Tachycardia- c/w rate control Lopressor 5mg IV q6 w/ q4 prn.
Enteritis/Ileus, Cecal Colitis (RESOLVED)- CT findings suggestive of Enteritis/Ileus w/ Cecal Colitis, no appendicitis. No evidence for bowel ischemia- GI consulted, no plans for endoscopy/colonoscopy given current clinical condition--Denies
abdominal pain today, with frequent bowel movements likely from antibiotics. Tolerating regular diet.
Hypoglycemia/IDDM--insulin dose reduced---Hemoglobin A1c 7.3
History of PE--Off heparin ggt, platelet drop. C/w Eliquis.
H/o Heart Failure, s/p Heart transplant 2001 (on chronic immunosuppression)- c/w tacrolimus & cellcept.
Interstitial lung disease, pulmonary Hypertension, COPD- recent echo 07/13/24 showing PASP 75-80 mmHg. Likely contributing to his chronic hypoxia- On home 8 L nasal cannula
AAA
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
Essential Hypertension -continue metoprolol IV, will transition to p.o. for discharge planning
Hypercholesterolemia - c/w gemfibrozil
DVT Proph - Eliquis.
Code Status - FULL CODE--pt reversed his own DNR status which was done by his FAMILY and intimated that it was our doing--he is NOW FULL CODE--of note, IF he gets intubated, he will never come off the ventilator
pt is hospice appropriate but does not wish to discuss--his plan is to go home and if he needs to come back (which he will) he will come back to the hospital--he only has O2 to 10L at home--NRB mask unable to be obtained in home use--plan was for
SNF BUT no one will take him on that amt of O2 OR NRB mask--he is unreasonable and does NOT understand the severity of his illness
Today, 07/27/24 --patient told me he was leaving the hospital--I indicated that since he is now full code and his pulse ox was 83% on 8 L (not recovering) that I could not discharge him home as it was not a safe discharge--he is free to leave AGAINST
MEDICAL ADVICE if he wishes to go home--I did review the AGAINST MEDICAL ADVICE form and the risks of leaving which include stroke, hypoxemic and respiratory failure, intubation, --he signed the form
We have arranged ambulance transfer to home given his oxygen requirements
Original Note:
Today's Communication/Plan
-
Pt has left against medical advice
Assessment / Plan
Assessment / Plan
83 year old male who presents with hx of heart transplant 2001 on chronic immunosuppression, PE on Eliquis, lung cancer, chronic hypoxia on 8 L home O2, who presents with acute on chronic hypoxic respiratory failure, altered mental status,
enteritis/colitis.
Acute on chronic hypoxic respiratory failure
-Acute diastolic heart failure versus pneumonia
-Baseline O2 requirement 8 L nasal cannula at home
-Was back to baseline 8 L nasal cannula, requiring 15 L nonrebreather with exertion/speech/eating. Of note, patient remains at 83% on 8L NC without exertion.
-Down to baseline weight, IV Lasix as needed.
-Appreciate pulm recs
Septic shock secondary to infection:
Meets SIRS -hypotensive requiring pressure support with Levophed, tachycardic, tachypneic, leukocytosis, lactic acidosis
Pneumonia versus enteritis/colitis
-Blood cultures negative, urine cultures negative, sputum culture positive Zeinab albicans (oral bianca)
-Status post completed 10 days course of Zosyn
-Blood pressure stable, off pressors and midodrine
BHUMI on CKD stage IIIa:
-Secondary to suboptimal perfusion given hypertension requiring pressure support
-Creatinine 2.3 on admission, back to baseline
HFpEF:
-Back to baseline weight. Lasix as needed
Sinus Tachycardia
- c/w rate control Lopressor 5mg IV q6 w/ q4 prn.
Enteritis/Ileus, Cecal Colitis
- CT findings suggestive of Enteritis/Ileus w/ Cecal Colitis, no appendicitis. No evidence for bowel ischemia.
- GI consulted, no plans for endoscopy/colonoscopy given current clinical condition.
-Denies abdominal pain today, with frequent bowel movements likely from antibiotics. Tolerating diet.
-appreciate GI recs.
Hypoglycemia
IDDM
-His home dose of insulin has been modified. Currently on 10U long acting QHS, rather than BID. MDISS. will increase to 12U HS
Hemoglobin A1c 7.3
History of PE -
Off heparin ggt, platelet drop. C/w Eliquis.
- Continue to monitor platelet. Consider hematology consult if continued downtrend
H/o Heart Failure, s/p Heart transplant 2001 (on chronic immunosuppression)
- c/w tacrolimus & cellcept.
Interstitial lung disease, pulmonary Hypertension, COPD
- recent echo 07/13/24 showing PASP 75-80 mmHg. Likely contributing to his chronic hypoxia.
- On home 8 L nasal cannula
AAA
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
#Essential Hypertension -continue metoprolol IV, will transition to p.o. for discharge planning
#Hypercholesterolemia - c/w gemfibrozil
Diet - Low Residue/Low Lactose
DVT Ppx - Eliquis.
Code Status - Full Code
Prognosis is poor. Hospice appropriate. Pt is uninterested in discussing hospice at this time.
Note: Pt insisted on being discharged to his home today. Given his worsened respiratory status he was advised that discharging him would be unsafe. Unfortunately, he decided to leave AGAINST MEDICAL ADVICE. Risks of leaving AGAINST MEDICAL ADVICE
were explained to him including cardiorespiratory arrest, intubation, and . He was advised of his right to leave and his wish was respected. Transportation by ambulance was arranged.
Anticipated Discharge: Today
Subjective/Interval History
-
Date of Service: July 27, 2024
Pt was not pleased with DNR status as decided by his family upon admission. He requests change of status to full code. Status changed promptly.
Objective Data
-
Labs:
Laboratory Results
07/27/24
05:14
WBC 10.2
Hgb 13.8
Hct 44.0
Plt Count 57 L
Vital Signs:
Vital Signs
Temp Pulse Resp BP Pulse Ox
97.6 F 114 20 102/87 93
07/27/24 07:27 07/27/24 12:58 07/27/24 12:58 07/27/24 12:50 07/27/24 12:58
I&O
07/26/24 07/27/24 07/28/24
06:59 06:59 06:59
Intake Total 720 / 720 240 / 240 200 / 200
Output Total 725 / 725
Balance 720 / 720 -485 / -485 200 / 200
Review of Systems
-
History Source: Patient
Respiratory: Reports Trouble Breathing (with exertion)
Cardiac: Denies Chest Pain
Abdomen/GI: Reports Diarrhea; Denies Abdominal Pain, Nausea, Vomiting or Bloody Stools
Genitourinary: Denies Dysuria or Difficulty Voiding
Physical Exam
-
General: Respiratory Distress and Appears Chronically Ill
HEENT: Normocephalic, Atraumatic and Moist Mucous Membranes
Respiratory: Rhonchi (mild, scattered), Accessory Resp Muscle Use and Other (Respiratory distress apparent with speaking)
Cardiac: Regular Rhythm and S1/S2; Negative Murmur or Calf Tenderness
GI: Soft, Nontender, Nondistended and Normal Bowel Sounds
Musculoskeletal: Edema, Right Lower Extrem and Edema, Left Lower Extrem
Skin: Dry
Neuro: Awake, Alert, Oriented and No Motor Deficits
Psych: Calm
--- NOTE | 2024-07-27 17:28 | W.DCSUMMARY ---
Discharge Summary
Discharge Data
Date of Admission: 07/13/24
Date of Discharge: 07/27/24
Total time spent discharging patient (in min): 60 minutes
-
Pending Results: No
Hospital Course
Primary care physician : Milan Spear
Principal Discharge diagnosis : Acute on chronic hypoxemic respiratory failure from acute diastolic heart failure/pneumonia/interstitial lung disease/pulmonary hypertension/lung cancer/chronic obstructive pulmonary disease, septic shock secondary to
infection from enteritis/colitis/pneumonia, acute kidney injury on chronic kidney disease stage III, acute heart failure with preserved ejection fraction
Chronic Discharge diagnosis : type 2 diabetes mellitus insulin requiring/hypoglycemia, history of pulmonary embolism, history of heart transplant 2001 on chronic immunosuppressive therapy, essential hypertension, hyperlipidemia, abdominal aortic
aneurysm , hypothyroidism, chronic neuropathy.
Consultants: Animal Keeper/pulmonary, infectious disease, cardiology, nephrology, palliative care, hospice
Hospital Course : Patient was an 83-year-old male with a past medical history of ischemic cardiomyopathy status post heart transplant in 2001, coronary artery disease, pulmonary embolism on Eliquis, severe pulmonary hypertension, abdominal aortic
aneurysm status post ED HU complicated by endoleak, squamous cell lung cancer stage III, chronic obstructive pulmonary disease, interstitial lung disease, hypothyroidism, type 2 diabetes, who presented for diffuse abdominal pain starting 2 days
prior to admission with vomiting. CAT scan of the abdomen and pelvis showed enteritis/ileitis and the patient was admitted.
Problem #1: Acute on chronic hypoxemic respiratory failure from acute diastolic heart failure/pneumonia. Patient was on 8 L of oxygen chronically at home with a concentrator that went up to 10 L. Due to to his septic shock and acute heart failure
along with his underlying lung comorbidities, patient had been in the intensive care unit on high flow oxygen. Patient was started on Zosyn and doxycycline for nosocomial pneumonia and completed his antibiotic course on July 24, 2024. He was
on stress dose steroids which were weaned off and he was continued on his Symbicort and Spiriva. At the time of discharge, patient was on 8 L of oxygen and saturating 83% along with using a nonrebreather mask for 'rescue'. He was full code on
admission, family made him DO NOT RESUSCITATE/DO NOT INTUBATE based on his critically ill picture in the intensive care unit. Patient became irate on the day prior to discharge and stated that he wished to be full code. He also seemed to insinuate
that it was 'our doing' to have made him DO NOT RESUSCITATE. He was told that if he were to get intubated that he would never come off and that his family would need to withdraw care. He did not care and continued to insist that he would be full
code. Please see below discussion regarding discharge planning.
Problem #2: Septic shock secondary to enteritis, colitis, pneumonia. Patient was admitted to the intensive care unit as mentioned and full support was provided. This included pressors, stress dose steroids, IV fluids, antibiotic therapy. By the
end of his hospitalization, all of this had resolved and his oxygen levels were weaned back to his 8 L.
Problem #3: Acute kidney injury on chronic kidney disease stage IIIa. This was thought to be secondary to suboptimal perfusion with his sepsis and need for pressors. Creatinine on admission was 2.3. Nephrology was consulted as mentioned. Once
stable, diuresis was provided. Creatinine returned to baseline (1.1) at discharge
Problem #4: Acute heart failure with preserved ejection fraction/sinus tachycardia/cardiac transplant/history of pulmonary embolism. Patient was seen in consultation by cardiology. He was continued on his immunosuppressive therapy and
antirejection medications. Because of this, infectious disease was also consulted to help with antibiotic choices. Echocardiogram is listed below. After appropriate fluid resuscitation, patient was diuresed. Patient did have normal troponins
along with a hyperdynamic left ventricle and therefore cardiogenic shock or acute rejection were both ruled out. He was also provided IV Lopressor for rate control but did remain tachycardic throughout his hospitalization. He was started on
heparin drip however, platelets did drop. This was thought to be more due to sepsis. Heparin drip was eventually stopped and patient was transferred back to [facility].
Problem #5: Type 2 diabetes mellitus insulin requiring with hypoglycemia. Patient's insulin was adjusted and his home dose was reduced. By the end of his hospitalization, sugars were starting to creep back up again. Insulin dosing was again
adjusted. Hemoglobin A1c was checked and found to be 7.3
Problem #6: All other medical issues. These include abdominal aortic aneurysm, right lower lobe squamous cell carcinoma s/p radiation, essential hypertension, hyperlipidemia, hypothyroidism, chronic neuropathy. These medical issues were stable
during his hospitalization. Medications were continued as able.
Discharge planning:
pt is hospice appropriate but does not wish to discuss--his plan is to go home and if he needs to come back (which he will) he will come back to the hospital--he only has O2 to 10L at home--NRB mask unable to be obtained in home use--plan was for
SNF BUT no one will take him on that amt of O2 or NRB mask--he is unreasonable and does NOT seem to understand the severity of his illness--palliative care also as recently as 07/19/2024 discussed hospice with him. He was not interested in hospice
according to their note--
07/27/24 --patient told me he was leaving the hospital--I indicated that since he is now full code and his pulse ox was 83% on 8 L (not recovering) that I could not discharge him home as it was not a safe discharge--he became irate again and insisted
on leaving--he is free to leave AGAINST MEDICAL ADVICE if he wishes to go home--I did review the AGAINST MEDICAL ADVICE form and the risks of leaving which include stroke, hypoxemic and respiratory failure, intubation, --he signed the form--I
have no reason to believe that he cannot make appropriate informed decisions
We have arranged ambulance transfer to home given his oxygen requirements
Patient is NOT stable to be discharged home but has elected to leave the hospital AGAINST MEDICAL ADVICE. If there are any questions regarding this dictation or his hospital stay, please do not hesitate to call. Our office number is [phone].
Time for discharge 60 minutes.
Important imaging findings :
CT SCAN ABDOMEN/PELVIS IMPRESSION:
1. Grossly stable diffuse enteritis/ileus. No cristy obstruction. No overt CT evidence for bowel ischemia.
2. Probable reactive cecal colitis, progressed. The appendix is seen arising from the medial aspect of this inflamed portion of cecum, without overt evidence for acute appendicitis.
3. Small volume abdominopelvic ascites, slightly improved.
4. Small bilateral pleural effusions, stable on the left and slightly improved on the right, with associated bilateral lower lobe pleural-based consolidation which may reflect a combination of rounded atelectasis and pneumonia.
07/26/23 CHEST X-RAY IMPRESSION:
Bibasilar opacification again seen compatible with small bilateral pleural effusions and accompanying subsegmental atelectasis and/or pneumonia, perhaps slightly increased.
Procedure findings :
ECHO CONCLUSIONS:
Normal LV size with hyperdynamic function.
Enlarged RV with mildly reduced function.
Moderate LA dilation. Mild RA dilation.
No significant valvular abnormalities.
Severely elevated PASP 75-80 mmHg
Compared to the prior study of 03/01/2024, LV function is more hyperdynamic on
the present study and there are otherwise no significant changes.
Discharge Plan
-
Patient Disposition: Against Medical Advice
Discharge Diagnosis/Procedures: Septic shock, acute on chronic hypoxic respiratory failure, pneumonia, enteritis, colitis, acute kidney injury on chronic kidney disease
Condition: Critical
Diet: Low Sodium and Restrict fluids to 48 oz
Activity: With assistance
Driving Restrictions: No driving
Bathing Restrictions: None
Other Services: VN
Specialty Instructions: Weigh Daily- Call MD for wt gain/loss 3 lbs overnight/5 lbs in 1 week
Instructions: *[facility] Heart Failure Instructions
Referrals:
Juan Jose Spear MD [Family Provider] -
Prescriptions:
New
tamsulosin 0.4 mg Capsule
0.4 mg PO DAILY Qty: 30 0RF
furosemide 10 mg/mL Solution
20 mg IV DAILYPRN PRN (Reason: fluid retention) Qty: 30 0RF
Continued
levothyroxine 175 mcg Tablet
175 mcg PO DAILY
gabapentin 600 mg Tablet
600 mg PO TID
mycophenolate mofetil 250 mg Capsule
750 mg PO BID
therapeutic multivitamin Tablet
1 tab PO DAILY
gemfibrozil 600 mg Tablet
600 mg PO BID
tacrolimus 0.5 mg Capsule
1 mg PO HS
Patient Comments:
07/14/24 MB: confirmed dose w/ patient and family again
tacrolimus 0.5 mg Capsule
1.5 mg PO DAILY
Patient Comments:
07/14/24 MB: confirmed dose w/ patient and family again
rosuvastatin 20 mg Tablet
20 mg PO HS
Eliquis 5 mg Tablet
5 mg PO BID
Trelegy Ellipta 100-62.5-25 mcg Blister With Device
1 inh INHALATION R DAILY
magnesium oxide 400 mg magnesium Tablet
600 mg PO DAILY
calcium carbonate [Oyster Shell 600] 600 mg calcium (1,500 mg) Tablet
600 mg PO DAILY
Changed
insulin glargine [Basaglar KwikPen U-100 Insulin] 100 unit/mL (3 mL) Insulin Pen
12 unit SC BID Qty: 0 0RF
Held
enalapril maleate 20 mg Tablet
20 mg PO BID
Hold Instructions: Please speak to PCP before continuing this medication
dapagliflozin propanediol [Farxiga] 10 mg Tablet
10 mg PO DAILY
Hold Instructions: Please see PCP before continuing this medication
metoprolol tartrate 100 mg tablet
100 mg PO BID
Hold Instructions: See your PCP before continuing this medication
Discharge Orders:
Discharge Patient (As Directed); Ordered 07/27/24
Ordered By: Alyssia Gilliam
Discharge Date and Time
Discharge Date/Time: 07/27/24 13:29
Print Language: SWEDISH
== END 2024-07-27 13:29 | disposition left against medical advice (07) | DRG 871 ==
LOC: IMU 12:58
PROVIDERS: Family Medicine; Internal Medicine; Nurse Practitioner Adult Health; Nurse Practitioner Family; Nurse Practitioner Gerontology; Nurse Practitioner Primary Care; Specialist; Student in an Organized Health Care Education/Training Program; ADMITTING PHYSICIAN Hospitalist; ATTENDING PHYSICIAN Internal Medicine; CONSULT PHYSICIAN Internal Medicine Critical Care Medicine; CONSULT PHYSICIAN Internal Medicine Hospice and Palliative Medicine; CONSULT PHYSICIAN Student in an Organized Health Care Education/Training Program; CONSULT PHYSICIAN Surgery Vascular Surgery; EMERGENCY PHYSICIAN Emergency Medicine; FAMILY PHYSICIAN Internal Medicine; OTHER PHYSICIAN Specialist; OTHER PHYSICIAN Student in an Organized Health Care Education/Training Program
PROC: 5A0945A Assistance with Respiratory Ventilation, 24-96 Consecutive Hours, High Flow/Velocity Cannula (ICD-10-PCS; 2024-07-14)
DX: A41.9 Sepsis, unspecified organism (principal); I50.31 Acute diastolic (congestive) heart failure; R65.21 Severe sepsis with septic shock; J96.21 Acute and chronic respiratory failure with hypoxia; J18.9 Pneumonia, unspecified organism; I13.0 Hypertensive heart and chronic kidney disease with heart failure and stage 1 through stage 4 chronic kidney disease, or unspecified chronic kidney disease; Z94.1 Heart transplant status; E87.20 Acidosis, unspecified; K56.7 Ileus, unspecified; M48.56XA Collapsed vertebra, not elsewhere classified, lumbar region, initial encounter for fracture; J98.11 Atelectasis; D84.821 Immunodeficiency due to drugs; R18.8 Other ascites; A09 Infectious gastroenteritis and colitis, unspecified; N17.9 Acute kidney failure, unspecified; I97.89 Other postprocedural complications and disorders of the circulatory system, not elsewhere classified; C34.31 Malignant neoplasm of lower lobe, right bronchus or lung; J90 Pleural effusion, not elsewhere classified; B37.0 Candidal stomatitis; I25.811 Atherosclerosis of native coronary artery of transplanted heart without angina pectoris; E11.22 Type 2 diabetes mellitus with diabetic chronic kidney disease; E78.00 Pure hypercholesterolemia, unspecified; E11.40 Type 2 diabetes mellitus with diabetic neuropathy, unspecified; N18.31 Chronic kidney disease, stage 3a; G70.00 Myasthenia gravis without (acute) exacerbation; I71.40 Abdominal aortic aneurysm, without rupture, unspecified; I25.5 Ischemic cardiomyopathy; E89.0 Postprocedural hypothyroidism; R63.4 Abnormal weight loss; I27.20 Pulmonary hypertension, unspecified; J43.9 Emphysema, unspecified; K21.9 Gastro-esophageal reflux disease without esophagitis; K44.9 Diaphragmatic hernia without obstruction or gangrene; K57.30 Diverticulosis of large intestine without perforation or abscess without bleeding; L40.9 Psoriasis, unspecified; Y95 Nosocomial condition; R44.1 Visual hallucinations; E11.649 Type 2 diabetes mellitus with hypoglycemia without coma; D69.6 Thrombocytopenia, unspecified; R31.29 Other microscopic hematuria; K59.00 Constipation, unspecified; E87.6 Hypokalemia; Y83.1 Surgical operation with implant of artificial internal device as the cause of abnormal reaction of the patient, or of later complication, without mention of misadventure at the time of the procedure; Y71.2 Prosthetic and other implants, materials and accessory cardiovascular devices associated with adverse incidents; Y92.9 Unspecified place or not applicable; Z79.624 Long term (current) use of inhibitors of nucleotide synthesis; Z79.890 Hormone replacement therapy; Z86.79 Personal history of other diseases of the circulatory system; Z86.711 Personal history of pulmonary embolism; Z92.3 Personal history of irradiation; Z87.891 Personal history of nicotine dependence; Z91.030 Bee allergy status; Z91.041 Radiographic dye allergy status; Z79.01 Long term (current) use of anticoagulants; Z79.4 Long term (current) use of insulin; Z86.16 Personal history of COVID-19; Z82.3 Family history of stroke; Z82.49 Family history of ischemic heart disease and other diseases of the circulatory system; Z79.621 Long term (current) use of calcineurin inhibitor; Z87.442 Personal history of urinary calculi; Z99.81 Dependence on supplemental oxygen; Z11.52 Encounter for screening for COVID-19
CPT/HCPCS: 71045; 71250; 74018; 74174; 80048; 80053; 80197; 81003; 81015; 82248; 82330; 82570; 82805; 82947; 82962; 83036; 83605; 83690; 83735; 83880; 84132; 84145; 84300; 84443; 84484; 85025; 85027; 85384; 85610; 85730; 87040; 87070; 87086; 87205; 87811; 93005; 93306; 94640; 94667; 94668; 94669; 96361; 96374; 96375; 97116; 97163; 97167; 97530; 97535; 99291; Q9950; Q9967